=== PATIENT | female | born 1950 | race Caucasian/White ===

== ENCOUNTER 2021-01-04 09:19 | Emergency (ER) | payer OTHER, SELFPAY ==
[2021-01-04] VITALS (8 sets, daily range): BP systolic 135–160; BP diastolic 76–93; PULSE 68–80; RESP 12–19; TEMP 36.4; O2SAT 97–99
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
--- NOTE | ~2021-01-04 | CT_ITS ---
EXAMINATION: CT brain wo con EXAM DATE: 01/04/2021 10:55 INDICATION: History of seizures with breakthrough seizure . History stroke and dementia. TECHNIQUE: Spiral CT of the head was performed without contrast. Axial, coronal and sagittal images were reviewed. The dose-length product (DLP) for this examination was 605.33 mGy-cm. The exposure w as tailored according to patient size, and iterative reconstruction (ASIR) was used as additional dos e reduction technique. Comparison is made to prior examination from 11/27/2018. FINDINGS: There is a right frontal ventricular shunt, tip at the midline of the lateral ventricles. C ongenital cavum septum pellucidum. There is a large old right frontal lobe infarction, middle cerebra l artery distribution. There is moderate microangiopathy and mild to moderate cerebral atrophy. No obstructive hydrocephalus, extra-axial collections, acute intracranial hemorrhage, brain mass or e vidence of acute ischemic infarction. There is no significant interval change. Mastoid air cells and visualized sinuses are well aerated. The soft tissue is unremarkable. IMPRESSION: 1. No acute findings or interval change. 2. Large old right MCA infarction. 3. Senescent changes. Reviewed, dictated and finalized at location B.
--- NOTE | 2021-01-04 09:33 | ECG_ITS ---
Measurements Intervals [place] Rate: 0 P: [place]: 0 QRS: QRSD: 0 T: QT: 0 QTc: 0 Interpretive Statements SINUS RHYTHM INCOMPLETE RIGHT BUNDLE BRANCH BLOCK LOW VOLTAGE- PRECORDIAL LEADS BASELINE ARTIFACT- II, III, AVR, AVL ,AVF, V1-V6 BORDERLINE ECG Electronically Signed On 01-04-2021 14:44:24 CDT by Elia Kelley D.O.
[2021-01-04 09:56] LABS: Add Urine Microscopic? YES; Appearance Urine Cloudy (Clear); Bacteria Urine 3+ /hpf; Bilirubin Urine Negative (Negative); Blood Urine Negative (Negative); Color Urine Red (Yellow); Glucose Urine UA Negative (Negative); Ketones Urine Negative (Negative); Leukocyte Esterase Ur Trace LEU/UL (Negative); Mucus Urine Rare /lpf; Nitrate Urine Positive (Negative); Protein Urine 2+ mg/dL (Negative); Specific Grav Ur 1.016 (1.001-1.035); Squamous Epithelial Cell Urine Many /hpf (Few); Urobilinogen Urine Negative mg/dL (<2.0); WBC Urine 21-30 /hpf
--- NOTE | 2021-01-04 09:59 | ED.SEIZURE ---
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 Patient reportedly had a seizure witnessed by boyfriend this morning. Generalized shaking activity noted, lasted for approximately 1 to 2 minutes. EMS was called, patient was postictal at the time of their assessment. She was transported to this facility and is currently back to baseline. She is pleasant denies any acute complaints. She has been compliant with her Keppra. States she has not had a breakthrough seizure in a couple of years. Per my chart review, last admission was in 2018 for breakthrough seizure. Patient denies fever, chills or urinary symptoms. Related Data Home Medications Medication Instructions Recorded Confirmed acetaminophen 500 mg capsule See Rx Instructions .ROUTE .COMPLEX 09/01/19 doxycycline hyclate 100 mg capsule 100 mg PO BID cap 09/01/19 polyethylene glycol 3350 17 See Rx Instructions .ROUTE .COMPLEX 09/01/19 gram/dose oral powder phenytoin sodium extended 100 mg 100 mg PO BID cap 09/02/19 capsule Allergies Allergy/AdvReac Type Severity Reaction Status Date / Time codeine Allergy Unknown Unknown Verified 01/04/21 09:24 Review of Systems Review of Systems: Narrative: CONSTITUTIONAL: Denies fever, chills, or sweats. EYES: Denies visual changes, redness, or discharge. ENT: Denies rhinorrhea, congestion, sore throat, or otalgia. CARDIOVASCULAR: Denies chest pain, palpitations, or edema. RESPIRATORY: Denies cough or dyspnea. GASTROINTESTINAL: Denies abdominal pain, nausea, vomiting, or diarrhea. GENITOURINARY: Denies dysuria or hematuria. SKIN: Denies rash or itching. MUSCULOSKELETAL: Denies back pain, joint pain, or myalgia. NEUROLOGIC: Denies headache, numbness, or weakness. [facility] Past Medical History Medical History (Updated 01/04/21 @ 12:27 by Mónica Quintana MD) HLD (hyperlipidemia) HTN (hypertension) Seizures Family History Family History Father Family history of heart disease in male family member before age 55 Family history of cardiovascular disease Social History Social History Smoking status: Former smoker Alcohol intake: never Exam Narrative: Exam Narrative: GENERAL: Awake, alert, conversant HEAD: Normocephalic, atraumatic. EYES: PERRLA and EOMI. ENT: Nares clear, no rhinorrhea or epistaxis. Mucous membranes moist. NECK: Supple. CHEST: No respiratory distress, breathing even and non labored HEART: Regular rate, sinus rhythm ABDOMEN:Non distended, non tender EXTREMITIES: Normal range of motion. No edema. SKIN: Warm, dry, no rash. NEURO:No focal deficits. Alert and oriented x3 Course Vital Signs Vital signs: Vital Signs Temperature 36.4 C L 01/04/21 09:18 Pulse Rate 74 01/04/21 09:18 Respiratory Rate 18 01/04/21 09:18 Blood Pressure 160/90 H 01/04/21 09:18 Pulse Oximetry 97 01/04/21 09:18 Temperature 36.4 C L 01/04/21 09:18 Pulse Rate 80 01/04/21 11:23 Respiratory Rate 12 01/04/21 10:42 Blood Pressure 136/85 01/04/21 11:23 Pulse Oximetry 98 01/04/21 10:42 MDM - Seizure MDM Narrative Medical decision making narrative: Patient presenting for evaluation of breakthrough seizure this morning. At the time of assessment, patient is at baseline mentation, feeling well. No acute complaints. She states she has been compliant with her medications as he is are administered through t
[2021-01-04 10:27] LABS: Basophils Absolute Auto 0.1 K/mm3 (0.0-0.1); Basophils Percent Auto 0.6 % (0.2-1.2); Eosinophils Absolute Auto 0.2 K/mm3 (0-0.3); Eosinophils Percent Auto 2.7 % (0-4.4); Hematocrit 38.4 % (37.0-47.0); Hemoglobin 12.5 g/dL (12.0-15.0); Immature Granulocyte Absolute 0.04 K/mm3 (0.00-0.031); Immature Granulocyte Percent A 0.5 % (0-0.5); Lymphocytes Absolute Auto 1.32 K/mm3 (0.9-3.2); Lymphocytes Percent Auto 16.9 % (18.3-44.2); Mean Corpuscular HGB Conc 32.6 g/dl (32-36); Mean Corpuscular Hemoglobin 30.3 pg (26-34); Mean Platelet Volume 10.3 fl (7.4-10.4); Monocytes Absolute Auto 0.4 K/mm3 (0.1-0.6); Monocytes Percent Auto 5.5 % (2.6-8.5); Neutrophils Absolute Auto 5.8 K/mm3 (1.3-6.7); Neutrophils Percent Auto 73.8 % (45.5-73.1); Platelet Count Result 264 k/mm3 (150-375); Red Blood Count 4.13 M/mm3 (4.2-5.4); Red Cell Distribution Width 13.2 % (11.5-14.5); White Blood Count 7.8 K/mm3 (4.5-10.0)
--- NOTE | 2021-01-04 10:40 | PC.NURSE ---
Called Celeste degroot (or Jennifer?), added on Keppra [phone]
[2021-01-04 10:42] LABS: Alanine Aminotransferase 14 U/L (4-35); Albumin Level 4.4 g/dL (3.5-5.1); Alkaline Phosphatase 122 U/L (38-126); Anion Gap 9 mmol/L (8-16); Aspartate Amino Transferase 23 U/L (14-36); Bilirubin,Total 0.3 mg/dL (0.2-1.3); Blood Urea Nitrogen 12 mg/dL (7-17); Calcium 9.7 mg/dL (8.4-10.2); Carbon Dioxide 28 mmol/L (22-30); Chloride 106 mmol/L (98-107); Estimated Glomerular Filt Rate > 60; Glucose 120 mg/dL (65-105); Potassium 3.9 mmol/L (3.4-5.0); Sodium 143 mmol/L (137-145)
--- NOTE | 2021-01-04 13:17 | PC.NURSE ---
Called Suki degroot, added on Phenytoin [phone]
[2021-01-04 13:29] LABS: Phenytoin Dilantin 4 ug/mL (10-20)
[2021-01-06 21:12] LABS: Levetiracetam Keppra 18.7 mcg/mL (12.0-46.0)
== END 2021-01-04 13:19 ==
PROVIDERS: Emergency Provider Emergency Medicine; PCP Emergency Medicine
DX: R56.9 Unspecified convulsions (principal); N39.0 Urinary tract infection, site not specified; I10 Essential (primary) hypertension; E78.5 Hyperlipidemia, unspecified; Z87.820 Personal history of traumatic brain injury; Z87.891 Personal history of nicotine dependence; Z98.2 Presence of cerebrospinal fluid drainage device; I45.10 Unspecified right bundle-branch block
CPT/HCPCS: 36415; 51701; 70250; 70450; 71045; 74018; 80053; 80177; 80185; 81001; 85025; 87077; 87086; 87088; 87186; 93005; 99284

== ENCOUNTER 2021-03-25 11:31 | Emergency (ER) | payer OTHER, SELFPAY ==
--- NOTE | ~2021-03-25 | CT_ITS ---
EXAMINATION: CT abdomen pelvis wo con DATE: 03/25/2021 13:17 INDICATION: Lower abdominal pain TECHNIQUE: Computed tomography (CT) of the abdomen and pelvis was performed without intravenous contr ast. The dose-length product (DLP) was 999.60 mGy-cm. Automated exposure control and iterative recons truction technique were employed. COMPARISON: None FINDINGS: Minimal dependent atelectasis is present in the lung bases. The heart size is normal. The g allbladder is surgically absent. Within the limitations of noncontrast examination, the liver, spleen , pancreas, and adrenal glands are normal. The kidneys are unremarkable. There is calcified atheroscl erosis of the aorta and many of the other arteries. Ventricular peritoneal shunt catheter tubing cour ses in the anterior abdominal wall and ends in the mid anterior abdomen. No pathologically enlarged a bdominal or pelvic lymph nodes are identified. There is no free intraperitoneal gas or evidence of adore wel obstruction. Colonic diverticulosis is present without evidence of diverticulitis. There is lumba r dextroscoliosis and severe spondylosis. There are compression fractures of T12 and L1. A fat-contai mireille umbilical hernia is noted. IMPRESSION: 1. No CT correlate for the patient's symptoms. Reviewed, dictated and finalized at location A.
[2021-03-25 11:30] VITALS: BP 182/86; PULSE 56; RESP 18; TEMP 36.6; O2SAT 100
--- NOTE | 2021-03-25 11:54 | ED.ABDPAIN ---
HPI - Abdominal Pain General Chief Complaint: Abdominal Pain Stated Complaint: ABD PAIN Time Seen by Provider: 03/25/21 11:47 Source: patient Mode of arrival: ambulatory Limitations: no limitations History of Present Illness HPI narrative: Patient is a 71-year-old female complaining of lower abdominal pain, dull, 5 out of 10, nonradiating started yesterday, now resolved, currently denies any chest pain. Patient denies any chest pain, shortness of breath, nausea, vomiting, diarrhea, urinary symptoms, fever or chills. Related Data Home Medications Medication Instructions Recorded Confirmed acetaminophen 500 mg capsule See Rx Instructions .ROUTE .COMPLEX 09/01/19 doxycycline hyclate 100 mg capsule 100 mg PO BID cap 09/01/19 polyethylene glycol 3350 17 See Rx Instructions .ROUTE .COMPLEX 09/01/19 gram/dose oral powder phenytoin sodium extended 100 mg 100 mg PO BID cap 09/02/19 capsule Allergies Allergy/AdvReac Type Severity Reaction Status Date / Time codeine Allergy Unknown Unknown Verified 03/25/21 12:31 Review of Systems Review of Systems: All systems reviewed & are unremarkable except as noted in HPI and below Constitutional: Constitutional: Denies body ache(s), Denies chills, Denies excessive sweating, Denies fatigue, Denies fever(s), Denies headache(s), Denies lethargy, Denies malaise, Denies weakness and Denies weight loss Eyes: Eyes: Denies blurry vision, Denies change in vision and Denies loss of vision ENT: Denies dizziness, Denies ear discharge, Denies headache(s), Denies lip swelling, Denies epistaxis, Denies nasal congestion, Denies neck pain, Denies throat swelling and Denies tongue swelling Cardiovascular: Cardiovascular: Denies chest pain, Denies chest pain at rest, Denies chest pain with activity, Denies diaphoresis, Denies rapid heart rate, Denies edema, Denies irregular heart rhythm, Denies lightheadedness, Denies palpitations, Denies dyspnea and Denies dyspnea on exertion Respiratory: Respiratory: Denies chest congestion, Denies cough, Denies hemoptysis, Denies dyspnea and Denies dyspnea on exertion Gastrointestinal: Gastrointestinal: Denies melena, Denies hematochezia, Denies diarrhea, Denies nausea, Denies vomiting and Denies hematemesis Musculoskeletal: Musculoskeletal: Denies abnormal gait, Denies deformity, Denies joint swelling, Denies limited range of motion, Denies neck pain and Denies numbness Neurologic: Denies Abnormal speech present, Denies abnormal gait, Denies confusion, Denies dizziness, Denies headache(s), Denies focal weakness, Denies loss of vision, Denies numbness, Denies Other visual disturbances, Denies Sensory deficit (Neuro) and Denies weakness Psychiatric: Psychiatric: Denies confusion, Denies depression, Denies auditory hallucinations, Denies homicidal ideation and Denies suicidal ideation Endocrine: Endocrine: Denies cold intolerance, Denies excessive sweating, Denies fatigue, Denies heat intolerance and Denies palpitations Hematologic/Lymphatic: Hematologic/Lymphatic: Denies easy bleeding and Denies easy bruising Allergic/Immunologic: Allergic/Immunologic: Denies lip swelling, Denies throat swelling and Denies tongue swelling PMFSH Past Medical History Medical History (Updated 03/25/21 @ 13:51 by Dayron Blankenship MD) HLD (hyperlipidemia) HTN (hypertension) Seizures Family History Family History Father Family history of heart disease in male family member before age 55 Family history of cardiovascular disease Social History Social History Smoking status: Former smoker Alcohol intake: never Exam Const: General: cooperative, healthy appearing, comfortable, no acute distress, well developed, alert and awake; No confusion Orientation/consciousness: oriented to person, oriented to place, oriented to time, patient oriented x3 and No
--- NOTE | 2021-03-25 11:58 | PC.NURSE ---
Pt attempting to provide urine sample at this time.
[2021-03-25 12:05] LABS: Basophils Percent Auto 0.6 % (0.2-1.2); Eosinophils Absolute Auto 0.2 K/mm3 (0-0.3); Eosinophils Percent Auto 2.8 % (0-4.4); Hematocrit 38.4 % (37.0-47.0); Hemoglobin 12.7 g/dL (12.0-15.0); Immature Granulocyte Absolute 0.01 K/mm3 (0.00-0.031); Immature Granulocyte Percent A 0.1 % (0-0.5); Lymphocytes Absolute Auto 1.97 K/mm3 (0.9-3.2); Lymphocytes Percent Auto 27.3 % (18.3-44.2); Mean Corpuscular HGB Conc 33.1 g/dl (32-36); Mean Corpuscular Hemoglobin 30.6 pg (26-34); Mean Corpuscular Volume 92.5 fl (80-100); Mean Platelet Volume 10.2 fl (7.4-10.4); Monocytes Absolute Auto 0.7 K/mm3 (0.1-0.6); Monocytes Percent Auto 9.2 % (2.6-8.5); Neutrophils Absolute Auto 4.3 K/mm3 (1.3-6.7); Platelet Count Result 251 k/mm3 (150-375); Red Blood Count 4.15 M/mm3 (4.2-5.4); Red Cell Distribution Width 12.7 % (11.5-14.5); White Blood Count 7.2 K/mm3 (4.5-10.0)
[2021-03-25] MEDS: LACTATED RINGERS 1,000 ML 200 ML IV CONT (12:09)
[2021-03-25 12:10] LABS: Alanine Aminotransferase 15 U/L (4-35); Albumin Level 4.2 g/dL (3.5-5.1); Alkaline Phosphatase 135 U/L (38-126); Anion Gap 7 mmol/L (8-16); Aspartate Amino Transferase 16 U/L (14-36); Bilirubin,Total 0.2 mg/dL (0.2-1.3); Blood Urea Nitrogen 12 mg/dL (7-17); Calcium 9.8 mg/dL (8.4-10.2); Carbon Dioxide 29 mmol/L (22-30); Chloride 102 mmol/L (98-107); Estimated CRCL calculation 82 ml/min; Estimated Glomerular Filt Rate > 60; Glucose 103 mg/dL (65-110); Lipase 77 U/L (23-300); Potassium 3.8 mmol/L (3.4-5.0); Sodium 138 mmol/L (137-145)
[2021-03-25 13:00] LABS: Add Urine Microscopic? YES; Appearance Urine Clear (Clear); Bilirubin Urine Negative (Negative); Blood Urine 2+ (Negative); Budding Yeast Urine Present /hpf; Color Urine Yellow (Yellow); Glucose Urine UA Negative (Negative); Ketones Urine Negative (Negative); Leukocyte Esterase Ur Negative LEU/UL (Negative); Mucus Urine Rare /lpf; Nitrate Urine Negative (Negative); Protein Urine Negative (Negative); RBC Urine 51-75 /hpf (0-2); Specific Grav Ur 1.011 (1.001-1.035); Squamous Epithelial Cell Urine Few /hpf (Few); Urobilinogen Urine Negative mg/dL (<2.0); WBC Urine 0-3 /hpf
[2021-03-25 14:32] VITALS: BP 180/78; PULSE 58; RESP 20; O2SAT 100
== END 2021-03-25 14:35 ==
PROVIDERS: Emergency Provider Emergency Medicine; PCP Pediatrics
DX: R10.30 Lower abdominal pain, unspecified (principal); E78.5 Hyperlipidemia, unspecified; I10 Essential (primary) hypertension; Z87.891 Personal history of nicotine dependence
CPT/HCPCS: 36415; 51701; 74176; 80053; 81001; 83690; 85025; 96360; 96361; 99284; J7120

== ENCOUNTER 2022-11-27 09:05 | Emergency (ER) | payer OTHER, SELFPAY ==
--- NOTE | ~2022-11-27 | CT_ITS ---
EXAMINATION: CT brain wo con DATE: 11/27/2022 09:29 INDICATION: Altered mental status. TECHNIQUE: Computed tomography (CT) of the head was performed without intravenous contrast. The mA wa s adjusted according to patient size. Iterative reconstruction technique was employed. The dose-lengt h product was 681.00 mGy-cm. COMPARISON: Head CT 01/04/2021 FINDINGS: There are embolization coils inferior to frontal horn of left lateral ventricle. There is c hronic encephalomalacia involving right frontal lobe and anterior right insula. There are scattered a reas of low attenuation in the cerebral white matter. There is a right frontal ventriculostomy cathet er with tip at the midline. There is no intracranial hemorrhage, acute infarction, or abnormal intrac ranial mass lesion. The ventricles are normal in size. Cavum septum pellucidum is noted. There is mil d mucosal thickening in the paranasal sinuses. The orbits are normal. The mastoid air cells are nagi l. IMPRESSION: 1. Chronic encephalomalacia involving right frontal lobe and anterior right insula. 2. Stable extensive nonspecific cerebral white matter disease, which likely represents chronic small vessel ischemic disease. Reviewed, dictated and finalized at location A. IMPRESSION: 1. Chronic encephalomalacia involving right frontal lobe and anterior right ins dewin. 2. Stable extensive nonspecific cerebral white matter disease, which likely rep resents chronic small vessel ischemic disease.
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
[2022-11-27 09:08] VITALS: BP 119/75; PULSE 79; RESP 20; TEMP 37.2; O2SAT 92
--- NOTE | 2022-11-27 09:11 | ECG_ITS ---
Measurements Intervals [place] Rate: 79 P: 13 MD: 180 QRS: 44 QRSD: 87 T: 49 QT: 374 QTc: 430 Interpretive Statements SINUS RHYTHM LOW QRS VOLTAGE IN PRECORDIAL LEADS EARLY PRECORDIAL R/S TRANSITION CONSIDER INFERIOR INFARCT, AGE INDETERMINATE BORDERLINE ST-T WAVE ABNORMALITY- ANTERIOR LEADS BASELINE ARTIFACT- I, III, AVL, V3 ABNORMAL ECG COMPARED TO ECG 01/04/2021 09:24:33 NO SIGNIFICANT CHANGES Electronically Signed On 11-27-2022 9:34:39 CDT by Elia Kelley D.O.
--- NOTE | 2022-11-27 09:24 | ED.WEAKNESS ---
HPI - Weakness General Chief complaint: Weakness Stated complaint: weakness, confusion History of Present Illness HPI Narrative: This is a 72-year-old female with past history of hypertension, seizure disorder who is brought in by EMS from her assisted for altered mental status. EMS reports the patient gradually developed confusion over the past day. She is alert and oriented x4 at baseline and generally mobile. Today she is oriented to self and location. Related Data Home Medications Medication Instructions Recorded Confirmed acetaminophen 500 mg capsule See Rx Instructions .Route .COMPLEX 09/01/19 11/21/22 (Mapap (acetaminophen)) polyethylene glycol 3350 17 See Rx Instructions .Route .COMPLEX 09/01/19 11/21/22 gram/dose oral powder (Miralax) Allergies Allergy/AdvReac Type Severity Reaction Status Date / Time codeine Allergy Unknown Unknown Verified 11/27/22 09:24 Review of Systems Review of Systems: Review of systems limited by patient's altered mental status CONSTITUTIONAL: Denies fever, chills, or sweats. CARDIOVASCULAR: Denies chest pain, palpitations, or edema. RESPIRATORY: Cough denies dyspnea. GASTROINTESTINAL: Denies abdominal pain, nausea, vomiting, or diarrhea. GENITOURINARY: Denies dysuria or hematuria. SKIN: Denies rash or itching. MUSCULOSKELETAL: Denies back pain, joint pain, or myalgia. NEUROLOGIC: Denies headache, numbness, dizziness, or weakness. PSYCHIATRIC: Denies anxiety or depression. [facility] Past Medical History Medical History Aneurysm Shunt, 2001 Arthritis History of stroke with residual deficit HLD (hyperlipidemia) HTN (hypertension) Melanoma Seizures Stroke Family History Family History Father Family history of heart disease in male family member before age 55 Family history of cardiovascular disease Hypertension Mother Cerebrovascular accident Social History Social History Smoking status: Former smoker Tobacco type: cigarettes Alcohol intake: never Substance use: never Lack of Transportation: No Lack of Food: Never True Current Housing: I Have Housing Concerned About Future Housing: No Difficulty Paying Gas/Electric Bills: No Difficulty Paying for Meds: No Currently Unemployed: No Education: High School Diploma/GED Difficulty w/ Childcare or Family Care: No Living arrangements: assisted Additional living arrangements comments: Inderjit Soto Exam Narrative: GENERAL: Well-developed, well-nourished, and in no acute distress. Smells strongly of urine HEAD: Normocephalic, atraumatic. EYES: PERRLA and EOMI. ENT: Nares clear, no rhinorrhea or epistaxis. Mucous membranes moist. Oropharynx without tonsillar hypertrophy exudate or other lesions. Bilateral TMs pearly cooper nonbulging NECK: Supple. No adenopathy or masses. No carotid bruits or JVD. No midline spine tenderness to palpation, no step-off or crepitus CHEST: Clear to auscultation. No respiratory distress. No wheezes rales or rhonchi HEART: Regular rate and rhythm. No murmur heard. Normal peripheral pulses. ABDOMEN: Soft, nontender, nondistended, normal active bowel sounds. EXTREMITIES: Normal range of motion. No edema. SKIN: Warm, dry, no rash. NEURO: No focal deficits. Alert and oriented x2 to self and location. Strength 5/5 in all extremities, sensation intact bilaterally PSYCH: Normal mood and affect. Course Course Emergency Course: 11:30 - UA consistent with urinary tract infection. CBC unremarkable. Chemistries demonstrate mild hyponatremia of 132 but otherwise unremarkable. Troponin negative. Urine drug screen negative. Chest x-ray not concerning for pneumonia or other acute cardiothoracic process. CT head shows chronic encephalomalacia without acute changes including ma
[2022-11-27 09:30] VITALS: BP 125/69; PULSE 83; RESP 16; O2SAT 94
[2022-11-27] MEDS: SODIUM CHLORIDE 0.9% IV 1,000 ML 999 ML IV CONT (09:46)
[2022-11-27 09:49] LABS: Basophils Absolute Auto 0.1 K/mm3 (0.0-0.1); Basophils Percent Auto 0.7 % (0.2-1.2); Eosinophils Absolute Auto 0.2 K/mm3 (0-0.3); Eosinophils Percent Auto 2.9 % (0-4.4); Hemoglobin 12.4 g/dL (12.0-15.0); Immature Granulocyte Absolute 0.02 K/mm3 (0.00-0.031); Immature Granulocyte Percent A 0.3 % (0-0.5); Lymphocytes Percent Auto 17.7 % (18.3-44.2); Mean Corpuscular HGB Conc 33.5 g/dl (32-36); Mean Corpuscular Hemoglobin 30.8 pg (26-34); Mean Corpuscular Volume 91.8 fl (80-100); Mean Platelet Volume 10.2 fl (7.4-10.4); Monocytes Absolute Auto 0.7 K/mm3 (0.1-0.6); Monocytes Percent Auto 9.9 % (2.6-8.5); Neutrophils Absolute Auto 4.6 K/mm3 (1.3-6.7); Neutrophils Percent Auto 68.5 % (45.5-73.1); Platelet Count Result 230 k/mm3 (150-375); Red Blood Count 4.03 M/mm3 (4.2-5.4); Red Cell Distribution Width 12.6 % (11.5-14.5); White Blood Count 6.8 K/mm3 (4.5-10.0)
[2022-11-27 09:57] LABS: Lactic Acid Reflex 1.2 mmol/L (0.7-2.0)
[2022-11-27 09:58] LABS: Alanine Aminotransferase 25 U/L (6-35); Albumin Level 4.4 g/dL (3.5-5.1); Alkaline Phosphatase 145 U/L (38-126); Anion Gap 4 mmol/L (8-16); Aspartate Amino Transferase 27 U/L (14-36); Bilirubin,Total 0.7 mg/dL (0.2-1.3); Blood Urea Nitrogen 13 mg/dL (7-17); Calcium 8.6 mg/dL (8.4-10.2); Carbon Dioxide 30 mmol/L (22-30); Chloride 98 mmol/L (98-107); Estimated Glomerular Filt Rate > 60; Glucose 135 mg/dL (65-110); Potassium 3.8 mmol/L (3.4-5.0); Sodium 132 mmol/L (137-145)
[2022-11-27 10:00] VITALS: BP 138/81; PULSE 80; RESP 16; O2SAT 94
[2022-11-27 10:03] LABS: Partial Thromboplastin Time 21.7 SECONDS (22.3-36.8)
[2022-11-27 10:09] LABS: Troponin I < 0.012 ng/mL (0.000-0.034)
[2022-11-27 10:23] LABS: Appearance Urine Cloudy (Clear); Bacteria Urine 4+ /hpf; Bilirubin Urine Negative (Negative); Blood Urine Negative (Negative); Color Urine Yellow (Yellow); Glucose Urine UA Negative (Negative); Ketones Urine Trace mg/dL (Negative); Leukocyte Esterase Ur 2+ LEU/UL (Negative); Mucus Urine Present /lpf; Nitrate Urine Positive (Negative); Non Pathogenic Casts 0-2; Protein Urine 1+ mg/dL (Negative); Specific Grav Ur 1.015 (1.001-1.035); Squamous Epithelial Cell Urine Occasional /hpf (Few); pH Urine 7.5 (5.0-9.0)
[2022-11-27 10:24] LABS: Amphetamine Screen Urine Negative (Negative); Barbiturate Screen Urine Negative (Negative); Benzodiazepines Screen Urine Negative (Negative); Cannabinoid Screen Urine Negative (Negative); Cocaine Screen Urine Negative (Negative); Methadone Screen Urine Negative (Negative); Opiate Screen Urine Negative (Negative); Phencyclidine Screen Urine Negative (Negative)
[2022-11-27 10:25] LABS: Add Urine Microscopic? YES
[2022-11-27 11:46] VITALS: BP 131/69; PULSE 75; RESP 18; O2SAT 94
== END 2022-11-27 12:30 | disposition home or self-care (01) ==
PROVIDERS: Emergency Provider Preventive Medicine Aerospace Medicine; PCP Internal Medicine
DX: R41.82 Altered mental status, unspecified (principal); N39.0 Urinary tract infection, site not specified; R94.31 Abnormal electrocardiogram [ECG] [EKG]; M19.90 Unspecified osteoarthritis, unspecified site; I10 Essential (primary) hypertension; E78.5 Hyperlipidemia, unspecified; G40.909 Epilepsy, unspecified, not intractable, without status epilepticus; Z79.02 Long term (current) use of antithrombotics/antiplatelets; Z79.899 Other long term (current) drug therapy
CPT/HCPCS: 36415; 70450; 71045; 80053; 80307; 81001; 83605; 84484; 85025; 85730; 87077; 87086; 87186; 93005; 96361; 96365; 99284; J0696; J7030

== ENCOUNTER 2023-01-29 09:14 | Emergency (ER) | payer OTHER, SELFPAY ==
[2023-01-29] VITALS (13 sets, daily range): BP systolic 180–182; BP diastolic 88–90; PULSE 59–81; RESP 10–19; TEMP 36.8; O2SAT 96–100
--- NOTE | ~2023-01-29 | CT_ITS ---
EXAMINATION: CT brain wo con INDICATION: Transient alteration of awareness, seizure COMPARISON: 11/27/2022 TECHNIQUE: Standard unenhanced head CT. The dose-length product (DLP) was 681.00 mGy-cm. The mA was a djusted according to patient size. Iterative reconstruction technique was employed. FINDINGS: Embolization coils are again noted inferior to the frontal horn of the left lateral ventric le. Also noted is chronic encephalomalacia involving the right frontal lobe and anterior right insula . There is a right frontal ventriculostomy catheter with its tip in the midline. There is no acute in traparenchymal hemorrhage. No evidence of mass lesion. No evidence of acute infarction. There is mild periventricular and subcortical hypodensity probably related to small vessel ischemic disease. There is mild prominence of the sulci and ventricles related to cerebral atrophy. Intracranial calcified c erebral atherosclerosis is noted. There are no extra-axial collections. There is no mass effect or mi dline shift. The orbits and soft tissues are unremarkable. The visualized sinuses and mastoid air lisandra ls are well aerated. IMPRESSION: 1. Areas of chronic encephalomalacia in the right frontal lobe and anterior right insula without acut e intracranial abnormality. 2. Age related findings. Reviewed, dictated and finalized at location B. IMPRESSION: 1. Areas of chronic encephalomalacia in the right frontal lobe and anterior rig ht insula without acute intracranial abnormality. 2. Age related findings.
--- NOTE | 2023-01-29 09:17 | ECG_ITS ---
Measurements Intervals [place] Rate: 62 P: 11 CO: 183 QRS: 13 QRSD: 86 T: 21 QT: 399 QTc: 407 Interpretive Statements SINUS RHYTHM RSR' IN V1 OR V2, CONSIDER RIGHT VENTRICULAR HYPERTROPHY OR RIGHT VCD LOW QRS VOLTAGE IN PRECORDIAL LEADS CONSIDER INFERIOR INFARCT, AGE INDETERMINATE BASELINE ARTIFACT- I, II, AVR, AVL, V1-V5 ABNORMAL ECG COMPARED TO ECG 11/27/2022 09:14:17 NO SIGNIFICANT CHANGES Electronically Signed On 01-29-2023 10:19:28 CDT by Elia Kelley D.O.
--- NOTE | 2023-01-29 09:33 | ED.SEIZURE ---
HPI - Seizure General Chief Complaint: Seizure Stated Complaint: seizure Time Seen by Provider: 01/29/23 09:23 History of Present Illness HPI Narrative: This is a 72-year-old female with past history of seizures (on Keppra and Dilantin), right-sided subarachnoid hemorrhage with subsequent left weakness who is brought in by EMS after seizure. The patient states she is taking her medications regularly and denies any recent change in her medications. She states she was lying in bed at the time and denies falls. She has no other complaints today. Seizure History: Yes Related Data Home Medications Medication Instructions Recorded Confirmed acetaminophen 500 mg capsule See Rx Instructions .Route .COMPLEX 09/01/19 11/21/22 (Mapap (acetaminophen)) polyethylene glycol 3350 17 See Rx Instructions .Route .COMPLEX 09/01/19 11/21/22 gram/dose oral powder (Miralax) Allergies Allergy/AdvReac Type Severity Reaction Status Date / Time codeine Allergy Unknown Unknown Verified 01/29/23 09:17 Review of Systems Review of Systems: CONSTITUTIONAL: Denies fever, chills, or sweats. CARDIOVASCULAR: Denies chest pain, palpitations, or edema. RESPIRATORY: Denies cough or dyspnea. GASTROINTESTINAL: Denies abdominal pain, nausea, vomiting, or diarrhea. GENITOURINARY: Denies dysuria or hematuria. SKIN: Denies rash or itching. MUSCULOSKELETAL: Denies back pain, joint pain, or myalgia. NEUROLOGIC: Denies headache, numbness, dizziness, or new weakness. PSYCHIATRIC: Denies anxiety or depression. [facility] Past Medical History Medical History Aneurysm Shunt, 2002 Arthritis History of stroke with residual deficit HLD (hyperlipidemia) HTN (hypertension) Melanoma Seizures Stroke Family History Family History Father Family history of heart disease in male family member before age 55 Family history of cardiovascular disease Hypertension Mother Cerebrovascular accident Social History Social History Smoking status: Former smoker Tobacco type: cigarettes Alcohol intake: never Substance use: never Lack of Transportation: No Lack of Food: Never True Current Housing: I Have Housing Concerned About Future Housing: No Difficulty Paying Gas/Electric Bills: No Difficulty Paying for Meds: No Currently Unemployed: No Education: High School Diploma/GED Difficulty w/ Childcare or Family Care: No Living arrangements: halfway Additional living arrangements comments: Inderjit Soto Exam Narrative: GENERAL: Well-developed, well-nourished, and in no acute distress. HEAD: Normocephalic, atraumatic. EYES: PERRLA and EOMI. ENT: Poor dentition. Nares clear, no rhinorrhea or epistaxis. Mucous membranes moist. Oropharynx without tonsillar hypertrophy exudate or other lesions. NECK: Supple. No adenopathy or masses. No carotid bruits or JVD. No midline spine tenderness to palpation, no step-off or crepitus CHEST: Clear to auscultation. No respiratory distress. No wheezes rales or rhonchi HEART: Regular rate and rhythm. No murmur heard. Normal peripheral pulses. ABDOMEN: Soft, nontender, nondistended, normal active bowel sounds. BACK: No midline spine tenderness to palpation, no step-off or crepitus. EXTREMITIES: Normal range of motion. No edema. SKIN: Warm, dry, no rash. NEURO: Alert and oriented x2 (location and self). Strength 5/5 in the right upper and lower extremities, strength 4/5 in the left upper and lower extremities. Sensation intact bilateral PSYCH: Normal mood and affect. Course Course Emergency Course: 09:38 - Review of patient's prior documentation, shows history of left-sided weakness as documented by Dr. Calvillo (neurology). 11:10 - CT head unremarkable. CBC unremarkable. Chemistries demonstrate mild hyponatremia
[2023-01-29 09:58] LABS: Basophils Absolute Auto 0.1 K/mm3 (0.0-0.1); Basophils Percent Auto 0.8 % (0.2-1.2); Eosinophils Absolute Auto 0.2 K/mm3 (0-0.3); Eosinophils Percent Auto 3.3 % (0-4.4); Hematocrit 39.3 % (37.0-47.0); Hemoglobin 12.7 g/dL (12.0-15.0); Immature Granulocyte Absolute 0.02 K/mm3 (0.00-0.031); Immature Granulocyte Percent A 0.3 % (0-0.5); Immature Platelet Fraction Pct 4.8 % (0.9-11.2); Lymphocytes Absolute Auto 1.94 K/mm3 (0.9-3.2); Lymphocytes Percent Auto 30.4 % (18.3-44.2); Mean Corpuscular HGB Conc 32.3 g/dl (32-36); Mean Corpuscular Hemoglobin 30.2 pg (26-34); Mean Corpuscular Volume 93.6 fl (80-100); Mean Platelet Volume 10.8 fl (7.4-10.4); Monocytes Absolute Auto 0.5 K/mm3 (0.1-0.6); Neutrophils Absolute Auto 3.7 K/mm3 (1.3-6.7); Neutrophils Percent Auto 58.2 % (45.5-73.1); Platelet Count Result 274 k/mm3 (150-375); Red Cell Distribution Width 12.8 % (11.5-14.5); White Blood Count 6.4 K/mm3 (4.5-10.0)
[2023-01-29 10:04] LABS: Creatine Kinase 42 U/L (30-135); Magnesium 2.1 mg/dL (1.6-2.3)
[2023-01-29 10:17] LABS: Alanine Aminotransferase 20 U/L (6-35); Albumin Level 4.1 g/dL (3.5-5.1); Alkaline Phosphatase 111 U/L (38-126); Anion Gap 3 mmol/L (8-16); Aspartate Amino Transferase 21 U/L (14-36); Bilirubin,Total 0.5 mg/dL (0.2-1.3); Blood Urea Nitrogen 16 mg/dL (7-17); Carbon Dioxide 26 mmol/L (22-30); Chloride 103 mmol/L (98-107); Estimated CRCL calculation 82 ml/min; Estimated Glomerular Filt Rate > 60; Glucose 116 mg/dL (65-110); Phenytoin Dilantin 4 ug/mL (10-20); Potassium 4.2 mmol/L (3.4-5.0); Sodium 132 mmol/L (137-145)
[2023-01-29 10:43] LABS: Appearance Urine Turbid (Clear); Bacteria Urine 4+ /hpf; Bilirubin Urine Negative (Negative); Blood Urine Negative (Negative); Color Urine Yellow (Yellow); Glucose Urine UA Negative (Negative); Ketones Urine Negative (Negative); Leukocyte Esterase Ur Negative LEU/UL (Negative); Nitrate Urine Positive (Negative); Non Pathogenic Casts 0-2; Protein Urine Negative (Negative); RBC Urine 0-2 /hpf (0-2); Specific Grav Ur 1.011 (1.001-1.035); Squamous Epithelial Cell Urine None seen /hpf (Few); Urobilinogen Urine 0.2 mg/dL (<2.0); WBC Urine 0-5 /hpf
[2023-01-29 11:07] LABS: Add Urine Microscopic? YES
[2023-01-29] MEDS: PHENYTOIN SODIUM INJ (*BKC) 1,000 MG in SODIUM CHLORIDE 0.9% IV 100 ML 360 MG IVPB (11:56)
--- NOTE | 2023-01-29 12:31 | PC.NURSE ---
Pts daughter, Luisa, called for a ride home and is currently working on that. Pt given scrubs to wear home.
[2023-01-31 18:08] LABS: Levetiracetam Keppra 16.3 mcg/mL (6.0-46.0)
== END 2023-01-29 12:45 ==
PROVIDERS: Emergency Provider Preventive Medicine Aerospace Medicine; PCP Internal Medicine
DX: R56.9 Unspecified convulsions (principal); N39.0 Urinary tract infection, site not specified; E78.5 Hyperlipidemia, unspecified; I10 Essential (primary) hypertension; Z87.891 Personal history of nicotine dependence; Z79.899 Other long term (current) drug therapy; Z91.148 Patient's other noncompliance with medication regimen for other reason
CPT/HCPCS: 36415; 70450; 80053; 80177; 80185; 81001; 82550; 83735; 85025; 85055; 93005; 99284; J1165

== ENCOUNTER 2023-05-25 16:09 | Emergency (ER) | payer OTHER, SELFPAY ==
[2023-05-25] VITALS (25 sets, daily range): BP systolic 118–167; BP diastolic 63–89; PULSE 52–67; RESP 12–23; TEMP 36.2; O2SAT 96–100
--- NOTE | ~2023-05-25 | XR_ITS ---
XR chest 1V portable 05/25/2023 16:56 Indication: CVA. Procedure: AP portable chest Comparison: 11/27/2022 Findings: Heart size normal. There are metallic fragments overlying the left upper thorax with multip le healed left rib fractures. There is a right-sided ventriculoperitoneal shunt. No focal air space d isease, pulmonary edema, pleural effusion or suspected pneumothorax. Impression: 1: No acute cardiopulmonary disease. Reviewed, dictated and finalized at location A. Impression: 1: No acute cardiopulmonary disease.
--- NOTE | ~2023-05-25 | CT_ITS ---
EXAMINATION: CT brain wo con DATE: 05/25/2023 16:18 INDICATION: Stroke with right-sided facial droop TECHNIQUE: Computed tomography (CT) of the head was performed without intravenous contrast. Sagittal and coronal reconstructions were performed. The mA was adjusted according to patient size. Iterative reconstruction technique was employed. The dose-length product was 681.00 mGy-cm. COMPARISON: head CT dated 01/29/2023 FINDINGS: No change in position of a right frontal ventriculostomy catheter which extends to the midline with d istal tip likely in the region of the cavum septum pellucidum. Also unchanged are embolization coils inferior to the frontal horn of the left lateral ventricle. Stable appearance of a moderate-sized reg ion of encephalomalacia involving the right frontal lobe, anterior right temporal lobe, right insula and portion of the underlying right basal ganglia consistent with chronic infarct in the right middle cerebral artery vascular distribution. No acute intracranial hemorrhage, acute infarction or abnorma l extra axial fluid collection. There is extensive scattered white matter hypoattenuation consistent with chronic small vessel ischemic disease. Ventricles are normal and symmetric. No mass/mass effect . Intracranial calcified cerebral atherosclerosis is noted. The orbits, paranasal sinuses and mastoid air cells are normal. IMPRESSION: 1. No acute intracranial process. 2. Stable appearance of moderate size region of chronic and subtle malacia along the right frontal lo be, anterior right temporal lobe, insula and small portion of the underlying right basal ganglia like ly sequela of chronic infarct in the right middle cerebral artery vascular distribution. 3. Extensive scattered white matter hypoattenuation consistent with chronic small vessel ischemic dis ease. Reviewed, dictated and finalized at location A. IMPRESSION: 1. No acute intracranial process. 2. Stable appearance of moderate size region of chronic and subtle malacia pradeep g the right frontal lobe, anterior right temporal lobe, insula and small portio n of the underlying right basal ganglia likely sequela of chronic infarct in th e right middle cerebral artery vascular distribution. 3. Extensive scattered white matter hypoattenuation consistent with chronic sma ll vessel ischemic disease.
--- NOTE | 2023-05-25 16:08 | ECG_ITS ---
Measurements Intervals [place] Rate: 51 P: 0 UT: 200 QRS: 5 QRSD: 86 T: 19 QT: 451 QTc: 416 Interpretive Statements SINUS BRADYCARDIA BORDERLINE AV CONDUCTION DELAY RSR' IN V1 OR V2, PROBABLY NORMAL VARIANT LOW QRS VOLTAGE IN PRECORDIAL LEADS INFERIOR INFARCT, AGE INDETERMINATE BASELINE ARTIFACT- I, II, III, AVL, AVF, V4-V5 ABNORMAL ECG NO PREVIOUS ECG AVAILABLE FOR COMPARISON Electronically Signed On 05-25-2023 16:45:05 CDT by Elia Kelley D.O.
[2023-05-25 16:25] LABS: Glucose Point of Care 94 mg/dl (65-105)
--- NOTE | 2023-05-25 16:48 | ED.NEUROSD ---
HPI - Neuro Symptoms/Deficit General Chief Complaint: Suspected CVA Stated Complaint: AMS, LKW 1400 Time Seen by Provider: 05/25/23 16:23 Source: patient and EMS Mode of arrival: EMS History of Present Illness HPI Narrative: 73 years old white female came from [facility] with possible slurred speech and increased confusion COMPOSITION ROOFER saw the patient and reported to the nurse who called 911. The nurse did not examine the patient and evaluate patient prior to arrival. On arrival patient is awake, oriented to her name and her birthdate, no slurred speech, or focal neurodeficit. History of dementia/Alzheimer and stroke.. The [facility] nurse is telling me that patient is awake, alert and oriented to her name and place Related Data Home Medications Medication Instructions Recorded Confirmed acetaminophen 500 mg capsule See Rx Instructions .Route .COMPLEX 09/01/19 11/21/22 (Mapap (acetaminophen)) polyethylene glycol 3350 17 See Rx Instructions .Route .COMPLEX 09/01/19 11/21/22 gram/dose oral powder (Miralax) Allergies Allergy/AdvReac Type Severity Reaction Status Date / Time codeine Allergy Unknown Unknown Verified 01/29/23 09:17 Review of Systems Review of Systems: ROS unobtainable: Yes unobtainable due to medical condition and unobtainable due to mental status PMFSH Past Medical History Medical History Aneurysm Shunt, 2001 Arthritis History of stroke with residual deficit HLD (hyperlipidemia) HTN (hypertension) Melanoma Seizures Stroke Family History Family History Father Family history of heart disease in male family member before age 55 Family history of cardiovascular disease Hypertension Mother Cerebrovascular accident Social History Social History Smoking status: Former smoker Tobacco type: cigarettes Alcohol intake: never Substance use: never Lack of Transportation: No Lack of Food: Never True Current Housing: I Have Housing Concerned About Future Housing: No Difficulty Paying Gas/Electric Bills: No Difficulty Paying for Meds: No Currently Unemployed: No Education: High School Diploma/GED Difficulty w/ Childcare or Family Care: No Living arrangements: [facility] Additional living arrangements comments: Inderjit Soto Exam Narrative: General appearance: Well-developed, well-nourished Skin: Normal color Head: Normocephalic, nontraumatic Eyes: Clear conjunctiva ENT: Oropharynx normal, ears normal, nose normal Neck: Supple, nontender Chest and respiratory: Airway patent, no respiratory distress, no accessory muscle use Heart: Regular rate/rhythm Abdomen: Soft, nontender, no organomegaly, quiet bowel sounds Vascular: Normal peripheral pulses, normal capillary refill. Musculoskeletal: Normal range of motion, nontender back Neurologic: Alert and oriented to her name and her birthdate Course Reevaluation(s) Reevaluation #1: Patient smiling, looks comfortable, joking with me. Date: 05/25/23 Time: 18:49 Reevaluation #2: Patient care turned over to Dr. MITCHELL at shift change, awaiting labs,, disposition. Patient been resting quietly in the emergency room without any issues or problems. Date: 05/25/23 Time: 19:01 Vital Signs Vital signs: Vital Signs Temperature 36.2 C L 05/25/23 16:24 Pulse Rate 58 L 05/25/23 16:24 Respiratory Rate 17 05/25/23 16:24 Blood Pressure 167/89 H 05/25/23 16:24 Pulse Oximetry 99 05/25/23 16:24 Oxygen Delivery Room Air 05/25/23 16:24 Temperature 36.2 C L
--- NOTE | 2023-05-25 17:00 | PC.NURSE ---
called Luisa pt daughter to determine pt info and bashir galeana
--- NOTE | 2023-05-25 17:02 | PC.NURSE ---
called pt daughter Camden @1700 to determine pt info and baseline. camden states pt does not have a diagnosis of alzheimers but instead has hx of brain anurysm in 40's and hx of stroke a few years ago that caused left sided deficits. camden also states pt has a hx of seizures and frequent UTIs. when asking the pt orientation questions pt can state first name, but is unable to state year, current month, daughters name, or where we are at currently.
--- NOTE | 2023-05-25 17:12 | PC.NURSE ---
Multiple RNs have attempted IV access without success. Vascular transmission repairer not available. EDP made aware.
--- NOTE | 2023-05-25 17:14 | PC.NURSE ---
Phleb tech called to draw labs d/t pt being difficult stick.
[2023-05-25 18:07] LABS: Appearance Urine Cloudy (Clear); Bacteria Urine 4+ /hpf; Bilirubin Urine Negative (Negative); Blood Urine Negative (Negative); Color Urine Yellow (Yellow); Glucose Urine UA Negative (Negative); Ketones Urine Negative (Negative); Leukocyte Esterase Ur Trace LEU/UL (Negative); Need Manual Microscopic Reviewed; Nitrate Urine Positive (Negative); Non Pathogenic Casts 0-2; Protein Urine Negative (Negative); Specific Grav Ur 1.007 (1.001-1.035); Squamous Epithelial Cell Urine None seen /hpf (Few); Urobilinogen Urine 0.2 mg/dL (<2.0); WBC Urine 0-5 /hpf
[2023-05-25 18:10] LABS: Add Urine Microscopic? YES
[2023-05-25 18:45] LABS: Basophils Percent Auto 0.6 % (0.2-1.2); Eosinophils Absolute Auto 0.2 K/mm3 (0-0.3); Eosinophils Percent Auto 3.2 % (0-4.4); Hematocrit 40.2 % (37.0-47.0); Immature Granulocyte Absolute 0.02 K/mm3 (0.00-0.031); Immature Granulocyte Percent A 0.3 % (0-0.5); Lymphocytes Absolute Auto 2.31 K/mm3 (0.9-3.2); Mean Corpuscular HGB Conc 32.3 g/dl (32-36); Mean Corpuscular Hemoglobin 29.9 pg (26-34); Mean Corpuscular Volume 92.4 fl (80-100); Mean Platelet Volume 10.3 fl (7.4-10.4); Monocytes Absolute Auto 0.5 K/mm3 (0.1-0.6); Neutrophils Absolute Auto 3.7 K/mm3 (1.3-6.7); Neutrophils Percent Auto 53.9 % (45.5-73.1); Platelet Count Result 298 k/mm3 (150-375); Red Blood Count 4.35 M/mm3 (4.2-5.4); Red Cell Distribution Width 12.9 % (11.5-14.5); White Blood Count 6.8 K/mm3 (4.5-10.0)
[2023-05-25 18:56] LABS: INR 0.9; Prothrombin Time 12.6 Seconds (11.1-14.7)
[2023-05-25 18:59] LABS: Alanine Aminotransferase 17 U/L (6-35); Albumin Level 4.5 g/dL (3.5-5.1); Alkaline Phosphatase 136 U/L (38-126); Anion Gap 6 mmol/L (8-16); Aspartate Amino Transferase 21 U/L (14-36); Bilirubin,Total 0.5 mg/dL (0.2-1.3); Blood Urea Nitrogen 10 mg/dL (7-17); Calcium 9.5 mg/dL (8.4-10.2); Carbon Dioxide 28 mmol/L (22-30); Chloride 100 mmol/L (98-107); Estimated Glomerular Filt Rate > 60; Glucose 93 mg/dL (65-110); Potassium 3.9 mmol/L (3.4-5.0); Sodium 134 mmol/L (137-145)
[2023-05-25 19:10] LABS: Troponin I < 0.012 ng/mL (0.000-0.034)
--- NOTE | 2023-05-25 20:18 | ED.NEUROSD ---
HPI - Neuro Symptoms/Deficit General Chief Complaint: Suspected CVA Stated Complaint: AMS, LKW 1400 Time Seen by Provider: 05/25/23 16:23 Source: patient and EMS Mode of arrival: EMS Related Data Home Medications Medication Instructions Recorded Confirmed acetaminophen 500 mg capsule See Rx Instructions .Route .COMPLEX 09/01/19 11/21/22 (Mapap (acetaminophen)) polyethylene glycol 3350 17 See Rx Instructions .Route .COMPLEX 09/01/19 11/21/22 gram/dose oral powder (Miralax) Allergies Allergy/AdvReac Type Severity Reaction Status Date / Time codeine Allergy Unknown Unknown Verified 01/29/23 09:17 [facility] Past Medical History Medical History Aneurysm Shunt, 2001 Arthritis History of stroke with residual deficit HLD (hyperlipidemia) HTN (hypertension) Melanoma Seizures Stroke Family History Family History Father Family history of heart disease in male family member before age 55 Family history of cardiovascular disease Hypertension Mother Cerebrovascular accident Social History Social History Smoking status: Former smoker Tobacco type: cigarettes Alcohol intake: never Substance use: never Lack of Transportation: No Lack of Food: Never True Current Housing: I Have Housing Concerned About Future Housing: No Difficulty Paying Gas/Electric Bills: No Difficulty Paying for Meds: No Currently Unemployed: No Education: High School Diploma/GED Difficulty w/ Childcare or Family Care: No Living arrangements: shelter Additional living arrangements comments: Inderjit Soto Course Course Emergency Course: 7:00 PM Received signout from Dr. Staples, pending lab work, anticipate discharge back to facility with abx for UTI. 8:20 PM Lab work reviewed. CBC within normal limits. Electrolytes and renal function normal. Troponin negative. UA consistent with UTI, already received rocephin here. CT stable, CXR stable. The results of pertinent diagnostic studies and exam findings were discussed. The patient?s provisional diagnosis and plan of care were discussed with the patient and present family. The patient and/or present family expressed understanding of the diagnosis and plan. The nurse was instructed to provide written instructions and appropriate follow-up information. The patient understands their need and responsibility to obtain additional follow-up as instructed. The risks of medications administered and prescribed were discussed with the patient and family present. Vital Signs Vital signs: Vital Signs Temperature 97.2 F L 05/25/23 16:24 Pulse Rate 58 L 05/25/23 16:24 Respiratory Rate 17 05/25/23 16:24 Blood Pressure 167/89 H 05/25/23 16:24 Pulse Oximetry 99 05/25/23 16:24 Oxygen Delivery Room Air 05/25/23 16:24 Temperature 97.2 F L 05/25/23 16:24 Pulse Rate 63 05/25/23 20:15 Respiratory Rate 15 05/25/23 20:15 Blood Pressure 118/63 05/25/23 18:16 Pulse Oximetry 97 05/25/23 20:15 Oxygen Delivery Room Air 05/25/23 16:24 MDM - Neuro Symptoms/Deficit Lab Data 05/25/23 18:37 05/25/23 18:37 Labs: Lab Results 05/25/23 05/25/23 05/25/23 Range/Units 14:09 17:43 18:37 WBC 6.8 (4.5-10.0) K/mm3 RBC 4.35 (4.2-5.4) M/mm3 Hgb 13.0 (12.0-15.0) g/dL Hct 40.2 (37.0-47.0) % MCV 92.4 (80-100) fl MCH 29.9 (26-34) pg MCHC 32.3 (32-36) g/dl RDW 12.9 (11.5-14.5) % Plt Count 298 (150-375) k/mm3 MPV 10.3 (7.4-10.4) fl Immature Gran % (Auto) 0.3 (0-0.5) % Neut % (Auto) 53.9 (45.5-73.1) % Lymph % (Auto) 34.0 (18.3-44.2) % [place] % (Auto) 8.0 (2.6-8.5) % Eos % (Auto) 3.2 (0-4.4) % Baso % (Auto) 0.6 (0.2-1.2) % Lymph # (Auto) 2.31 (0.9-3.2) K/mm3 [place] # (Auto) 0.5
== END 2023-05-25 20:56 ==
PROVIDERS: Emergency Provider Emergency Medicine; PCP Internal Medicine
DX: N39.0 Urinary tract infection, site not specified (principal); G30.9 Alzheimer's disease, unspecified; F02.80 Dementia in other diseases classified elsewhere, unspecified severity, without behavioral disturbance, psychotic disturbance, mood disturbance, and anxiety; E78.5 Hyperlipidemia, unspecified; I10 Essential (primary) hypertension; I69.30 Unspecified sequelae of cerebral infarction; M19.90 Unspecified osteoarthritis, unspecified site; Z85.820 Personal history of malignant melanoma of skin; Z87.891 Personal history of nicotine dependence; R00.1 Bradycardia, unspecified; R94.31 Abnormal electrocardiogram [ECG] [EKG]
CPT/HCPCS: 36415; 70450; 71045; 80053; 81001; 82948; 84484; 85025; 85610; 85730; 93005; 96365; 99284; J0696

== ENCOUNTER 2023-06-11 19:40 | Outpatient (NON) | payer OTHER, SELFPAY ==
[2023-06-11 20:28] LABS: Amorphous Sediment Urine Present; Appearance Urine Turbid (Clear); Bacteria Urine 4+ /hpf; Bilirubin Urine Negative (Negative); Color Urine Yellow (Yellow); Glucose Urine UA Negative (Negative); Ketones Urine Negative (Negative); Leukocyte Esterase Ur 1+ LEU/UL (Negative); Need Manual Microscopic Reviewed; Nitrate Urine Positive (Negative); Protein Urine Negative (Negative); Specific Grav Ur 1.014 (1.001-1.035); Squamous Epithelial Cell Urine Moderate /hpf (Few); pH Urine 6.5 (5.0-9.0)
[2023-06-11 20:29] LABS: Add Urine Microscopic? YES
== END 2023-06-11 19:41 | disposition home or self-care (01) ==
LOC: ANHGOSHLAB 19:44
PROVIDERS: PCP Internal Medicine; Visit Provider Clinical Nurse Specialist
DX: N39.0 Urinary tract infection, site not specified (principal)
CPT/HCPCS: 81001; 87086; 87088

== ENCOUNTER 2023-07-28 09:48 | Emergency (ER) | payer OTHER, SELFPAY ==
[2023-07-28] VITALS (10 sets, daily range): BP systolic 111–154; BP diastolic 55–94; PULSE 55–78; RESP 12–16; TEMP 36.4–36.7; O2SAT 96–100
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
--- NOTE | ~2023-07-28 | CT_ITS ---
EXAMINATION: CT cervical spine wo con DATE: 07/28/2023 11:30 INDICATION: Fall. TECHNIQUE: Computed tomography (CT) of the cervical spine was performed without intravenous contrast. Automated exposure control and iterative reconstruction technique were employed. Exam dose: 436.65 mGy-cm total exam DLP. COMPARISON: None FINDINGS: There is straightening of the cervical spine which may be due to muscle spasm and/or positioning. C1 and C2 are normally aligned and the odontoid process is intact. No fracture or dislocation or lock ed facet or prevertebral soft tissue swelling is detected. There is slight anterolisthesis at C3-4 without widening of the apophyseal joints or interspinous spa ce to suggest posterior ligamentous disruption. There is slight anterolisthesis at C4-5. There is severe degenerative disc disease at C5-6 and C6-7. There is degenerative change at the apophyseal joints throughout the cervical spine and prominent unc overtebral joint spurring at the mid and lower cervical spine, most prominent at C5-6. IMPRESSION: Straightening of cervical spine; no fracture or dislocation, locked facet or prevertebra l soft tissue swelling Prominent cervical spondylosis Right ventriculoperitoneal shunt Reviewed, dictated and finalized at Location A. Reviewed, dictated and finalized at location A. IAL EFFECTS PERSON IMPRESSION: Straightening of cervical spine; no fracture or dislocation, sammy d facet or prevertebral soft tissue swelling Prominent cervical spondylosis Right ventriculoperitoneal shunt
--- NOTE | ~2023-07-28 | XR_ITS ---
XR pelvis 1-2V DATE: 07/28/2023 11:32 INDICATION: Fall. TECHNIQUE: AP pelvis COMPARISON: 10/09/2006 pelvis FINDINGS: There is extensive calcification of the distal abdominal aorta, common iliac, external abhijit c and femoral arteries. Osteopenia. Degenerative disc disease at L4-5 and L5-S1. Normal alignment at the pubic symphysis and sacroiliac joints. Hip joint spaces are symmetric and relatively preserved. No pelvic fracture or bone destruction is detected. Ventricular peritoneal shunt catheter is noted on the right. IMPRESSION: No pelvic fracture Degenerative disc disease at L4-5 and L5-S1 Reviewed, dictated and finalized at location A. 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
--- NOTE | ~2023-07-28 | CT_ITS ---
EXAMINATION: CT brain wo con DATE: 07/28/2023 11:30 INDICATION: Unwitnessed fall. Increased weakness. TECHNIQUE: Computed tomography (CT) of the head was performed without intravenous contrast. The mA wa s adjusted according to patient size. Iterative reconstruction technique was employed. Exam dose: 60 5.33 mGy-cm total exam DLP. COMPARISON: 05/25/2023 CT brain FINDINGS: Bilateral vertebral artery calcifications and prominent bilateral carotid siphon and suprac linoid internal carotid artery calcifications in addition to middle cerebral artery calcifications. There is considerable streak streak artifact from a Embolization coils in the left frontal area subjacent to the left frontal horn. There is extensive chronic encephalomalacia in the right frontal and temporal and parietal areas with in the distribution right middle cerebral artery consistent with chronic or old infarct within the ri ght middle cerebral artery territory. There is prominent diminished attenuation of the cerebral white matter, likely due to chronic small v essel ischemic changes. Moderate cerebellar and prominent central and cortical cerebral atrophy. Right ventriculostomy catheter, distal tip at midline in the region of caval septum pellucidum, uncha nged since 05/25/2023. No intracranial mass lesion or hemorrhage, midline shift or mass effect or subdural or epidural hemat trish is detected. No fracture or bone destruction of the cranial vault. The mastoid air cells and included paranasal sinuses are normally developed and aerated. IMPRESSION: No skull fracture or acute intracranial finding or significant change since 05/25/2023 is detected Reviewed, dictated and finalized at [facility]. Reviewed, dictated and finalized at location A. 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
--- NOTE | ~2023-07-28 | XR_ITS ---
Left Forearm AP and lateral views of the left forearm were performed. Clinical History: Injury Findings: No fracture or dislocation is seen. Osseous alignment in anatomic. Joint spaces are prese rved. Soft tissues are unremarkable. Impression: Unremarkable exam. Reviewed, dictated and finalized at location . 

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
--- NOTE | 2023-07-28 09:55 | ECG_ITS ---
Measurements Intervals [place] Rate: 58 P: 30 UT: 193 QRS: 13 QRSD: 82 T: 22 QT: 429 QTc: 422 Interpretive Statements SINUS BRADYCARDIA RSR' IN V1 OR V2, PROBABLY NORMAL VARIANT BORDERLINE ECG COMPARED TO ECG 05/25/2023 16:35:59 NO SIGNIFICANT CHANGES Electronically Signed On 07-28-2023 13:45:19 SMASH [employer]ECER by Elia Kelley D.O.
[2023-07-28 10:22] LABS: Basophils Absolute Auto 0.1 K/mm3 (0.0-0.1); Basophils Percent Auto 0.7 % (0.2-1.2); Eosinophils Absolute Auto 0.2 K/mm3 (0-0.3); Eosinophils Percent Auto 2.6 % (0-4.4); Hematocrit 42.6 % (37.0-47.0); Hemoglobin 13.7 g/dL (12.0-15.0); Immature Granulocyte Absolute 0.03 K/mm3 (0.00-0.031); Immature Granulocyte Percent A 0.4 % (0-0.5); Lymphocytes Absolute Auto 1.54 K/mm3 (0.9-3.2); Mean Corpuscular HGB Conc 32.2 g/dl (32-36); Mean Corpuscular Hemoglobin 30.2 pg (26-34); Mean Corpuscular Volume 93.8 fl (80-100); Mean Platelet Volume 10.9 fl (7.4-10.4); Monocytes Absolute Auto 0.4 K/mm3 (0.1-0.6); Neutrophils Absolute Auto 4.8 K/mm3 (1.3-6.7); Neutrophils Percent Auto 68.3 % (45.5-73.1); Platelet Count Result 296 k/mm3 (150-375); Red Blood Count 4.54 M/mm3 (4.2-5.4); Red Cell Distribution Width 13.2 % (11.5-14.5)
[2023-07-28 10:32] LABS: Alanine Aminotransferase 19 U/L (6-35); Albumin Level 4.6 g/dL (3.5-5.1); Alkaline Phosphatase 143 U/L (38-126); Anion Gap 9 mmol/L (8-16); Aspartate Amino Transferase 20 U/L (14-36); Bilirubin,Total 0.5 mg/dL (0.2-1.3); Blood Urea Nitrogen 15 mg/dL (7-17); Calcium 9.8 mg/dL (8.4-10.2); Carbon Dioxide 29 mmol/L (22-30); Chloride 100 mmol/L (98-107); Estimated CRCL calculation 79 ml/min; Estimated Glomerular Filt Rate > 60; Glucose 142 mg/dL (65-110); Sodium 138 mmol/L (137-145)
[2023-07-28 10:33] LABS: Appearance Urine Cloudy (Clear); Bacteria Urine 4+ /hpf; Bilirubin Urine Negative (Negative); Blood Urine Negative (Negative); Color Urine Yellow (Yellow); Glucose Urine UA Negative (Negative); Ketones Urine Negative (Negative); Leukocyte Esterase Ur Negative LEU/UL (Negative); Nitrate Urine Negative (Negative); Non Pathogenic Casts 0-2; Protein Urine Negative (Negative); RBC Urine 0-2 /hpf (0-2); Specific Grav Ur 1.007 (1.001-1.035); Squamous Epithelial Cell Urine Few /hpf (Few); Urobilinogen Urine 0.2 mg/dL (<2.0); WBC Urine 0-5 /hpf; pH Urine 7.5 (5.0-9.0)
[2023-07-28 10:35] LABS: INR 0.9; Prothrombin Time 12.3 Seconds (11.1-14.7)
[2023-07-28 10:36] LABS: Partial Thromboplastin Time 24.2 SECONDS (22.3-36.8)
--- NOTE | 2023-07-28 10:39 | ED.NEUROSD ---
HPI - Neuro Symptoms/Deficit General Chief Complaint: Neuro Symptoms/Deficit Stated Complaint: fall, L sided weakness, R side pain Time Seen by Provider: 07/28/23 10:17 Source: patient and EMS Mode of arrival: EMS Limitations: dementia History of Present Illness HPI Narrative: This is a 73 year old female that presents to the ER for a possible fall. Reportedly EMS was initially called for a fall. She had just eaten breakfast at her facility and they went back to check on her and she was on the floor. Patient initially was felt to be weak, but is now alert and back to her baseline. She believes she may have had a seizure. She does have history of seizures. No notable injuries. She does not report any pain to me at this time. Related Data Home Medications Medication Instructions Recorded Confirmed polyethylene glycol 3350 17 See Rx Instructions .Route .COMPLEX 09/01/19 06/11/23 gram/dose oral powder (Miralax) Allergies Allergy/AdvReac Type Severity Reaction Status Date / Time codeine Allergy Unknown Unknown Verified 06/11/23 11:01 Review of Systems Review of Systems: ROS unobtainable: Yes unobtainable due to medical condition PMFSH Past Medical History Medical History Aneurysm Shunt, 2001 Arthritis History of stroke with residual deficit HLD (hyperlipidemia) HTN (hypertension) Melanoma Seizures Stroke Family History Family History Father Family history of heart disease in male family member before age 55 Family history of cardiovascular disease Hypertension Mother Cerebrovascular accident Social History Social History Smoking status: Former smoker Tobacco type: cigarettes Alcohol intake: never Substance use: never Lack of Transportation: No Lack of Food: Never True Current Housing: I Have Housing Concerned About Future Housing: No Difficulty Paying Gas/Electric Bills: No Difficulty Paying for Meds: No Currently Unemployed: No Education: High School Diploma/GED Difficulty w/ Childcare or Family Care: No Living arrangements: long-term Additional living arrangements comments: Inderjit Soto Exam Narrative: GENERAL: Elderly, well-nourished, and in no acute distress. HEAD: Normocephalic, atraumatic. EYES: PERRLA and EOMI. ENT: Nares clear, no rhinorrhea or epistaxis. Mucous membranes moist. Oropharynx without tonsillar hypertrophy exudate or other lesions. Bilateral TMs pearly cooper non-bulging NECK: Supple. No adenopathy or masses. CHEST: Clear to auscultation. No respiratory distress. No wheezes rales or rhonchi HEART: Regular rate and rhythm. No murmur heard. Normal peripheral pulses. ABDOMEN: Soft, nontender, nondistended, normal active bowel sounds. EXTREMITIES: Normal range of motion. No edema or obvious deformity. Strength 4/5 LUE and LLE. 5/5 RUE and RLE SKIN: Warm, dry, no rash. NEURO: No focal deficits. Alert and oriented x2. CN II-XII grossly intact PSYCH: Normal mood and affect Course Course Emergency Course: Patient's daughter was updated on her workup Vital Signs Vital signs: Vital Signs Pulse Rate 65 07/28/23 09:48 Respiratory Rate 16 07/28/23 09:48 Blood Pressure 129/63 07/28/23 09:48 Pulse Oximetry 98 07/28/23 09:48 Oxygen Delivery Room Air 07/28/23 09:48 Temperature 97.8 F 07/28/23 16:30 Pulse Rate 58 L 07/28/23 16:30 Respiratory Rate 16 07/28/23 16:30 Blood Pressure 122/81 07/28/23 16:30 Pulse Oximetry 98 07/28/23 16:30 Oxygen Delivery Room Air 07/28/23 09:48 MDM - Neuro Symptoms/Deficit MDM Narrative Medical decision making narrative: Patient presents to the ER after EMS being called to facility for possible fall. Reportedly patient was just put in her room to eat breakfast and when they came back to check on her sh
[2023-07-28 10:41] LABS: Add Urine Microscopic? YES
[2023-07-28 10:44] LABS: Troponin I < 0.012 ng/mL (0.000-0.034)
[2023-07-28] MEDS: levETIRAcetam IV 750 MG in DEXTROSE 5% 100 ML 430 MG IVPB (11:34)
[2023-07-28 12:51] LABS: Influenza A QL RT-PCR Negative (Negative); Influenza B QL RT-PCR Negative (Negative); RSV RNA, RT-PCR Negative (Negative); SARS-CoV-2 RNA PCR Negative (Negative)
[2023-07-30 18:19] LABS: Levetiracetam Keppra 36.2 mcg/mL (6.0-46.0)
== END 2023-07-28 16:43 ==
PROVIDERS: Emergency Medicine; Emergency Provider Physician Assistant; PCP Internal Medicine
DX: J18.9 Pneumonia, unspecified organism (principal); R82.71 Bacteriuria; Z20.822 Contact with and (suspected) exposure to COVID-19; I10 Essential (primary) hypertension; I69.354 Hemiplegia and hemiparesis following cerebral infarction affecting left non-dominant side; G40.909 Epilepsy, unspecified, not intractable, without status epilepticus; E78.5 Hyperlipidemia, unspecified; M19.90 Unspecified osteoarthritis, unspecified site; Z98.2 Presence of cerebrospinal fluid drainage device; Z85.820 Personal history of malignant melanoma of skin; Z87.891 Personal history of nicotine dependence; R00.1 Bradycardia, unspecified; M85.88 Other specified disorders of bone density and structure, other site; I51.7 Cardiomegaly; I70.0 Atherosclerosis of aorta; M47.812 Spondylosis without myelopathy or radiculopathy, cervical region; M51.36 Other intervertebral disc degeneration, lumbar region; M53.3 Sacrococcygeal disorders, not elsewhere classified
CPT/HCPCS: 36415; 70450; 71045; 72125; 72170; 73060; 73090; 80053; 80177; 81001; 84484; 85025; 85610; 85730; 87086; 87088; 87637; 93005; 96365; 99284; J1953

== ENCOUNTER 2023-10-15 08:26 | Emergency (ER) | payer OTHER, SELFPAY ==
[2023-10-15] VITALS (29 sets, daily range): BP systolic 111–155; BP diastolic 62–79; PULSE 63–80; RESP 12–20; TEMP 36.6–36.8; O2SAT 95–100
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
--- NOTE | ~2023-10-15 | CT_ITS ---
EXAMINATION: CT brain wo con DATE: 10/15/2023 08:53 INDICATION: Seizures. TECHNIQUE: Computed tomography (CT) of the head was performed without intravenous contrast. The dose- length product was 605.33 mGy-cm. Automated exposure control and iterative reconstruction technique w ere employed. COMPARISON: CT dated 07/28/2023 FINDINGS: Chronic right frontal lobe infarction with encephalomalacia. Right frontal ventriculostomy catheter is present. There are scattered moderate periventricular and subcortical white matter change s, most likely related to small vessel ischemic disease (microangiopathy). There is intracranial athe rosclerosis. No ventriculomegaly or midline shift. Basilar cisterns are patent. Paranasal sinuses and mastoids are pneumatized. IMPRESSION: 1. No acute intracranial abnormality. No significant interval change. Reviewed, dictated and finalized at location B.
--- NOTE | 2023-10-15 08:41 | ECG_ITS ---
Measurements Intervals [place] Rate: 68 P: 15 WA: 193 QRS: 2 QRSD: 78 T: 28 QT: 378 QTc: 405 Interpretive Statements SINUS RHYTHM RSR' IN V1 OR V2, PROBABLY NORMAL VARIANT LOW QRS VOLTAGE IN PRECORDIAL LEADS CONSIDER INFERIOR INFARCT, AGE INDETERMINATE BASELINE ARTIFACT- I, II, III, AVR, AVL, AVF, V1-V2, V6 ABNORMAL ECG COMPARED TO ECG 07/28/2023 10:43:12 SINUS RHYTHM NOW PRESENT Electronically Signed On 10-15-2023 16:51:48 CDT by Elia Kelley D.O.
[2023-10-15 09:14] LABS: Basophils Absolute Auto 0.1 K/mm3 (0.0-0.1); Basophils Percent Auto 0.5 % (0.2-1.2); Eosinophils Absolute Auto 0.2 K/mm3 (0-0.3); Eosinophils Percent Auto 1.8 % (0-4.4); Hematocrit 40.7 % (37.0-47.0); Hemoglobin 12.8 g/dL (12.0-15.0); Immature Granulocyte Absolute 0.04 K/mm3 (0.00-0.031); Immature Granulocyte Percent A 0.4 % (0-0.5); Lymphocytes Absolute Auto 1.76 K/mm3 (0.9-3.2); Lymphocytes Percent Auto 18.6 % (18.3-44.2); Mean Corpuscular HGB Conc 31.4 g/dl (32-36); Mean Corpuscular Hemoglobin 30.3 pg (26-34); Mean Corpuscular Volume 96.2 fl (80-100); Mean Platelet Volume 11.2 fl (7.4-10.4); Monocytes Absolute Auto 0.6 K/mm3 (0.1-0.6); Monocytes Percent Auto 6.7 % (2.6-8.5); Neutrophils Absolute Auto 6.8 K/mm3 (1.3-6.7); Platelet Count Result 277 k/mm3 (150-375); Red Blood Count 4.23 M/mm3 (4.2-5.4); White Blood Count 9.5 K/mm3 (4.5-10.0)
--- NOTE | 2023-10-15 09:17 | ED.SEIZURE ---
HPI - Seizure General Chief Complaint: Seizure Stated Complaint: cva Time Seen by Provider: 10/15/23 08:36 History of Present Illness HPI Narrative: Pt had witnessed seizure at home today. After seizure patient seemed to be weak on left side and had some facial droop. Per the daughter this is the exact same thing that happened last time she had a seizure so they did not want her transferred to [facility] but wanted her evaluated here. Pt now seems back to baseline. Pt recently had Keppra dose adjusted per daughter. Seizure History: Yes Related Data Home Medications Medication Instructions Recorded Confirmed polyethylene glycol 3350 17 See Rx Instructions .Route .COMPLEX 09/01/19 08/16/23 gram/dose oral powder (Miralax) Allergies Allergy/AdvReac Type Severity Reaction Status Date / Time codeine Allergy Unknown Unknown Verified 09/19/23 10:00 Review of Systems Review of Systems: All systems reviewed & are unremarkable except as noted in HPI and below PMFSH Past Medical History Medical History Aneurysm Shunt, 2001 Arthritis History of stroke with residual deficit HLD (hyperlipidemia) HTN (hypertension) Melanoma Seizures Stroke Family History Family History Father Family history of heart disease in male family member before age 55 Family history of cardiovascular disease Hypertension Mother Cerebrovascular accident Social History Social History Smoking status: Former smoker Tobacco type: cigarettes Alcohol intake: never Substance use: never Lack of Transportation: No Lack of Food: Never True Current Housing: I Have Housing Concerned About Future Housing: No Difficulty Paying Gas/Electric Bills: No Difficulty Paying for Meds: No Currently Unemployed: No Education: High School Diploma/GED Difficulty w/ Childcare or Family Care: No Living arrangements: [facility] Additional living arrangements comments: Inderjit Soto Exam Const: General: healthy appearing and no acute distress Nutritional Appearance: well nourished Orientation/consciousness: patient oriented x3 Limitations: no limitations HENMT: Head: normal to inspection Eyes: Conjunctivae: conjunctivae normal Pupils: Equal, round and reactive pupils present EOM: EOMs intact bilaterally Neck: Neck: normal visual inspection Resp: Effort & Inspection: normal respiratory effort Auscultation: clear to auscultation bilaterally Cardio: Rate: regular rate Rhythm: regular rhythm GI: GI Palp: Yes Soft to palpation Auscultation: normal bowel sounds Skin: General skin exam: normal color Neuro: General: patient oriented x3, moves all extremities, no focal motor deficits (weak equally in all 4 extremities 4+/5) and CN's II-XI intact bilaterally Cranial nerves: Yes Nystagmus not present Speech: normal speech Extrem: General: normal to inspection and no clubbing, cyanosis or edema Psych: Appearance: grossly normal Mental Status: mental status grossly normal Affect: normal affect Attitude: cooperative Course Vital Signs Vital signs: Vital Signs Temperature 97.9 F 10/15/23 08:28 Pulse Rate 72 10/15/23 08:28 Respiratory Rate 18 10/15/23 08:28 Blood Pressure 127/67 10/15/23 08:28 Pulse Oximetry 100 10/15/23 08:28 Oxygen Delivery Room Air 10/15/23 08:28 Temperature 98.3 F 10/15/23 10:58 Pulse Rate 64 10/15/23 11:16 Respiratory Rate 18 10/15/23 11:16 Blood Pressure 155/72 H 10/15/23 11:16 Pulse Oximetry 98 10/15/23 11:16 Oxygen Delivery Room Air 10/15/23 08:42 MDM - Seizure MDM Narrative Medical decision making narrative: seems like seizure with post ictal spell. daughter said she had exact same symptoms after seizure last time. could still be TIA or stroke but less likely. Will mamta
[2023-10-15 09:27] LABS: Alanine Aminotransferase 18 U/L (6-35); Albumin Level 4.3 g/dL (3.5-5.1); Alkaline Phosphatase 131 U/L (38-126); Anion Gap 4 mmol/L (8-16); Aspartate Amino Transferase 18 U/L (14-36); Bilirubin,Total 0.4 mg/dL (0.2-1.3); Blood Urea Nitrogen 16 mg/dL (7-17); Calcium 9.7 mg/dL (8.4-10.2); Carbon Dioxide 28 mmol/L (22-30); Chloride 107 mmol/L (98-107); Estimated CRCL calculation 72 ml/min; Estimated Glomerular Filt Rate > 60; Glucose 118 mg/dL (65-110); Phenytoin Dilantin 6 ug/mL (10-20); Potassium 3.9 mmol/L (3.4-5.0); Sodium 139 mmol/L (137-145)
[2023-10-15 09:31] LABS: INR 0.9; Partial Thromboplastin Time 23.9 Seconds (22.3-36.8); Prothrombin Time 12.9 Seconds (11.1-14.7)
[2023-10-15 09:36] LABS: Add Urine Microscopic? YES; Appearance Urine Cloudy (Clear); Blood Urine Negative (Negative); Color Urine Yellow (Yellow); Glucose Urine UA Negative (Negative); Ketones Urine Trace mg/dL (Negative); Nitrate Urine Negative (Negative); Protein Urine 1+ mg/dL (Negative); pH Urine 7.5 (5.0-9.0)
[2023-10-15 09:36] LABS: Troponin I < 0.012 ng/mL (0.000-0.034)
[2023-10-15 09:37] LABS: Bilirubin Urine Negative (Negative); Leukocyte Esterase Ur 1+ LEU/UL (Negative); Urobilinogen Urine 0.2 mg/dL (<2.0)
[2023-10-15 09:40] LABS: Bacteria Urine 4+ /hpf; Need Manual Microscopic Reviewed; Squamous Epithelial Cell Urine Moderate /hpf (Few); WBC Urine 0-5 /hpf (0-3)
[2023-10-17 19:00] LABS: Levetiracetam Keppra 22.4 mcg/mL (6.0-46.0)
== END 2023-10-15 11:38 ==
PROVIDERS: Emergency Provider Emergency Medicine; PCP Internal Medicine
DX: G40.909 Epilepsy, unspecified, not intractable, without status epilepticus (principal); I10 Essential (primary) hypertension; E78.5 Hyperlipidemia, unspecified; M19.90 Unspecified osteoarthritis, unspecified site; Z85.820 Personal history of malignant melanoma of skin; Z86.73 Personal history of transient ischemic attack (TIA), and cerebral infarction without residual deficits; Z87.891 Personal history of nicotine dependence; R94.31 Abnormal electrocardiogram [ECG] [EKG]
CPT/HCPCS: 36415; 70450; 71045; 80053; 80177; 80185; 81001; 84484; 85025; 85610; 85730; 87086; 87088; 93005; 99284

== ENCOUNTER 2023-12-13 12:05 | Emergency (ER) | payer OTHER, SELFPAY ==
--- NOTE | ~2023-12-13 | XR_ITS ---
EXAMINATION: XR chest 1V portable DATE: 12/13/2023 15:56 INDICATION: Altered mental status. TECHNIQUE: A single frontal view of the chest was obtained. COMPARISON: Chest single view 10/15/2023 FINDINGS: There is no pneumonia, pleural effusion, or pneumothorax. The heart size is normal. Shrapne l overlies left chest, which is chronic. There is an old healed left rib fracture. There is a ventric uloperitoneal shunt. IMPRESSION: 1. No acute cardiopulmonary disease. Reviewed, dictated and finalized at location A.
[2023-12-13 12:13] VITALS: BP 123/65; PULSE 61; RESP 14; TEMP 36.6; O2SAT 98
[2023-12-13 12:31] LABS: Basophils Percent Auto 0.5 % (0.2-1.2); Eosinophils Absolute Auto 0.3 K/mm3 (0-0.3); Eosinophils Percent Auto 3.2 % (0-4.4); Hematocrit 38.1 % (37.0-47.0); Hemoglobin 12.5 g/dL (12.0-15.0); Immature Granulocyte Absolute 0.02 K/mm3 (0.00-0.031); Immature Granulocyte Percent A 0.2 % (0-0.5); Lymphocytes Absolute Auto 1.89 K/mm3 (0.9-3.2); Lymphocytes Percent Auto 23.4 % (18.3-44.2); Mean Corpuscular HGB Conc 32.8 g/dl (32-36); Mean Corpuscular Hemoglobin 30.8 pg (26-34); Mean Corpuscular Volume 93.8 fl (80-100); Mean Platelet Volume 10.6 fl (7.4-10.4); Monocytes Absolute Auto 0.7 K/mm3 (0.1-0.6); Neutrophils Absolute Auto 5.2 K/mm3 (1.3-6.7); Neutrophils Percent Auto 63.7 % (45.5-73.1); Platelet Count Result 266 k/mm3 (150-375); Red Blood Count 4.06 M/mm3 (4.2-5.4); Red Cell Distribution Width 12.8 % (11.5-14.5); White Blood Count 8.1 K/mm3 (4.5-10.0)
[2023-12-13 12:41] LABS: Alanine Aminotransferase 16 U/L (6-35); Albumin Level 4.3 g/dL (3.5-5.1); Alkaline Phosphatase 123 U/L (38-126); Anion Gap 4 mmol/L (4-12); Aspartate Amino Transferase 18 U/L (14-36); Bilirubin,Total 0.4 mg/dL (0.2-1.3); Blood Urea Nitrogen 15 mg/dL (7-17); Calcium 9.5 mg/dL (8.4-10.2); Carbon Dioxide 29 mmol/L (22-30); Chloride 103 mmol/L (98-107); Estimated CRCL calculation 76 ml/min; Estimated Glomerular Filt Rate > 60; Glucose 98 mg/dL (65-110); Lipase 83 U/L (23-300); Potassium 3.9 mmol/L (3.4-5.0); Sodium 136 mmol/L (137-145)
[2023-12-13 14:45] VITALS: BP 121/60; PULSE 60; RESP 18; O2SAT 98
[2023-12-13 14:48] LABS: Appearance Urine Clear (Clear); Bacteria Urine 4+ /hpf; Bilirubin Urine Negative (Negative); Blood Urine Negative (Negative); Color Urine Yellow (Yellow); Glucose Urine UA Negative (Negative); Ketones Urine Negative (Negative); Leukocyte Esterase Ur Negative LEU/UL (Negative); Nitrate Urine Positive (Negative); Non Pathogenic Casts 0-2; Protein Urine Negative (Negative); RBC Urine 0-2 /hpf (0-2); Specific Grav Ur 1.008 (1.001-1.035); Squamous Epithelial Cell Urine None Seen /hpf (Few); Urobilinogen Urine 0.2 mg/dL (<2.0); WBC Urine 0-5 /hpf (0-3); pH Urine 7.5 (5.0-9.0)
[2023-12-13 15:11] LABS: Add Urine Microscopic? YES
--- NOTE | 2023-12-13 15:43 | ED.NAVMDI ---
HPI - Nausea/Vomiting/Diarrhea General Chief complaint: Nausea/Vomiting/Diarrhea Stated complaint: urinary incontinence, diarrhea Time Seen by Provider: 12/13/23 14:19 Source: patient Limitations: physical limitation and dementia History of Present Illness HPI Narrative: Patient presents with urinary incontinence and diarrhea. Per report she has had decreased orientation. Resides at a SNF. Denies abdominal pain or fever. Related Data Home Medications Medication Instructions Recorded Confirmed polyethylene glycol 3350 17 See Rx Instructions .Route .COMPLEX 09/01/19 11/21/23 gram/dose oral powder (Miralax) Allergies Allergy/AdvReac Type Severity Reaction Status Date / Time codeine Allergy Unknown Unknown Verified 11/21/23 11:09 [facility] Past Medical History Medical History Anemia Aneurysm Shunt, 2001 Arthritis History of stroke with residual deficit HLD (hyperlipidemia) HTN (hypertension) Melanoma Other cerebrovascular disease Other sequelae following nontraumatic subarachnoid hemorrhage Seizures Stroke Unspecified convulsions Vascular dementia, unspecified severity, without behavioral disturbance, psychotic disturbance, mood disturbance, and anxiety Family History Family History Father Family history of heart disease in male family member before age 55 Family history of cardiovascular disease Hypertension Mother Cerebrovascular accident Social History Social History Smoking status: Former smoker Tobacco type: cigarettes Alcohol intake: never Substance use: never Lack of Transportation: No Lack of Food: Never True Current Housing: I Have Housing Concerned About Future Housing: No Difficulty Paying Gas/Electric Bills: No Difficulty Paying for Meds: No Currently Unemployed: No Education: High School Diploma/GED Difficulty w/ Childcare or Family Care: No Living arrangements: assisted Additional living arrangements comments: Inderjit Soto Exam Narrative: GENERAL: Well-appearing, well-nourished, and in no acute distress. HEAD: Normocephalic, atraumatic. EYES: Non injected, non icteric ENT: Nares clear, no rhinorrhea or epistaxis. Poor dentition. NECK: Supple. CHEST: Speaking in full sentences. No respiratory distress. HEART: Regular rate and rhythm. . ABDOMEN: Soft, nondistended. No tenderness to palpation. No rigidity/guarding. Not periotoneal. EXTREMITIES: Normal range of motion. SKIN: Warm, dry, no rash. NEURO: No focal deficits. Alert. Not oriented to . Location unknown initially but when offered options ([facility]), she chooses correctly. PSYCH: Normal mood and affect. Course Vital Signs Vital signs: Vital Signs Temperature 97.9 F 12/13/23 12:13 Pulse Rate 61 12/13/23 12:13 Respiratory Rate 14 12/13/23 12:13 Blood Pressure 123/65 12/13/23 12:13 Pulse Oximetry 98 12/13/23 12:13 Oxygen Delivery Room Air 12/13/23 12:13 Temperature 97.9 F 12/13/23 12:13 Pulse Rate 73 12/13/23 17:13 Respiratory Rate 16 12/13/23 17:13 Blood Pressure 110/74 12/13/23 17:13 Pulse Oximetry 98 12/13/23 17:13 Oxygen Delivery Room Air 12/13/23 12:13 MDM - Nausea/Vomiting/Diarrhea MDM Narrative Medical decision making narrative: Patient presents with report of urinary incontinence, diarrhea, and decreased orientation. In the ED she is afebrile with VS within normal limits. The differential for acute (<14d) diarrhea includes infectious etiologies (viral, preformed toxins, toxins formed after colonization, invasive bacteria, and parasites), medications, inflammatory causes (IBD, radiation enteritis, ischemic colitis, diverticulitis), malabsorption, secretory causes, or motility disorders. Urinalysis with bacteria nitrates as
[2023-12-13 16:07] LABS: Magnesium 2.1 mg/dL (1.6-2.3)
[2023-12-13 16:37] VITALS: BP 133/64; PULSE 63; RESP 14; O2SAT 100
[2023-12-13] MEDS: CEPHALEXIN 500 MG CAPSULE PO (16:37)
[2023-12-13 17:13] VITALS: BP 110/74; PULSE 73; RESP 16; O2SAT 98
== END 2023-12-13 17:40 ==
PROVIDERS: Physician Assistant; Emergency Provider Student in an Organized Health Care Education/Training Program; PCP Internal Medicine
DX: N39.0 Urinary tract infection, site not specified (principal); R19.7 Diarrhea, unspecified; F01.50 Vascular dementia, unspecified severity, without behavioral disturbance, psychotic disturbance, mood disturbance, and anxiety; I69.098 Other sequelae following nontraumatic subarachnoid hemorrhage; I10 Essential (primary) hypertension; E78.5 Hyperlipidemia, unspecified; M19.90 Unspecified osteoarthritis, unspecified site; Z85.820 Personal history of malignant melanoma of skin; Z87.891 Personal history of nicotine dependence; Z86.2 Personal history of diseases of the blood and blood-forming organs and certain disorders involving the immune mechanism
CPT/HCPCS: 36415; 71045; 80053; 81001; 83690; 83735; 85025; 99283; A9270

== ENCOUNTER 2023-12-17 11:27 | Emergency (ER) | payer OTHER, SELFPAY ==
[2023-12-17] VITALS (8 sets, daily range): BP systolic 106–134; BP diastolic 53–104; PULSE 54–69; RESP 11–16; TEMP 36.6–36.9; O2SAT 96–100
--- NOTE | ~2023-12-17 | CT_ITS ---
EXAMINATION: CT abdomen pelvis w con DATE: 12/17/2023 15:12 INDICATION: Diarrhea TECHNIQUE: Computed tomography (CT) of the abdomen and pelvis was performed with 100 cc Omnipaque 350 intravenous contrast. The dose-length product was 752.06 mGy-cm. Automated exposure control and iter ative reconstruction technique were employed. COMPARISON: CT dated 03/25/2021. FINDINGS: Cardiomegaly. Dependent atelectasis of the lung bases. No significant pleural or pericardia l effusion. There is a right-sided ventriculoperitoneal shunt. The inferior extent of the shunt exten ds into the pelvis. There is abnormal mucosal thickening of the transverse colon, descending colon, s igmoid colon and rectum, consistent with colitis, most likely infectious or inflammatory. Status post cholecystectomy. Small hypodensity along the superior lateral margin of the spleen, not well charact erize. There is atherosclerosis of the aorta without evidence for aneurysm. Colonic diverticulosis wi thout evidence for diverticulitis. Bladder is unremarkable. No abnormal pelvic masses or fluid collec tions. No lymphadenopathy. There is a supraumbilical ventral hernia containing fat. There are multipl e wedge compression deformities of the thoracic and lumbar spine, chronic. No focal lytic or blastic lesions. There is scoliosis. IMPRESSION: 1. Abnormal mucosal thickening of a long segment of colon extending from the transverse colon to the rectum, consistent with colitis, most likely infectious or inflammatory. Reviewed, dictated and finalized at location A. IMPRESSION: 1. Abnormal mucosal thickening of a long segment of colon extending from the tr ansverse colon to the rectum, consistent with colitis, most likely infectious o r inflammatory.
--- NOTE | 2023-12-17 11:38 | ECG_ITS ---
SEE SCANNED COPY FOR CONFIRMED REPORT MTDD
[2023-12-17 12:02] LABS: Basophils Percent Auto 0.3 % (0.2-1.2); Eosinophils Absolute Auto 0.3 K/mm3 (0-0.3); Eosinophils Percent Auto 3.1 % (0-4.4); Hematocrit 39.3 % (37.0-47.0); Immature Granulocyte Absolute 0.03 K/mm3 (0.00-0.031); Immature Granulocyte Percent A 0.3 % (0-0.5); Lymphocytes Absolute Auto 2.14 K/mm3 (0.9-3.2); Lymphocytes Percent Auto 24.4 % (18.3-44.2); Mean Corpuscular HGB Conc 33.1 g/dl (32-36); Mean Corpuscular Volume 93.6 fl (80-100); Mean Platelet Volume 10.6 fl (7.4-10.4); Monocytes Absolute Auto 0.8 K/mm3 (0.1-0.6); Monocytes Percent Auto 8.8 % (2.6-8.5); Neutrophils Absolute Auto 5.5 K/mm3 (1.3-6.7); Neutrophils Percent Auto 63.1 % (45.5-73.1); Platelet Count Result 324 k/mm3 (150-375); Red Cell Distribution Width 13.1 % (11.5-14.5); White Blood Count 8.8 K/mm3 (4.5-10.0)
[2023-12-17 12:16] LABS: Alanine Aminotransferase 19 U/L (6-35); Albumin Level 4.5 g/dL (3.5-5.1); Alkaline Phosphatase 125 U/L (38-126); Anion Gap 7 mmol/L (4-12); Aspartate Amino Transferase 20 U/L (14-36); Bilirubin,Total 0.4 mg/dL (0.2-1.3); Blood Urea Nitrogen 15 mg/dL (7-17); Calcium 9.8 mg/dL (8.4-10.2); Carbon Dioxide 26 mmol/L (22-30); Chloride 106 mmol/L (98-107); Estimated CRCL calculation 79 ml/min; Estimated Glomerular Filt Rate > 60; Glucose 94 mg/dL (65-110); Potassium 3.7 mmol/L (3.4-5.0); Sodium 139 mmol/L (137-145)
[2023-12-17 12:18] LABS: INR 1.1; Prothrombin Time 14.3 Seconds (11.1-14.7)
[2023-12-17 12:39] LABS: Appearance Urine Clear (Clear); Bilirubin Urine Negative (Negative); Blood Urine Negative (Negative); Color Urine Yellow (Yellow); Glucose Urine UA Negative (Negative); Ketones Urine Negative (Negative); Leukocyte Esterase Ur Negative LEU/UL (Negative); Nitrate Urine Negative (Negative); Protein Urine Negative (Negative); Specific Grav Ur 1.012 (1.001-1.035); Urobilinogen Urine 0.2 mg/dL (<2.0); pH Urine 5.5 (5.0-9.0)
[2023-12-17 12:59] LABS: Partial Thromboplastin Time < 20.0 Seconds (22.3-36.8)
[2023-12-17 13:17] LABS: Add Urine Microscopic? NO
--- NOTE | 2023-12-17 14:28 | ED.AMS ---
HPI - Altered Mental Status General Chief Complaint: Altered Mental Status Stated Complaint: confusion/diarrhea Time Seen by Provider: 12/17/23 13:34 History of Present Illness HPI narrative: Patient is a 73-year-old female [facility] with history of hyperlipidemia, vascular dementia, hypertension, CVA, here with diarrhea and concern for possible C diff. Patient notes that she has been having diarrhea over the last few days. She was seen here approximately 2 days ago diagnosed with the UTI and started on Keflex. She has had diarrhea since that time. Patient denies any pain or symptoms. She denies feeling any more confused than she normally is. Related Data Home Medications Medication Instructions Recorded Confirmed polyethylene glycol 3350 17 See Rx Instructions .Route .COMPLEX 09/01/19 11/21/23 gram/dose oral powder (Miralax) Allergies Allergy/AdvReac Type Severity Reaction Status Date / Time codeine Allergy Unknown Unknown Verified 11/21/23 11:09 Review of Systems Review of Systems: All systems reviewed & are unremarkable except as noted in HPI and below PMFSH Past Medical History Medical History Anemia Aneurysm Shunt, 2002 Arthritis History of stroke with residual deficit HLD (hyperlipidemia) HTN (hypertension) Melanoma Other cerebrovascular disease Other sequelae following nontraumatic subarachnoid hemorrhage Seizures Stroke Unspecified convulsions Vascular dementia, unspecified severity, without behavioral disturbance, psychotic disturbance, mood disturbance, and anxiety Family History Family History Father Family history of heart disease in male family member before age 55 Family history of cardiovascular disease Hypertension Mother Cerebrovascular accident Social History Social History Smoking status: Former smoker Tobacco type: cigarettes Alcohol intake: never Substance use: never Lack of Transportation: No Lack of Food: Never True Current Housing: I Have Housing Concerned About Future Housing: No Difficulty Paying Gas/Electric Bills: No Difficulty Paying for Meds: No Currently Unemployed: No Education: High School Diploma/GED Difficulty w/ Childcare or Family Care: No Living arrangements: prison Additional living arrangements comments: Inderjit Soto Exam Narrative: GENERAL: Well-appearing, well-nourished, and in no acute distress. HEAD: Normocephalic, atraumatic. EYES: PERRLA and EOMI. ENT: Nares clear. Mucous membranes moist. NECK: Supple. CHEST: Clear to auscultation. No respiratory distress. HEART: Regular rate and rhythm. Normal peripheral pulses. ABDOMEN: Soft, nontender, nondistended. EXTREMITIES: Normal range of motion. No edema. SKIN: Warm, dry, no rash. NEURO: No focal deficits. Alert and oriented x2. PSYCH: Normal mood and affect. Course Course Emergency Course: Chart review performed. Patient here from [facility] via EMS with AMS and diarrhea. History of dementia. Recent keflex for UTI. [facility] staff concerned for C.Diff. Triage vitals grossly normal. Triage workup reviewed. CBC unremarkable. CMP grossly normal with normal renal function. UA negative for UTI. She was seen here on 12/13/23 with urinary incontinence and diarrhea. She appears to have had a UA performed on 12/13/23 which was nitrite positive with 4+ bacteria, started on keflex. Patient seen evaluated, nontoxic appearing. Alert, oriented to her baseline per the chart. Concern for diarrhea after antibiotic exposure, will do CT abdomen pelvis to evaluate possible colitis. Lactic, abdominal lab work and stool sample ordered. Patient agreeable to workup and plan. CT shows abnormal mucosal thickening of the long segment of colon extending from transverse to
[2023-12-17 14:56] LABS: Troponin I < 0.012 ng/mL (0.000-0.034)
--- NOTE | 2023-12-17 19:06 | PC.NURSE ---
This RN spoke with Mónica at [facility] and informed her that pt would be returning to facility via EMS
--- NOTE | 2023-12-17 19:13 | PC.NURSE ---
Report given to Haroon SAMANIEGO, all questions answered
== END 2023-12-17 19:48 ==
PROVIDERS: Emergency Medicine; Emergency Provider Student in an Organized Health Care Education/Training Program; PCP Internal Medicine
DX: K52.9 Noninfective gastroenteritis and colitis, unspecified (principal); N39.0 Urinary tract infection, site not specified; F01.50 Vascular dementia, unspecified severity, without behavioral disturbance, psychotic disturbance, mood disturbance, and anxiety; E78.5 Hyperlipidemia, unspecified; I10 Essential (primary) hypertension; I69.998 Other sequelae following unspecified cerebrovascular disease; M19.90 Unspecified osteoarthritis, unspecified site; Z87.891 Personal history of nicotine dependence; Z85.820 Personal history of malignant melanoma of skin; R94.31 Abnormal electrocardiogram [ECG] [EKG]; Z79.02 Long term (current) use of antithrombotics/antiplatelets; Z79.899 Other long term (current) drug therapy
CPT/HCPCS: 36415; 74177; 80053; 81003; 84484; 85025; 85610; 85730; 93005; 99284; Q9967

== ENCOUNTER 2024-03-02 11:17 | Emergency (ER) | payer OTHER, SELFPAY ==
[2024-03-02] VITALS (8 sets, daily range): BP systolic 98–134; BP diastolic 50–91; PULSE 64–83; RESP 12–19; TEMP 36.4–36.7; O2SAT 98–100
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
--- NOTE | ~2024-03-02 | CT_ITS ---
EXAMINATION: CT brain wo con DATE: 03/02/2024 15:03 INDICATION: Seizure. TECHNIQUE: Computed tomography (CT) of the head was performed without intravenous contrast. The mA wa s adjusted according to patient size. Iterative reconstruction technique was employed. The dose-lengt h product was 605.33 mGy-cm. COMPARISON: Head CT 10/15/2023 FINDINGS: There is an old infarct involving right frontal lobe, right insula, and right basal ganglia . There are old infarcts in left frontal lobe. There is an old infarct in the left basal ganglia. The re are scattered areas of low attenuation in the cerebral white matter. There is no intracranial hemo rrhage, acute infarction, or abnormal intracranial mass lesion. The ventricles are normal in size. Th ere is an embolization coil mass in left frontal lobe. There is a right-sided ventriculoperitoneal sh unt with tip at the septum callosum. The paranasal sinuses are clear. The mastoid air cells are nagi l. The orbits are normal. IMPRESSION: 1. Old infarcts involving the frontal lobes, right insula, and bilateral basal ganglia. 2. Extensive nonspecific cerebral white matter disease, which likely represents chronic small vessel ischemic disease. 3. Normal sized ventricles. Ventriculoperitoneal shunt in expected position. Reviewed, dictated and finalized at location E.
--- NOTE | 2024-03-02 14:33 | ED.SEIZURE ---
HPI - Seizure General Chief Complaint: Seizure Stated Complaint: seizure Time Seen by Provider: 03/02/24 13:14 History of Present Illness HPI Narrative: This is a 74-year-old female with a past medical history significant for epilepsy, vascular dementia and prior stroke with residual left-sided deficits. Today she presents from her [facility] facility for concerns of multiple seizures. Patient has a known history of seizure disorder and does take Keppra and phenytoin on review of the EMR. Patient presently is alert oriented to just her name. She does not know the year, where she is, the circumstances around her visit today. Patient states that her son brought her in and she lives at home unassisted but this is not true and she lives at [facility] in acute care facility. Patient denies any injuries, falls, trauma and does not have any acute complaints at this visit. She denies any headache, vision changes, cough, fever, chills, chest pain, shortness a breath. No fever or in other infectious symptoms. She states she has not had this seizure for quite some time however correction report was that she had multiple seizures today. She is presently at her baseline mentation on review of the EMR. Normally is alert to self. Does not appear postictal on my initial assessment. Seizure History: Yes Related Data Home Medications Medication Instructions Recorded Confirmed polyethylene glycol 3350 17 See Rx Instructions .Route .COMPLEX 09/01/19 01/04/24 gram/dose oral powder (Miralax) Allergies Allergy/AdvReac Type Severity Reaction Status Date / Time codeine Allergy Unknown Unknown Verified 11/21/23 11:09 Review of Systems Review of Systems: As reviewed above in the HPI [facility] Past Medical History Medical History Anemia Aneurysm Shunt, 2002 Arthritis History of stroke with residual deficit HLD (hyperlipidemia) HTN (hypertension) Melanoma Other cerebrovascular disease Other sequelae following nontraumatic subarachnoid hemorrhage Seizures Stroke Unspecified convulsions Vascular dementia, unspecified severity, without behavioral disturbance, psychotic disturbance, mood disturbance, and anxiety Family History Family History Father Family history of heart disease in male family member before age 55 Family history of cardiovascular disease Hypertension Mother Cerebrovascular accident Social History Social History Smoking status: Former smoker Tobacco type: cigarettes Alcohol intake: never Substance use: never Do You Feel Safe in your Home?: Yes Lack of Transportation: No Lack of Food: Never True Current Housing: I Have Housing Concerned About Future Housing: No Difficulty Paying Gas/Electric Bills: No Difficulty Paying for Meds: No Currently Unemployed: No Education: High School Diploma/GED Difficulty w/ Childcare or Family Care: No Living arrangements: correction Additional living arrangements comments: Inderjit Soto Exam Narrative: GENERAL: Chronically ill-appearing, not in any acute distress HEAD: [Normocephalic, atraumatic.] EYES: [PERRLA and EOMI.] ENT: Nares clear, no rhinorrhea or epistaxis. Mucous membranes moist. NECK: Supple. CHEST: [Clear to auscultation. No respiratory distress.] HEART: [Regular rate and rhythm]. No murmur heard. [Normal peripheral pulses.] ABDOMEN: [Soft, nondistended], [nontender], [No rigidity or guarding] EXTREMITIES: Normal range of motion. [No edema.] SKIN: Warm, dry, no rash. NEURO: Left-sided weakness in the upper and lower extremities which is baseline per previous documentation. No drift in the arms or legs. No apparent ataxia. Alert to her self as well as intermittently location, baseline mentation per review. PSYCH: [Normal
--- NOTE | 2024-03-02 14:35 | ECG_ITS ---
Test Date: 2024-03-02 15:24:17 Measurements Intervals [place] Rate: 63 P: -1 ND: 193 QRS: 19 QRSD: 83 T: 52 QT: 414 QTc: 424 Interpretive Statements SINUS RHYTHM POSSIBLE RIGHT VENTRICULAR CONDUCTION DELAY [RSR (QR) IN V1/V2] No previous ECG available for comparison Electronically Signed On 03-05-2024 09:20:17 CDT by Kimberly Darby M.D.
[2024-03-02 14:50] LABS: Basophils Absolute Auto 0.1 K/mm3 (0.0-0.1); Basophils Percent Auto 0.6 % (0.2-1.2); Eosinophils Absolute Auto 0.1 K/mm3 (0-0.3); Eosinophils Percent Auto 1.6 % (0-4.4); Hematocrit 40.5 % (37.0-47.0); Hemoglobin 13.8 g/dL (12.0-15.0); Immature Granulocyte Absolute 0.04 K/mm3 (0.00-0.031); Immature Granulocyte Percent A 0.5 % (0-0.5); Lymphocytes Absolute Auto 1.39 K/mm3 (0.9-3.2); Lymphocytes Percent Auto 16.1 % (18.3-44.2); Mean Corpuscular HGB Conc 34.1 g/dl (32-36); Mean Corpuscular Hemoglobin 31.7 pg (26-34); Mean Corpuscular Volume 93.1 fl (80-100); Mean Platelet Volume 10.5 fl (7.4-10.4); Monocytes Absolute Auto 0.6 K/mm3 (0.1-0.6); Monocytes Percent Auto 6.5 % (2.6-8.5); Neutrophils Absolute Auto 6.5 K/mm3 (1.3-6.7); Neutrophils Percent Auto 74.7 % (45.5-73.1); Platelet Count Result 382 k/mm3 (150-375); Red Blood Count 4.35 M/mm3 (4.2-5.4); Red Cell Distribution Width 12.8 % (11.5-14.5); White Blood Count 8.6 K/mm3 (4.5-10.0)
[2024-03-02 15:00] LABS: Acetaminophen < 10 ug/mL (10-30); Alanine Aminotransferase 17 U/L (6-35); Albumin Level 4.5 g/dL (3.5-5.1); Alkaline Phosphatase 159 U/L (38-126); Anion Gap 11 mmol/L (4-12); Aspartate Amino Transferase 22 U/L (14-36); Bilirubin,Total 0.5 mg/dL (0.2-1.3); Blood Urea Nitrogen 11 mg/dL (7-17); Calcium 9.9 mg/dL (8.4-10.2); Carbon Dioxide 30 mmol/L (22-30); Chloride 97 mmol/L (98-107); Creatine Kinase 49 U/L (30-135); Estimated CRCL calculation 63 ml/min; Estimated Glomerular Filt Rate > 60; Ethanol < 10 mg/dL (<10); Glucose 149 mg/dL (65-110); INR 0.9; Prothrombin Time 12.6 Seconds (11.1-14.7); Salicylate < 1.0 mg/dL (2-20); Sodium 138 mmol/L (137-145)
[2024-03-02] MEDS: levETIRAcetam 1500MG/NACL100ML 1,500 MG/100 ML BAG 400 MG IVPB (15:16)
[2024-03-02] MEDS: SODIUM CHLORIDE 0.9% IV 1,000 ML 999 ML IV CONT (15:16)
[2024-03-02 15:24] LABS: Glucose Point of Care 98 mg/dl (65-105)
[2024-03-02 15:43] LABS: Add Urine Microscopic? YES; Appearance Urine Clear (Clear); Bacteria Urine 4+ /hpf; Bilirubin Urine Negative (Negative); Blood Urine Negative (Negative); Color Urine Yellow (Yellow); Glucose Urine UA Negative (Negative); Ketones Urine Negative (Negative); Leukocyte Esterase Ur Negative LEU/UL (Negative); Nitrate Urine Positive (Negative); Non Pathogenic Casts 0-2; Protein Urine Negative (Negative); RBC Urine 0-2 /hpf (0-2); Specific Grav Ur 1.007 (1.001-1.035); Squamous Epithelial Cell Urine None Seen /hpf (Few); Urobilinogen Urine 0.2 mg/dL (<2.0); WBC Urine 0-5 /hpf (0-3); pH Urine 7.5 (5.0-9.0)
[2024-03-05 13:08] LABS: Phenytoin Dilantin Free 0.6 mg/L (1.0-2.0)
== END 2024-03-02 18:35 ==
PROVIDERS: Emergency Provider Student in an Organized Health Care Education/Training Program; PCP Internal Medicine
DX: G40.909 Epilepsy, unspecified, not intractable, without status epilepticus (principal); F01.50 Vascular dementia, unspecified severity, without behavioral disturbance, psychotic disturbance, mood disturbance, and anxiety; I10 Essential (primary) hypertension; I69.354 Hemiplegia and hemiparesis following cerebral infarction affecting left non-dominant side; E78.5 Hyperlipidemia, unspecified; Z85.820 Personal history of malignant melanoma of skin; Z86.2 Personal history of diseases of the blood and blood-forming organs and certain disorders involving the immune mechanism; Z87.891 Personal history of nicotine dependence; Z79.899 Other long term (current) drug therapy
CPT/HCPCS: 36415; 70450; 71045; 80053; 80186; 80307; 81001; 82550; 82948; 85025; 85610; 85730; 93005; 96361; 96365; 99284; J1953; J7030

== ENCOUNTER 2024-04-17 13:52 | Outpatient (CLI) | payer OTHER, SELFPAY ==
[2024-04-17 18:13] LABS: Phenytoin Dilantin 16 ug/mL (10-20)
[2024-04-20 17:18] LABS: Phenytoin Dilantin Free 0.9 mg/L (1.0-2.0)
== END 2024-04-17 13:53 | disposition home or self-care (01) ==
LOC: ANHGOSHLAB 13:52
PROVIDERS: PCP Internal Medicine; Visit Provider Nurse Practitioner
DX: R56.9 Unspecified convulsions (principal)
CPT/HCPCS: 36415; 80185; 80186

== ENCOUNTER 2024-05-12 11:11 | Emergency (ER) | payer OTHER, SELFPAY ==
[2024-05-12] VITALS (30 sets, daily range): BP systolic 117–142; BP diastolic 58–125; PULSE 56–70; RESP 9–20; TEMP 36.7–37.1; O2SAT 97–100
--- NOTE | ~2024-05-12 | XR_ITS ---
XR chest 1V portable Ordering provider: Delfin Trent MD History: 74 years Female with . AMS AFTER SEZIURE YESTERDAY . Comparison: March 02, 2024 FINDINGS: MEDIASTINUM: The cardiac silhouette is slightly enlarged. Congestive melchor. Right central line unchang ed from previous examination. LUNGS: No effusions or pneumothorax. Bilateral prominent markings with interstitial thickening sugges tive of cardiac decompensation and pulmonary edema. Superimposed pneumonitis is not excluded. Clinica l correlation advised. OTHER: No free air under the diaphragm. Degenerative changes of the spine. IMPRESSION: Bilateral interstitial changes which may indicate pulmonary edema versus pneumonitis. Clinical correl ation advised. No significant change from previous examination. Right central line is also unchanged. Reviewed, dictated and finalized at location A. IMPRESSION: Bilateral interstitial changes which may indicate pulmonary edema versus pneumo nitis. Clinical correlation advised. No significant change from previous examin ation. Right central line is also unchanged.
--- NOTE | 2024-05-12 12:18 | ECG_ITS ---
Test Date: 2024-05-12 12:36:41 Measurements Intervals [place] Rate: 59 P: 40 OR: 183 QRS: 12 QRSD: 84 T: 41 QT: 441 QTc: 438 Interpretive Statements SINUS BRADYCARDIA POSSIBLE RIGHT VENTRICULAR CONDUCTION DELAY [RSR (QR) IN V1/V2] OTHERWISE UNREMARKABLE ECG COMPARED WITH 03/02/2024, NO DIFFERENCE Electronically Signed On 05-12-2024 14:23:04 CDT by Edin Taylor M.D.
[2024-05-12] MEDS: SODIUM CHLORIDE 0.9% IV 1,000 ML 999 ML IV CONT (12:31)
[2024-05-12 12:36] LABS: Basophils Percent Auto 0.6 % (0.2-1.2); Eosinophils Absolute Auto 0.1 K/mm3 (0-0.3); Eosinophils Percent Auto 1.6 % (0-4.4); Hematocrit 38.8 % (37.0-47.0); Hemoglobin 12.8 g/dL (12.0-15.0); Immature Granulocyte Absolute 0.01 K/mm3 (0.00-0.031); Immature Granulocyte Percent A 0.2 % (0-0.5); Lymphocytes Absolute Auto 1.97 K/mm3 (0.9-3.2); Mean Corpuscular Hemoglobin 31.8 pg (26-34); Mean Corpuscular Volume 96.3 fl (80-100); Mean Platelet Volume 10.4 fl (7.4-10.4); Monocytes Absolute Auto 0.6 K/mm3 (0.1-0.6); Monocytes Percent Auto 8.8 % (2.6-8.5); Neutrophils Absolute Auto 3.7 K/mm3 (1.3-6.7); Neutrophils Percent Auto 57.8 % (45.5-73.1); Platelet Count Result 287 k/mm3 (150-375); Red Blood Count 4.03 M/mm3 (4.2-5.4); Red Cell Distribution Width 13.8 % (11.5-14.5); White Blood Count 6.4 K/mm3 (4.5-10.0)
[2024-05-12 12:44] LABS: Alanine Aminotransferase 16 U/L (6-35); Albumin Level 4.6 g/dL (3.5-5.1); Alkaline Phosphatase 115 U/L (38-126); Anion Gap 8 mmol/L (4-12); Aspartate Amino Transferase 21 U/L (14-36); Bilirubin,Total 0.3 mg/dL (0.2-1.3); Blood Urea Nitrogen 16 mg/dL (7-17); Calcium 9.9 mg/dL (8.4-10.2); Carbon Dioxide 30 mmol/L (22-30); Chloride 100 mmol/L (98-107); Estimated CRCL calculation 73 ml/min; Estimated Glomerular Filt Rate > 60; Glucose 116 mg/dL (65-110); INR 0.9; Potassium 3.9 mmol/L (3.4-5.0); Prothrombin Time 12.7 Seconds (11.1-14.7); Sodium 138 mmol/L (137-145)
[2024-05-12 12:51] LABS: Partial Thromboplastin Time < 20.0 Seconds (22.3-36.8)
[2024-05-12 13:36] LABS: Add Urine Microscopic? YES; Appearance Urine Cloudy (Clear); Bacteria Urine 4+ /hpf; Bilirubin Urine Negative (Negative); Blood Urine Negative (Negative); Color Urine Yellow (Yellow); Glucose Urine UA Negative (Negative); Ketones Urine Trace mg/dL (Negative); Leukocyte Esterase Ur 1+ LEU/UL (Negative); Need Manual Microscopic Reviewed; Nitrate Urine Negative (Negative); Non Pathogenic Casts 0-2; Protein Urine Negative (Negative); Specific Grav Ur 1.015 (1.001-1.035); Squamous Epithelial Cell Urine None Seen /hpf (Few); Urobilinogen Urine 0.2 mg/dL (<2.0); WBC Urine 0-5 /hpf (0-3)
[2024-05-12 15:12] LABS: Phenytoin Dilantin 16 ug/mL (10-20)
[2024-05-12 15:15] LABS: NT Pro B Type Natriuretic Pept 184 pg/mL (19.9-100)
--- NOTE | 2024-05-12 15:28 | ED.GENADULT ---
HPI - General Adult General Chief complaint: Altered Mental Status Stated complaint: Altered mental status Time Seen by Provider: 05/12/24 12:00 History of Present Illness HPI narrative: Patient is a 74-year-old female who is orient x2 at baseline who presents the ER with change in mental status since having a seizure yesterday. Patient is oriented x2 here. She is in no distress. She is keenly alert when I walk in the room and tries to have a conversation. Related Data Home Medications Medication Instructions Recorded Confirmed polyethylene glycol 3350 17 See Rx Instructions .Route .COMPLEX 09/01/19 04/17/24 gram/dose oral powder (Miralax) Allergies Allergy/AdvReac Type Severity Reaction Status Date / Time codeine Allergy Unknown Unknown Verified 05/07/24 11:08 Review of Systems Review of Systems: ROS unobtainable: Yes unobtainable due to mental status PMFSH Past Medical History Medical History Anemia Aneurysm Shunt, 2001 Arthritis History of stroke with residual deficit HLD (hyperlipidemia) HTN (hypertension) Melanoma Other cerebrovascular disease Other sequelae following nontraumatic subarachnoid hemorrhage Seizures Stroke Unspecified convulsions Vascular dementia, unspecified severity, without behavioral disturbance, psychotic disturbance, mood disturbance, and anxiety Family History Family History Father Family history of heart disease in male family member before age 55 Family history of cardiovascular disease Hypertension Mother Cerebrovascular accident Social History Social History Smoking status: Former smoker Tobacco type: cigarettes Alcohol intake: never Substance use: never Do You Feel Safe in your Home?: Yes Lack of Transportation: No Lack of Food: Never True Current Housing: I Have Housing Concerned About Future Housing: No Difficulty Paying Gas/Electric Bills: No Difficulty Paying for Meds: No Currently Unemployed: No Education: High School Diploma/GED Difficulty w/ Childcare or Family Care: No Living arrangements: correction Additional living arrangements comments: [facility] Exam Narrative: GENERAL: Well-appearing, well-nourished, and in no acute distress. HEAD: Normocephalic, atraumatic. ENT: Dry mucous membranes CHEST: Clear to auscultation. No respiratory distress. HEART: Regular rate and rhythm. Normal peripheral pulses. ABDOMEN: Soft, nontender, nondistended. EXTREMITIES: Normal range of motion. No edema. SKIN: Warm, dry, no rash. NEURO: Alert and oriented x2. Course Course Emergency Course: patient resting comfortably. Hydrated. X-ray with possible pneumonitis versus pulmonary edema BNP normal. No significant elevation white blood cell count. Urinalysis with 4+ bacteria. Patient has therapeutic phenytoin level. Kera level sent a request of facility. Will treat with cefuroxime and doxycycline. Vital Signs Vital signs: Vital Signs Temperature 98.1 F 05/12/24 11:12 Pulse Rate 62 05/12/24 11:12 Respiratory Rate 13 05/12/24 11:12 Blood Pressure 138/60 05/12/24 11:12 Pulse Oximetry 98 05/12/24 11:12 Temperature 98.1 F 05/12/24 11:12 Pulse Rate 62 05/12/24 11:12 Respiratory Rate 13 05/12/24 11:12 Blood Pressure 138/60 05/12/24 11:12 Pulse Oximetry 98 05/12/24 11:22 Oxygen Delivery Room Air 05/12/24 11:22 Medical Decision Making Vital Signs Vital Signs: Vital Signs Temperature 98.1 F 05/12/24 11:12 Pulse Rate 62 05/12/24 11:12 Respiratory Rate 13 05/12/24 11:12 Blood Pressure 138/60 05/12/24 11:12 Pulse Oximetry 98 05/12/24 11:12 Temperature 98.1 F 05/12/24 11:12 Pulse Rate 62 05/12/24 11:12 Respiratory Rate 13 05/12/24 11:12 B
[2024-05-14 09:38] LABS: Levetiracetam Keppra 27.4 mcg/mL (6.0-46.0)
== END 2024-05-12 21:37 | disposition home or self-care (01) ==
PROVIDERS: Emergency Provider Emergency Medicine; PCP Internal Medicine
DX: J98.4 Other disorders of lung (principal); N39.0 Urinary tract infection, site not specified; I10 Essential (primary) hypertension; I69.398 Other sequelae of cerebral infarction; E78.5 Hyperlipidemia, unspecified; F01.50 Vascular dementia, unspecified severity, without behavioral disturbance, psychotic disturbance, mood disturbance, and anxiety; D64.9 Anemia, unspecified; M19.90 Unspecified osteoarthritis, unspecified site; Z86.2 Personal history of diseases of the blood and blood-forming organs and certain disorders involving the immune mechanism; Z85.820 Personal history of malignant melanoma of skin
CPT/HCPCS: 36415; 71045; 80053; 80177; 80185; 81001; 83880; 85025; 85610; 85730; 87086; 93005; 96360; 99283; J7030

== ENCOUNTER 2024-05-20 17:39 | Emergency (ER) | payer OTHER, SELFPAY ==
[2024-05-20] VITALS (9 sets, daily range): BP systolic 130–179; BP diastolic 60–78; PULSE 58–78; RESP 14–18; TEMP 36.4–36.8; O2SAT 97–100
--- NOTE | ~2024-05-20 | CT_ITS ---
EXAMINATION: CT brain wo con DATE: 05/20/2024 21:28 INDICATION: Head injury . TECHNIQUE: Computed tomography (CT) of the head was performed without intravenous contrast. The mA wa s adjusted according to patient size. Iterative reconstruction technique was employed. The dose-lengt h product was 681.00 mGy-cm. COMPARISON: 03/02/2024. FINDINGS: No acute intracranial hemorrhage or extra-axial fluid collection. No hydrocephalus, mass, or herniation. No acute ischemic infarct. Unremarkable dural venous sinus attenuation. No acute osseous abnormality. The aerated spaces are clear. Right frontal approach [employer] shunt terminating at the midline, likely within the cavum septum pellucidum . Left inferior frontal embolization coils. Right posterior frontal encephalomalacia. Mild atrophy an d severe chronic white matter change. Atherosclerotic intracranial calcification. Bilateral lens repl acements. IMPRESSION: No acute intracranial process. Reviewed, dictated and finalized at location K.
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
--- NOTE | ~2024-05-20 | CT_ITS ---
EXAMINATION: CT cervical spine wo con DATE: 05/20/2024 21:28 INDICATION: Head injury TECHNIQUE: Computed tomography (CT) of the cervical spine was performed without intravenous contrast. Automated exposure control and iterative reconstruction technique were employed. The dose-length pro duct was 486.14 mGy-cm. COMPARISON: None. FINDINGS: Vertebral Body Alignment: Stable grade 1 anterolistheses at C3-4 and C4-5. Mild reversal of the nagi l cervical lordosis centered at C5. Craniocervical and atlantoaxial alignment: Moderate degenerative change. Alignment intact. Osseous structures/fracture: No evidence of a lytic or blastic process in the visualized spine. No e vidence of acute fracture. Cervical soft tissues: The paraspinal soft tissues planes are maintained. Degenerative changes: Multilevel moderate degenerative disc disease and facet arthropathy. No severe central canal or neural foraminal narrowing. IMPRESSION: No acute fracture or traumatic malalignment in the cervical spine. Reviewed, dictated and finalized at location K.
[2024-05-20] MEDS: ACETAMINOPHEN 500 MG TABLET 1000 MG PO (21:53)
--- NOTE | 2024-05-20 22:27 | ED_ITS ---
HPI - General Adult General Chief complaint: Fall Stated complaint: FALL Time Seen by Provider: 05/20/24 19:25 History of Present Illness HPI narrative: Patient is a 71-year-old female who presents emergency department with chief complaint of left shoulder pain. Patient had a ground level fall at a local facility patient's baseline alert oriented x1 and not able to provide much history. Related Data Home Medications Medication Instructions Recorded Confirmed polyethylene glycol 3350 17 See Rx Instructions .Route .COMPLEX 09/01/19 04/17/24 gram/dose oral powder (Miralax) Allergies Allergy/AdvReac Type Severity Reaction Status Date / Time codeine Allergy Unknown Unknown Verified 05/07/24 11:08 Review of Systems Review of Systems: A 10 system review of systems was completed on the patient and is negative except for what is stated in the HPI. Nursing and ancillary documentation was reviewed. [facility] Past Medical History Medical History Anemia Aneurysm Shunt, 2001 Arthritis History of stroke with residual deficit HLD (hyperlipidemia) HTN (hypertension) Melanoma Other cerebrovascular disease Other sequelae following nontraumatic subarachnoid hemorrhage Seizures Stroke Unspecified convulsions Vascular dementia, unspecified severity, without behavioral disturbance, psychotic disturbance, mood disturbance, and anxiety Family History Family History Father Family history of heart disease in male family member before age 55 Family history of cardiovascular disease Hypertension Mother Cerebrovascular accident Social History Social History Smoking status: Former smoker Tobacco type: cigarettes Alcohol intake: never Substance use: never Do You Feel Safe in your Home?: Yes Lack of Transportation: No Lack of Food: Never True Current Housing: I Have Housing Concerned About Future Housing: No Difficulty Paying Gas/Electric Bills: No Difficulty Paying for Meds: No Currently Unemployed: No Education: High School Diploma/GED Difficulty w/ Childcare or Family Care: No Living arrangements: [facility] Additional living arrangements comments: [facility] Exam Narrative: GENERAL: Well-appearing, well-nourished, and in no acute distress. HEAD: Normocephalic, atraumatic. EYES: PERRLA and EOMI. ENT: Nares clear, no rhinorrhea or epistaxis. Mucous membranes moist. NECK: Supple. CHEST: Clear to auscultation. No respiratory distress. HEART: Regular rate and rhythm. No murmur heard. Normal peripheral pulses. ABDOMEN: Soft, nontender, nondistended, normal active bowel sounds. EXTREMITIES: Normal range of motion in all extremities except for left upper extremity there is tenderness to palpation of the left shoulder, no laceration or deformity. No edema. SKIN: Warm, dry, no rash. NEURO: No focal deficits. Alert and oriented x1. PSYCH: Normal mood and affect. Course Vital Signs Vital signs: Vital Signs Temperature 36.4 C 05/20/24 17:41 Respiratory Rate 16 05/20/24 17:41 Blood Pressure 179/72 H 05/20/24 17:41 Pulse Oximetry 97 05/20/24 17:41 Oxygen Delivery Room Air 05/20/24 17:41 Temperature 36.4 C 05/20/24 17:47 Pulse Rate 58 L 05/20/24 17:47 Respiratory Rate 15 05/20/24 17:47 Blood Pressure 179/72 H 05/20/24 17:47 Pulse Oximetry 99 05/20/24 17:47 Oxygen Delivery Room Air 05/20/24 17:47 Medical Decision Making MDM Narrative Medical decision making narrative: Differential diagnosis includes head injury, cervical spine fracture, upper extremity fracture Plain film x-rays of the left shoulder showed Impacted fracture of the surgical neck of the left humerus. CT head CT C-spine showed no acute abnormality. Patient was placed in the sling will be referred to Orthopedics Vital Signs Vital Signs: Vital Signs Temperature 36.4 C 05/20/24 17:41 Respiratory Rate 16 05/20/24 17:41 Blood Pressure 179/72 H 05/20/24 17:41 Pulse Oximetry 97 05/20/24 17:41 Oxygen Delivery Room Air 05/20/24 17:41 Temperature 36.4 C 05/20/24 17:47 Pulse Rate 58 L 05/20/24 17:47 Respiratory Rate 15 05/20/24 17:47 Blood Pressure 179/72 H 05/20/24 17:47 Pulse Oximetry 99 05/20/24 17:47 Oxygen Delivery Room Air 05/20/24 17:47 Discharge Plan Discharge Clinical Impression: Fracture, humerus closed Patient Disposition: NH Residential/Asst Living Condition: Stable Instructions: Antibiotic Form, Arm Fracture in Adults (ED), How to Use a Sling (ED) Additional Instructions: It is recommended that you wear the sling a please follow-up with orthopedics you may take Tylenol for the discomfort Prescriptions: No Action polyethylene glycol 3350 [Miralax] 17 gram/dose powder See Rx Instructions .ROUTE .COMPLEX Rx Instructions: Take (17G) by oral route everyday mixed with 8oz. water, juice, soda, coffee or tea; escitalopram oxalate [Lexapro] 10 mg tablet 10 mg PO DAILY Qty: 30 7RF cefuroxime axetil 500 mg tablet 500 mg PO BID Qty: 10 0RF doxycycline monohydrate 100 mg capsule 100 mg PO BID Qty: 10 0RF calcium carbonate-vitamin D3 600 mg(1,500mg) -400 unit tablet See Rx Instructions .ROUTE .COMPLEX Qty: 180 3RF Dose Instruction: TAKE 1 TABLET BY MOUTH EVERY MORNING AND BEDTIME Rx Instructions: TAKE 1 TABLET BY MOUTH EVERY MORNING AND BEDTIME potassium chloride 20 mEq/15 mL liquid 10 meq PO DAILY Qty: 1200 2RF clopidogrel [Plavix] 75 mg tablet 75 mg PO .COMPLEX Qty: 90 2RF Rx Instructions: 75 mg PO daily in the am; *CAN BE CRUSHED* furosemide 40 mg tablet See Rx Instructions .ROUTE .COMPLEX Qty: 90 2RF Rx Instructions: Take 1 tablet by mouth every morning at 8am ; *CAN BE CRUSHED* levetiracetam 100 mg/mL solution See Rx Instructions .ROUTE .COMPLEX Qty: 750 3RF Rx Instructions: Increase dose to 15ml in the morning and 10ml at bedtime. lisinopril 5 mg tablet 5 mg PO DAILY Qty: 90 2RF Rx Instructions: *CAN BE CRUSHED* memantine 10 mg tablet 10 mg PO BID Qty: 180 2RF Rx Instructions: *CAN BE CRUSHED* simvastatin 20 mg tablet 20 mg PO .Daily in the Evening Qty: 90 2RF Rx Instructions: *CAN BE CRUSHED* phenytoin 50 mg tablet,chewable 100 mg PO TID Qty: 540 1RF Follow-up/Referrals: Don Garcia MD [Physician] - Vinny Storm DO [Primary Care Provider] - Time of Disposition: 22:31
[2024-05-21 03:35] VITALS: BP 139/78; PULSE 76; RESP 19; O2SAT 97
== END 2024-05-21 03:36 ==
PROVIDERS: Emergency Provider Emergency Medicine; PCP Internal Medicine
DX: S42.212A Unspecified displaced fracture of surgical neck of left humerus, initial encounter for closed fracture (principal); I10 Essential (primary) hypertension; E78.5 Hyperlipidemia, unspecified; I69.398 Other sequelae of cerebral infarction; F01.50 Vascular dementia, unspecified severity, without behavioral disturbance, psychotic disturbance, mood disturbance, and anxiety; Z85.820 Personal history of malignant melanoma of skin; W18.30XA Fall on same level, unspecified, initial encounter
CPT/HCPCS: 70450; 72125; 73030; 73060; 99284; A4565; A9270

== ENCOUNTER 2024-06-17 06:46 | Emergency (ER) | payer OTHER, SELFPAY ==
--- NOTE | ~2024-06-17 | CT_ITS ---
EXAMINATION: CT brain wo con DATE: 06/17/2024 07:41 INDICATION: Fall. TECHNIQUE: Computed tomography (CT) of the head was performed without intravenous contrast. The mA wa s adjusted according to patient size. Iterative reconstruction technique was employed. The dose-lengt h product was 908.00 mGy-cm. COMPARISON: Head CT 05/20/2024 FINDINGS: There is chronic encephalomalacia involving right frontal lobe and right insula. There are scattered areas of low attenuation in the cerebral white matter. 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 Cavum septum pellucidum is noted. There is a shunt catheter on the right with ti p at the septum pellucidum. There is no intracranial hemorrhage, acute infarction, or abnormal intrac ranial mass lesion. The ventricles are normal in size. The orbits are normal. The mastoid air cells a re normal. The paranasal sinuses are clear. IMPRESSION: 1. Chronic encephalomalacia involving the right frontal lobe and right insula. 2. Stable extensive nonspecific cerebral white matter disease, which likely represents chronic small vessel ischemic disease. 3. Normal sized ventricles. Shunt catheter in expected position. Reviewed, dictated and finalized at location A. TYPER IMPRESSION: 1. Chronic encephalomalacia involving the right frontal lobe and right insula. 2. Stable extensive nonspecific cerebral white matter disease, which likely rep resents chronic small vessel ischemic disease. 3. Normal sized ventricles. Shunt catheter in expected position.
--- NOTE | ~2024-06-17 | CT_ITS ---
EXAMINATION: CT cervical spine wo con DATE: 06/17/2024 07:40 INDICATION: Head injury. TECHNIQUE: Computed tomography (CT) of the cervical spine was performed without intravenous contrast. Automated exposure control and iterative reconstruction technique were employed. The dose-length pro duct was 324.83 mGy-cm. COMPARISON: CT cervical spine 05/20/2024 FINDINGS: There is kyphosis of cervical spine. There is 2 mm anterolisthesis of C3 on C4 and C4 on C5 . There is mild chronic anterior wedging of C7 vertebral body. There is mildly decreased disc height at C3-C4 and C4-C5 and severely decreased disc height at C5-C6 and C6-C7. The following disc levels a re specifically discussed: C2-C3: There is no uncovertebral joint osteoarthritis. There is severe bilateral facet joint osteoart hritis. There is mild bilateral neural foraminal stenosis. There is no central canal stenosis. C3-C4: There is mild right and moderate left uncovertebral joint osteoarthritis. There is severe bila teral facet joint osteoarthritis. There is mild left neural foraminal stenosis. There is no central c anal stenosis. C4-C5: There is mild bilateral uncovertebral joint osteoarthritis. There is severe bilateral facet radha int osteoarthritis. There is mild right neural foraminal stenosis. There is mild central canal stenos is. C5-C6: There is severe bilateral uncovertebral joint osteoarthritis. There is mild right and severe l eft facet joint osteoarthritis. There is mild bilateral neural foraminal stenosis. There is mild cent ral canal stenosis. C6-C7: There is severe bilateral uncovertebral joint osteoarthritis. There is moderate right and sweta re left facet joint osteoarthritis. There is no neural foraminal stenosis. There is mild central blanca l stenosis. C7-T1: There is no uncovertebral joint osteoarthritis. There is mild bilateral facet joint osteoarthr itis. There is no neural foraminal stenosis. There is no central canal stenosis. IMPRESSION: 1. No fracture. 2. Severe cervical spondylosis. Reviewed, dictated and finalized at location A. E EXECUTIVE
--- NOTE | ~2024-06-17 | XR_ITS ---
EXAMINATION: XR shoulder LT min 2V DATE: 06/17/2024 08:01 INDICATION: Left shoulder injury. Fall. TECHNIQUE: 3 views of left shoulder were obtained. COMPARISON: Left shoulder radiographs 05/20/2024, chest radiograph 10/15/2023 FINDINGS: There is a comminuted fracture of the proximal left humerus. At the surgical neck, the main distal fracture fragment demonstrates impaction and 6 mm anterior displacement. Callus formation is noted. There is a loose body in the glenohumeral joint. There is mild osteoarthritis of glenohumeral joint and acromioclavicular joint. Shrapnel overlies the left chest. There is old fracture of left fo urth rib. IMPRESSION: 1. Healing two-part fracture of proximal left humerus. 2. Mild polyarticular osteoarthritis. 3. Left glenohumeral joint loose body. Reviewed, dictated and finalized at location A. GROOMER
--- NOTE | ~2024-06-17 | XR_ITS ---
EXAMINATION: XR wrist LT 2V DATE: 06/17/2024 08:01 INDICATION: Left wrist injury. TECHNIQUE: 2 views of left wrist were obtained. COMPARISON: Left forearm radiograph 07/28/2023 FINDINGS: Bone alignment is normal. No fracture. There is mild osteoarthritis of first carpometacarpa l joint. IMPRESSION: 1. No fracture. Reviewed, dictated and finalized at location A. CAL ASSEMBLER IMPRESSION: 1. No fracture.
--- NOTE | ~2024-06-17 | XR_ITS ---
EXAMINATION: XR elbow LT 2V DATE: 06/17/2024 08:01 INDICATION: Left elbow injury and pain. TECHNIQUE: 3 views of left elbow were obtained. COMPARISON: None. FINDINGS: Alignment is normal. No fracture. There is mild elbow joint osteoarthritis. No elbow joint effusion. IMPRESSION: 1. Mild elbow joint osteoarthritis. Reviewed, dictated and finalized at location A. TO DOOR SELLING AGENT
[2024-06-17 06:47] VITALS: BP 132/80; PULSE 78; RESP 13; TEMP 36.4; O2SAT 98
[2024-06-17 06:56] VITALS: BP 132/80; PULSE 63; RESP 12; O2SAT 97
--- NOTE | 2024-06-17 07:35 | ED_ITS ---
HPI - Fall General Chief Complaint: Fall Stated Complaint: unwitnessed GLF Time Seen by Provider: 06/17/24 07:08 History of Present Illness HPI Narrative: 74-year-old female with history of advanced dementia, previous stroke, frequent falls. She was recently seen here for a fall this left her with a left proximal humerus fracture. Manage conservatively on outpatient basis with orthopedic surgery. Today she had no unwitnessed ground level fall at the nursing facility. Patient has no acute complaints and is at her baseline mentation which is alert oriented to herself only x1. She does have a hematoma in the posterior left side of her scalp but no active bleeding pick she denies any active pain in this area. She still has some pain in her left shoulder proximally but denies any new pain in the arms or legs. She otherwise is well appearing, well groomed and not any acute distress during my initial encounter. Historical elements are limited secondary to patient's level of dementia however. EMR was use for further evaluation as well as the [facility] report and EMS report. She is on several neurological medications including memantine and Dilantin but no anticoagulation such as aspirin or any blood thinners. Related Data Home Medications Medication Instructions Recorded Confirmed polyethylene glycol 3350 17 See Rx Instructions .Route .COMPLEX 09/01/19 05/28/24 gram/dose oral powder (Miralax) Allergies Allergy/AdvReac Type Severity Reaction Status Date / Time codeine Allergy Unknown Hives Verified 05/28/24 13:29 Review of Systems Review of Systems: As reviewed above in [facility]PI [facility] Past Medical History Medical History Anemia Aneurysm Shunt, 2002 Arthritis History of stroke with residual deficit HLD (hyperlipidemia) HTN (hypertension) Melanoma Other cerebrovascular disease Other sequelae following nontraumatic subarachnoid hemorrhage Seizures Stroke Unspecified convulsions Vascular dementia, unspecified severity, without behavioral disturbance, psychotic disturbance, mood disturbance, and anxiety Family History Family History Father Family history of heart disease in male family member before age 55 Family history of cardiovascular disease Hypertension Mother Cerebrovascular accident Social History Social History Smoking status: Former smoker Tobacco type: cigarettes Alcohol intake: never Substance use: never Do You Feel Safe in your Home?: Yes Lack of Transportation: No Lack of Food: Never True Current Housing: I Have Housing Concerned About Future Housing: No Difficulty Paying Gas/Electric Bills: No Difficulty Paying for Meds: No Currently Unemployed: No Education: High School Diploma/GED Difficulty w/ Childcare or Family Care: No Living arrangements: [facility] Additional living arrangements comments: [facility] (formerly [facility]) Exam Narrative: GENERAL: [Well-appearing, well-nourished, and in no acute distress.] HEAD: Posterior scalp hematoma on the left side, no active bleeding. Normal range of motion of the head. Otherwise normocephalic EYES: [PERRLA and EOMI.] ENT: Nares clear, no rhinorrhea or epistaxis. Mucous membranes moist. NECK: Supple. CHEST: [Clear to auscultation. No respiratory distress.] HEART: [Regular rate and rhythm]. No murmur heard. [Normal peripheral pulses.] ABDOMEN: [Soft, nondistended], [nontender], [No rigidity or guarding] EXTREMITIES: Normal range of motion. [No edema.] Tenderness to palpation of the left proximal humerus limiting range of motion secondary to pain. No obvious appreciable step-offs deformities of the bilateral upper lower extremities, no midline thoracic cervical or lumbar spinal tenderness. SKIN: Warm, dry, no rash. NEURO: No appreciable focal deficits, moves all extremities, alert oriented x1 which is her baseline. PSYCH: [Normal mood and affect.] Course Vital Signs Vital signs: Vital Signs Temperature 36.4 C L 06/17/24 06:47 Pulse Rate 78 06/17/24 06:47 Respiratory Rate 13 06/17/24 06:47 Blood Pressure 132/80 06/17/24 06:47 Pulse Oximetry 98 06/17/24 06:47 Oxygen Delivery Room Air 06/17/24 06:47 Temperature 36.4 C L 06/17/24 06:47 Pulse Rate 63 06/17/24 06:56 Respiratory Rate 12 06/17/24 06:56 Blood Pressure 132/80 06/17/24 06:56 Pulse Oximetry 97 06/17/24 06:56 Oxygen Delivery Room Air 06/17/24 06:47 MDM - Fall MDM Narrative Medical decision making narrative: 74-year-old female with history of advanced dementia and previous stroke presented to the emergency department after a unwitnessed ground level fall at her nursing facility. Patient overall appears very well and well put together and has no acute complaints, she is alert oriented at her baseline mentation is which is just to herself x1. She does have a posterior scalp hematoma without any active bleeding but no other obvious signs of trauma. She does have a recently diagnosed proximal humerus fracture on left side but no new injuries ap parent she denies any active pain in her extremities. No new neurological deficits are evident. Vital signs are reassuring without any blood pressure concerns, tachycardia, hypoxia, respiratory rate elevations or fever. Given her age and risk factors CT head was obtained as well as x-rays of her left upper extremity to see how the wound is healing and if there are any other call fractures from her fall although less likely given her lack of pain at this time. Barring any kind of significant findings on the CT scanner x-rays patient can likely return safely back to her nursing facility given her lack of complaints, baseline mentation and no acute injuries discovered. Imaging studies were independently reviewed by myself and also interpreted by radiology. Patient suffered no intracranial, it cervical or bony fractures or deformities. No intracranial process. Given normal vital signs, baseline mentation and lack of injury she can be safely discharged back to her [facility] facility at this time. Patient agreeable to this plan. Medical Records Attestation: I reviewed the patient's medical records. Lab Data Attestation: I reviewed the patient's lab results. Imaging Data Attestation: I personally reviewed and interpreted this imaging study as follows: Radiologist's impression: Impressions Head CT 06/17/24 07:49 IMPRESSION: 1. Chronic encephalomalacia involving the right frontal lobe and right insula. 2. Stable extensive nonspecific cerebral white matter disease, which likely represents chronic small vessel ischemic disease. 3. Normal sized ventricles. Shunt catheter in expected position. Cervical Spine CT 06/17/24 07:56 IMPRESSION: 1. No fracture. 2. Severe cervical spondylosis. Elbow X-Ray 06/17/24 08:03 IMPRESSION: 1. Mild elbow joint osteoarthritis. Shoulder X-Ray 06/17/24 08:04 IMPRESSION: 1. Healing two-part fracture of proximal left humerus. 2. Mild polyarticular osteoarthritis. 3. Left glenohumeral joint loose body. Wrist X-Ray 06/17/24 08:06 IMPRESSION: 1. No fracture. Discharge Plan Discharge Clinical Impression: CHI (closed head injury), Fall Patient Disposition: NH Prison/Asst Living Condition: Stable Instructions: Antibiotic Form, Fall Prevention for Older Adults (ED), Head Injury (DC) Additional Instructions: Follow-up with your primary care provider. No acute fractures or injuries today [place] your left shoulder injury is slowly healing, continue follow-up with the orthopedic surgeon outpatient. Return with any new or worsening concerns at any time. Prescriptions: No Action polyethylene glycol 3350 [Miralax] 17 gram/dose powder See Rx Instructions .ROUTE .COMPLEX Rx Instructions: Take (17G) by oral route everyday mixed with 8oz. water, juice, soda, coffee or tea; escitalopram oxalate [Lexapro] 10 mg tablet 10 mg PO DAILY Qty: 30 7RF cefuroxime axetil 500 mg tablet 500 mg PO BID Qty: 10 0RF doxycycline monohydrate 100 mg capsule 100 mg PO BID Qty: 10 0RF calcium carbonate-vitamin D3 600 mg(1,500mg) -400 unit tablet See Rx Instructions .ROUTE .COMPLEX Qty: 180 3RF Dose Instruction: TAKE 1 TABLET BY MOUTH EVERY MORNING AND BEDTIME Rx Instructions: TAKE 1 TABLET BY MOUTH EVERY MORNING AND BEDTIME potassium chloride 20 mEq/15 mL liquid 10 meq PO DAILY Qty: 1200 2RF clopidogrel [Plavix] 75 mg tablet 75 mg PO .COMPLEX Qty: 90 2RF Rx Instructions: 75 mg PO daily in the am; *CAN BE CRUSHED* furosemide 40 mg tablet See Rx Instructions .ROUTE .COMPLEX Qty: 90 2RF Rx Instructions: Take 1 tablet by mouth every morning at 8am ; *CAN BE CRUSHED* levetiracetam 100 mg/mL solution See Rx Instructions .ROUTE .COMPLEX Qty: 750 3RF Rx Instructions: Increase dose to 15ml in the morning and 10ml at bedtime. lisinopril 5 mg tablet 5 mg PO DAILY Qty: 90 2RF Rx Instructions: *CAN BE CRUSHED* memantine 10 mg tablet 10 mg PO BID Qty: 180 2RF Rx Instructions: *CAN BE CRUSHED* simvastatin 20 mg tablet 20 mg PO .Daily in the Evening Qty: 90 2RF Rx Instructions: *CAN BE CRUSHED* phenytoin 50 mg tablet,chewable 100 mg PO TID Qty: 540 1RF Follow-up/Referrals: Vinny Storm DO [Primary Care Provider] - Stand Alone Forms: Prison Discharge Time of Disposition: 08:36
[2024-06-17 08:52] VITALS: BP 123/73; PULSE 60; RESP 15; O2SAT 99
== END 2024-06-17 10:14 ==
PROVIDERS: Emergency Provider Student in an Organized Health Care Education/Training Program; PCP Internal Medicine
DX: S00.03XA Contusion of scalp, initial encounter (principal); F01.50 Vascular dementia, unspecified severity, without behavioral disturbance, psychotic disturbance, mood disturbance, and anxiety; I10 Essential (primary) hypertension; I69.398 Other sequelae of cerebral infarction; E78.5 Hyperlipidemia, unspecified; M19.012 Primary osteoarthritis, left shoulder; M19.022 Primary osteoarthritis, left elbow; R29.6 Repeated falls; Z98.2 Presence of cerebrospinal fluid drainage device; Z85.820 Personal history of malignant melanoma of skin; Z87.891 Personal history of nicotine dependence; M47.812 Spondylosis without myelopathy or radiculopathy, cervical region; G93.89 Other specified disorders of brain; R90.82 White matter disease, unspecified; W19.XXXA Unspecified fall, initial encounter
CPT/HCPCS: 70450; 72125; 73030; 73070; 73100; 99284

== ENCOUNTER 2024-09-11 10:45 | Emergency (ER) | payer OTHER, SELFPAY ==
--- NOTE | ~2024-09-11 | XR_ITS ---
XR chest 1V portable 09/11/2024 11:30 Indication: Weakness Procedure: AP portable chest Comparison: Comparison to multiple prior studies sequentially, with oldest reviewed study dated 10/14. Findings: There is a ventriculoperitoneal shunt. Borderline heart size. No focal air space disease, p ulmonary edema, pleural effusion or suspected pneumothorax. There is metallic shrapnel overlying the left upper chest. There is a healing/healed left humeral neck fracture Impression: 1: No acute cardiopulmonary disease. Reviewed, dictated and finalized at location B. IDE PLANT TECHNICIAN Impression: 1: No acute cardiopulmonary disease.
--- NOTE | ~2024-09-11 | CT_ITS ---
EXAMINATION: CT brain wo con DATE: 09/11/2024 11:26 INDICATION: Altered mental status TECHNIQUE: Computed tomography (CT) of the head was performed without intravenous contrast. Sagittal and coronal reconstructions were performed. The mA was adjusted according to patient size. Iterative reconstruction technique was employed. The dose-length product was 681.00 mGy-cm. COMPARISON: head CT dated 06/17/24 FINDINGS: Change in a moderate-sized region of encephalomalacia in the left frontal lobe and insula consistent with sequela of old infarction. Metallic streak artifact associated with likely embolization coils in the anterior inferior left frontal lobe. Right frontal ventricular drain catheter extending through the anterior horn of the right lateral ventricle with distal tip at a normal variant cavum septum pel lucidum. No acute intracranial hemorrhage, acute infarction or abnormal extra axial fluid collection. There is additional extensive scattered white matter hypoattenuation consistent with chronic small v essel ischemic disease. Symmetric mild increased prominence of the sulci and ventricles consistent wi th mild age-appropriate diffuse cerebral volume loss. No mass/mass effect. The orbits, paranasal sinu ses and mastoid air cells are normal. IMPRESSION: 1. Chronic encephalomalacia in the right frontal lobe and right insula, likely sequela of old infarct . No acute intracranial process. 2. Age-related changes including mild diffuse volume loss and extensive nonspecific cerebral white ma tter hypoattenuation consistent with chronic small vessel ischemic disease. 3. Unchanged right frontal ventricular drain with distal tip at the caval septum pellucidum. 4. Likely embolization coils in the anterior inferior left frontal lobe. Reviewed, dictated and finalized at location A. HER'S ASSISTANT IMPRESSION: 1. Chronic encephalomalacia in the right frontal lobe and right insula, likely sequela of old infarct. No acute intracranial process. 2. Age-related changes including mild diffuse volume loss and extensive nonspec ific cerebral white matter hypoattenuation consistent with chronic small vessel ischemic disease. 3. Unchanged right frontal ventricular drain with distal tip at the caval septu m pellucidum. 4. Likely embolization coils in the anterior inferior left frontal lobe.
--- NOTE | 2024-09-11 10:46 | ECG_ITS ---
Test Date: 2024-09-11 13:38:41 Measurements Intervals Wy[place]off Rate: 58 P: -57 SC: 160 QRS: 12 QRSD: 78 T: 42 QT: 437 QTc: 429 Interpretive Statements SINUS BRADYCARDIA EARLY PRECORDIAL R/S TRANSITION BASELINE ARTIFACT- I, II, III, AVR, AVL, AVF, V1-V6 BORDERLINE ECG Compared to ECG 05/12/2024 12:36:41 No significant changes Electronically Signed On 09-11-2024 13:45:37 ARGON TESTER by Elia Kelley D.O.
[2024-09-11 10:49] VITALS: BP 143/71; PULSE 67; RESP 16; TEMP 36.4; O2SAT 100
[2024-09-11 11:00] VITALS: BP 137/56; PULSE 66; RESP 16; TEMP 36.6; O2SAT 98
--- OUTSIDE RECORDS SUMMARY | 2024-09-11 11:14 | XMS_ITS | Clinical Summary ---
Author Organization [facility] [employer] Address [address] [place] [address] Care Team Providers Care Slab Lifting Supervisor Name Role Phone Vinny Storm DO Primary Care Provider [phone] Source Comments [employer] [facility]),non-owned Affiliates and Associated Physician Practices is amultiple site organization consisting of ambulatory clinics and hospital sitesin [place], [place], [place] and [place]. This disclosure is being madepursuant to the Care Everywhere program and may not contain all information available regarding this patient. Last updated 18.[employer] ([employer]) Allergies No known active allergies Medications * Be aware that medications may not be up to date on this document. Alwaysverify current medications with the patient. Medication Sig Dispensed Refills Start Date End Date Status aspirin (Aspirin) 81 MG chew tablet Take 1 (one) tablet by mouth once daily 100 tablet 09/14/2023 Active atorvastatin (Lipitor) 80 MG tablet Take 1 (one) tablet by mouth once daily 30 tablet 09/14/2023 Active Social History Tobacco Use Types Packs/Day Years Used Date Smoking Tobacco: Never Assessed Sex and Gender Information Value Date Recorded Sex Assigned at Not on file Gender Identity Not on file Sexual Orientation Not on file Last Filed Vital Signs Vital Sign Reading Time Taken Comments Blood Pressure 135/14 09/14/2023 7:00 PM WELLNESS MANAGER Pulse 59 09/14/2023 7:00 PM WELLNESS MANAGER Temperature 37.1 C (98.7 F) 09/14/2023 8:50 AM WELLNESS MANAGER Respiratory Rate 18 09/14/2023 7:00 PM WELLNESS MANAGER Oxygen Saturation 96% 09/14/2023 7:00 PM WELLNESS MANAGER Inhaled Oxygen Concentration - - Weight 82.6 kg (182 lb) 09/14/2023 8:50 AM WELLNESS MANAGER Height 172.7 cm (5' 8 ) 09/14/2023 8:50 AM WELLNESS MANAGER Body Mass Index 27.67 09/14/2023 8:50 AM WELLNESS MANAGER Plan of Treatment Health Maintenance Due Date Last Done Comments BONE DENSITY TESTING 1950 COLOGUARD (AGES 45-75) - COL ON CA SCREENING 1950 COLON MONITORING 1951 COLONOSCOPY - COLON CA SCREENING 1951 CT COLONOGRAPHY - COLON CA SCREENING 1950 Colorectal Cancer Screening 1950 FIT - COLON CA SCREENING 1950 FLEX SIG - COLON CA SCREENING 1950 MAMMOGRAM 1950 HEPATITIS C SCREENING 02/07/1969 DTAP/TDAP/TD VACCINES (1 - Tdap) 1970 PNEUMOCOCCAL VACCINE 50+ (1 of 1 - PCV) 2001 ZOSTER VACCINE (1 of 2) 2001 Respiratory Syncytial Virus (RSV) Vaccine Pt: or over 60 yrs (1 - Risk 60-74 years 1-dose series) 2011 COVID-19 VACCINE (2023-2 5 season) 2024 INFLUENZA VACCINE (#1) 2024 DEPRESSION SCREENING 07/23/2024 MEDICARE AWV CALENDAR YEAR 2024 HEPATITIS B VACCINE Aged Out No longe r eligible based on patient's age to complete this topic HIB VACCINE Aged Out No longer eligi ble based on patient's age to complete this topic HPV VACCINE Aged Out No longer eligi ble based on patient's age to complete this topic MENINGOCOCCAL (Group B) VACCINE Aged Out No longer eligible based on patient's age to complete this topic MENINGOCOCCAL VACCINE Aged Out No anyi lisa eligible based on patient's age to complete this topic Medical Devices Implanted Type Area Supervisor Heavy Equipment Device Identifier Shelf Expiration Date Model / Serial / Lot Unknown Aneurysm Coil Unknown Shunt Care Teams Slab Lifting Supervisor Relationship Specialty Start Date End Date Vinny Storm DO [address] [place] [address] PCP - General Internal Medicine 09/14/23
--- OUTSIDE RECORDS SUMMARY | 2024-09-11 11:14 | XMS_ITS | Continuity of Care Document ---
Author Organization [facility] Address [address] [place] [address] Phone Care Team Providers Care Director Of Labor Relations Name Role Phone [facility] Unavailable Unavail able No Anderson Unavailable Unavailable Procedures Procedure Date Vision Svcs Frames Purchases BF Polycarb Sphcyl [place] To +/-4d .12-2d Anti-reflective Coating Tax - Medical Eye Exam & Treatment Refraction Office/outpatient Visit, [facility] Advance Directives Directive Yes / No Effective Date File Name No Information Encounters Encounter Description Practice Location Reason(s) For Visit Diagnoses Date Provider Providers Copied on Encounter [facility], [address] [place] [address] [address], [place], [place], [id number], [place] tel:[phone] [facility] No Information 0 [facility]. [address], [address], [place], [place], [id number], [place]. tel:[phone] Referring Provider: Santi Barlow, [address], [place], [address]. tel:[phone] pena Provider: No Anderson, [address] [place], [address]. tel:[phone] [facility], [address], [place], [place], [id number], [place] tel:[phone] [facility] No Information -201 0 Yen Eliashil. [address] [place] [address], [address], [place]. tel:[phone] Referring Provider: Santi Barlow, [address] [place] [address], [facility]. tel:[phone] Office/outpa tient Visit, [facility], [address], [place], [place], [id number], [place] tel:[phone] [place] [address] No Information 2-200 9 Yen aSnti. [address] [place] [address], [facility], [place]. tel:[phone] Referring Provider: Santi Barlow, [address] [place] [address], [facility]. tel:[phone] Family History Family Member Type Diagnosis Age At Onset No Information Payers Payer name Insurance type Covered democrat ID Authoriza tion(s) No Information Social History [...]
--- OUTSIDE RECORDS SUMMARY | 2024-09-11 11:15 | XMS_ITS | Patient Health Summary ---
Author Organization [facility] Kwanji Address [address] [place] [address] Care Team Providers Care Irs Agent Name Role Phone Vinny Storm DO Primary Care Provider [phone] Note from [facility] [place][note 2],non-owned Affiliates and Associated Physician Practices is amultiple site organization consisting of ambulatory clinics and hospital sitesin [place], [place], [place] and [place]. This disclosure is being madepursuant to the Care Everywhere program and may not contain all information available regarding this patient. Last updated 18.[facility] Allergies No known active allergies Medications * Be aware that medications may not be up to date on this document. Alwaysverify current medications with the patient. * aspirin (Aspirin) 81 MG chew tablet(Started 09/14/2023) Take 1 (one) tablet by mouth once daily * atorvastatin (Lipitor) 80 MG tablet(Started 09/14/2023) Take 1 (one) tablet by mouth once daily Social History Tobacco Use Types Packs/Day Years Used Date Smoking Tobacco: Never Assessed Sex and Gender Information Value Date Recorded Sex Assigned at Not on file Gender Identity Not on file Sexual Orientation Not on file Last Filed Vital Signs Vital Sign Reading Time Taken Comments Blood Pressure 135/14 09/14/2023 7:00 PM FIRE PROTECTION FABRICATOR Pulse 59 09/14/2023 7:00 PM FIRE PROTECTION FABRICATOR Temperature 37.1 C (98.7 F) 09/14/2023 8:50 AM FIRE PROTECTION FABRICATOR Respiratory Rate 18 09/14/2023 7:00 PM FIRE PROTECTION FABRICATOR Oxygen Saturation 96% 09/14/2023 7:00 PM FIRE PROTECTION FABRICATOR Inhaled Oxygen Concentration - - Weight 82.6 kg (182 lb) 09/14/2023 8:50 AM FIRE PROTECTION FABRICATOR Height 172.7 cm (5' 8 ) 09/14/2023 8:50 AM FIRE PROTECTION FABRICATOR Body Mass Index 27.67 09/14/2023 8:50 AM FIRE PROTECTION FABRICATOR Medical Devices Implanted Type Area Restaurant Floor Manager Device Identifier Shelf Expiration Date Model / Serial / Lot Unknown Aneurysm Coil Unknown Shunt Procedures * CARDIAC EKG ORDER(Performed 09/17/2023) * EKG 12-LEAD(Performed 09/14/2023) Performed for Weakness * CT ANGIO BRAIN NECK STROKE(Performed 09/14/2023) Performed for Weakness * TYPE + SCREEN PANEL(Performed 09/14/2023) * PT-INR [facility](Performed 09/14/2023) * COMPREHENSIVE METABOLIC PANEL(Performed 09/14/2023) * CBC W AUTO DIFFERENTIAL(Performed 09/14/2023) * INR WHOLE BLOOD - POINT OF CARE (IP) STROKE(Performed 09/14/2023) * CREATININE - POCT INTERFACED(Performed 09/14/2023) * CT BRAIN STROKE(Performed 09/14/2023) Performed for Weakness Results * CARDIAC EKG ORDER (09/17/2023 1:38 PM FIRE PROTECTION FABRICATOR) Narrative 09/17/2023 1:38 PM FIRE PROTECTION FABRICATOR Ordered by an unspecified provider. Scanned Document CARDIAC SERVICES ORD ERABLES * EKG 12-LEAD (09/14/2023 9:16 AM FIRE PROTECTION FABRICATOR) Ventricular Rate 69 BPM [facility] Atrial Rate 69 BPM [facility] P-R Interval 190 ms [facility] QRS Duration ms 78 ms [facility] Q-T Interval ms 412 ms [facility] QTC Calculation (Bezet) 441 ms [facility]USE Calculated P [place] 20 degrees [facility] Calculated R [place] 13 degrees [facility] Calculated T [place] 20 degrees [facility] Interpretation EKG NORMAL SINUS RHYTHM INFERIOR INFARCT , AGE UNDETERMINED ABNORMAL ECG NO PREVIOUS ECGS AVAILABLE Confirmed by DEIRDRE BRADSHAW MD ([id number]) on 09/15/2023 4:19:51 PM [facility] MUSE 09/14/2023 9:16 AM FIRE PROTECTION FABRICATOR 09/15/2023 4:19 PM FIRE PROTECTION FABRICATOR Shad Gonzales MD ECG ORDERABLES [facility] * CT ANGIO BRAIN NECK STROKE (09/14/2023 9:15 AM FIRE PROTECTION FABRICATOR) Anatomical Region Laterality Modality Head Computed Tomogra phy 09/14/2023 9:17 AM FIRE PROTECTION FABRICATOR Impressions 09/14/2023 9:34 AM FIRE PROTECTION FABRICATOR IMPRESSION: 1. Severe stenosis of the proximal portion of the M1 segment and diffuse severe narrowing of an M2 segment and its distal branches to the known chronic infarct in the right frontal lobe of the right middle cerebral artery. Mild stenosis of the proximal M1 segment of the left middle cerebral artery. Moderate focal stenosis in the proximal P1 segment of the left posterior cerebral artery. Severe focal stenosis of the V4 segment of the left vertebral artery. These are findings likely due to intracranial atherosclerotic disease. 2. A 7 mm outpouching of the left lateral aspect of the aortic arch, which may represent a penetrating atherosclerotic ulcer. 3. 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 > Interpreting Provider: Juice Hemphill MD on 09/14/2023 9:34 AM Narrative 09/14/2023 9:34 AM FIRE PROTECTION FABRICATOR PROCEDURE: CT ANGIO BRAIN NECK STROKE, DATE/TIME OF EXAM: 09/14/2023 8:47 AM, LOCATION [facility] INDICATION: Code Stroke ADDITIONAL CLINICAL INFORMATION: Ordering Provider Reason For Exam: Technologist Note: Additional: EXAMINATION: 1. Computed tomographic (CT) angiography of the head with contrast 2. CT angiography of the neck with contrast TECHNIQUE: CT angiography of the head and neck was obtained after the uneventful administration of intravenous contrast. Three dimensional postprocessing was performed by the technologist and sent to the workstation for review. CONTRAST: COMPARISON: Comparison is made with a study from earlier today. FINDINGS: Non-angiographic findings: Please refer to the report of a concurrent noncontrasted head CT for detailed intracranial findings. No soft tissue abnormalities are identified in the neck. Moderate multilevel degenerative disc and joint disease is noted in the cervical spine. Angiographic findings: Neck: There is atherosclerotic disease of the aortic arch. There is a 7 mm outpouching of the left lateral aspect of the aortic arch, which may represent a penetrating atherosclerotic ulcer. The left vertebral artery arises directly from the aortic arch. There is scattered atherosclerotic calcification of the innominate and subclavian arteries. There is atherosclerotic disease in the right carotid bifurcation and origin of the right internal carotid artery with less than 50 percent focal stenosis. The right common and internal carotid arteries otherwise appear patent. There is atherosclerotic disease in the left carotid bifurcation and origin of the left internal carotid artery with less than 50 percent focal stenosis. The left common and internal carotid arteries otherwise appear patent. There is atherosclerotic disease in the cervical vertebral arteries without significant focal stenosis. Head: There is atherosclerotic disease involving the distal internal carotid arteries without significant focal stenosis. The anterior cerebral arteries are patent. There is a severe stenosis of the proximal portion of the M1 segment and diffuse severe narrowing of an M2 segment and its distal branches of the right middle cerebral artery. Mild stenosis of the proximal M1 segment of the left middle cerebral artery. Moderate focal stenosis in the proximal P1 segment of the left posterior cerebral artery. There is atherosclerotic disease involving the distal vertebral arteries, causing severe focal stenosis in the V4 segment of the left vertebral artery. The basilar artery is patent patent. 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 Procedure Note Juice Hemphill MD - 09/14/2023 PROCEDURE: CT ANGIO BRAIN NECK STROKE, DATE/TIME OF EXAM: 48:47 AM, LOCATION [facility] INDICATION: Code Stroke ADDITIONAL CLINICAL INFORMATION: Ordering Provider Reason For Exam: Technologist Note: Additional: EXAMINATION: 1. Computed tomographic (CT) angiography of the head with contrast 2. CT angiography of the neck with contrast TECHNIQUE: CT angiography of the head and neck was obtained after the uneventful administration of intravenous contrast. Three dimensional postprocessing was performed by the technologist and sent to the workstation for review. CONTRAST: COMPARISON: Comparison is made with a study from earlier today. FINDINGS: Non-angiographic findings: Please refer to the report of a concurrent noncontrasted head CT for detailed intracranial findings. No soft tissue abnormalities are identified in the neck. Moderate multilevel degenerative disc and joint disease is noted in the cervical spine. Angiographic findings: Neck: There is atherosclerotic disease of the aortic arch. There is a 7 mm outpouching of the left lateral aspect of the aortic arch, which may represent a penetrating atherosclerotic ulcer. The left vertebral artery arises directly from the aortic arch. There is scattered atherosclerotic calcification of the innominate and subclavian arteries. There is atherosclerotic disease in the right carotid bifurcation and origin ofthe right internal carotid artery with less than 50 percent focal stenosis.The right common and internal carotid arteries otherwise appear patent.There is atherosclerotic disease in the left carotid bifurcation and origin of the left internal carotid artery with less than 50 percent focalstenosis. The left common and internal carotid arteries otherwise appear patent. There is atherosclerotic disease in the cervical vertebral arterieswithout significant focal stenosis. Head: There is atherosclerotic disease involving the distal internal carotid arteries without significant focal stenosis. The anterior cerebralarteries are patent. There is a severe stenosis of the proximal portion of theM1 segment and diffuse severe narrowing of an M2 segment and its distal branches of the right middle cerebral artery. Mild stenosis of theproximal M1 segment of the left middle cerebral artery. Moderate focal stenosisin the proximal P1 segment of the left posterior cerebral artery. There is atherosclerotic disease involving the distal vertebral arteries, causing severe focal stenosis in the V4 segment of the left vertebral artery.The basilar artery is patent patent. There is a 3 mm aneurysm of theanterior communicating artery (series 6 image 103). IMPRESSION: 1. Severe stenosis of the proximal portion of the M1 segment and diffuse severe narrowing of an M2 segment and its distal branches to the known chronic infarct in the right frontal lobe of the right middle cerebral artery. Mild stenosis of the proximal M1 segment of the left middle cerebral artery. Moderate focal stenosis in the proximal P1 segment ofthe left posterior cerebral artery. Severe focal stenosis of the V4 segmentof the left vertebral artery. These are findings likely due to intracranial atherosclerotic disease. 2. A 7 mm outpouching of the left lateral aspect of the aortic arch,which may represent a penetrating atherosclerotic ulcer. 3. 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 > Interpreting Provider: Juice Hemphill MD on 09/14/2023 9:34 AM Shad Gonzales MD CT ORDERABLES * PT-INR [facility] (09/14/2023 8:57 AM FIRE PROTECTION FABRICATOR) PT 12.4 12.1 - 14.8 Seconds 09/14/2023 9:42 AM FIRE PROTECTION FABRICATOR [facility] INR 1.0 See Comment 09/14/2023 9:42 AM FIRE PROTECTION FABRICATOR [facility] Comment:The suggested therap eutic range for standard coumadin (warfarin) therapy is an INR of 2.0-3.0. For high-risk patients (Mechanical Mitral Valve Prosthesis, etc.), the suggested prophylactic therapeutic range is an INR of 2.5-3.5. Blood BLOOD SPECIMEN / Unknown Venipuncture / Unknown 09/14/2023 8:57 AM FIRE PROTECTION FABRICATOR 09/14/2023 8:59 AM FIRE PROTECTION FABRICATOR Shad Gonzales MD LAB - COAGULATION OR DERABLES Performing Organization Address [facility]/ZIP Co de Phone Number [facility] [address] [place] [id number], [facility] [phone] * TYPE + SCREEN PANEL (09/14/2023 8:57 AM FIRE PROTECTION FABRICATOR) Pathologist [facility] Antibody Screen NEG 9:43 AM [facility] ABO Rh O POS 09/14/2023 9:43 AM [facility] Blood Bank BLOOD SPECIMEN / Unknown Venipuncture / Unknown 09/14/2023 8:57 AM FIRE PROTECTION FABRICATOR 09/14/2023 9:00 AM FIRE PROTECTION FABRICATOR Shad Gonzales MD LAB - BLOOD BANK ORD ERABLES Performing Organization Address [facility] Co de Phone Number [facility] [address] [place] [phone], [facility] [phone] * CBC W AUTO DIFFERENTIAL (09/14/2023 8:57 AM FIRE PROTECTION FABRICATOR) Pathologist [facility] WBC 7.2 4.0 - 10.7 x10E9/L 09/14/2023 9:11 AM [facility] RBC Count 4.18 3.90 - 5.20 x10E12/L 09/14/2023 9:11 AM [facility] Hemoglobin 13.0 11.9 - 15.8 g/dL 09/14/2023 9:11 AM [facility] Hematocrit 38.3 34.8 - 46.1 % 09/14/2023 9:11 AM [facility] MCV 91.6 80.0 - 98.0 fL 09/14/2023 9:11 AM [facility] MCH 31.1 26.7 - 33.6 pg 09/14/2023 9:11 AM [facility] MCHC 33.9 31.7 - 36.3 g/dL 09/14/2023 9:11 AM [facility] RDW-CV 13.0 11.3 - 14.8 % 09/14/2023 9:11 AM [facility] Platelet Count 290 150 - 420 x10E9/L 09/14/2023 9:11 AM [facility] MPV 10.8 7.8 - 11.4 fL 09/14/2023 9:11 AM [facility] Neutrophil % 58.4 41.0 - 74.0 % 09/14/2023 9:11 AM [facility] Lymphocyte % 29.1 17.0 - 47.0 % 09/14/2023 9:11 AM [facility] Monocyte % 7.7 3.0 - 11.0 % 09/14/2023 9:11 AM [facility] Eosinophil % 3.8 0.0 - 7.0 % 09/14/2023 9:11 AM [facility] Basophil % 0.7 0.0 - 1.6 % 09/14/2023 9:11 AM [facility] Immature Granulocytes % 0.3 0.0 - 1.0 % 09/14/2023 9:11 AM [facility] Neutrophil Absolute 4.20 1.60 - 7.50 x10E9/L 09/14/2023 9:11 AM [facility] Lymphocyte Absolute 2.09 1.00 - 4.40 x10E9/L 09/14/2023 9:11 AM [facility] Monocyte Absolute 0.55 0.15 - 1.00 x10E9/L 09/14/2023 9:11 AM [facility] Eosinophil Absolute 0.27 0.00 - 0.60 x10E9/L 09/14/2023 9:11 AM [facility] Basophil Absolute 0.05 0.00 - 0.13 x10E9/L 09/14/2023 9:11 AM [facility] Blood BLOOD SPECIMEN / Unknown Venipuncture / Unknown 09/14/2023 8:57 AM [facility] 09/14/2023 9:01 AM [facility] Shad Gonzales MD LAB - HEMATOLOGY ORD ERABLES [facility] [address] [place] [address] [phone] * (ABNORMAL) COMPREHENSIVE METABOLIC PANEL (09/14/2023 8:57 AM [facility]) BUN 16 7 - 26 mg/dL 09/14/2023 9:31 AM [facility] Creatinine 0.73 0.56 - 0.96 mg/dL 09/14/2023 9:31 AM [facility] Sodium 139 136 - 145 mmol/L 09/14/2023 9:31 AM [facility] Potassium 4.0 3.5 - 4.5 mmol/L 09/14/2023 9:31 AM [facility] Chloride 106 98 - 107 mmol/L 09/14/2023 9:31 AM [facility] CO2 26 22 - 29 mmol/L 09/14/2023 9:31 AM [facility] Glucose 126(H) 70 - 115 mg/dL 09/14/2023 9:31 AM [facility] Calcium 9.4 8.4 - 10.2 mg/dL 09/14/2023 9:31 AM [facility] Protein Total 6.7 6.0 - 8.3 g/dL 09/14/2023 9:31 AM [facility] Albumin 3.8 3.4 - 5.0 g/dL 09/14/2023 9:31 AM [facility] Bilirubin Total 0.4 0.2 - 1.2 mg/dL 09/14/2023 9:31 AM [facility] Alkaline Phosphatase 121 40 - 150 U/L 09/14/2023 9:31 AM [facility] ALT 12 5 - 55 U/L 09/14/2023 9:31 AM [facility] AST 10 5 - 34 U/L 09/14/2023 9:31 AM [facility] Anion Gap 7 6 - 16 09/14/2023 9:31 AM [facility] BUN/Creatinine Ratio 22 7 - 23 09/14/2023 9:31 AM [facility] Osmolality Calculated 291 275 - 295 mOsm/kg 09/14/2023 9:31 AM [facility] Albumin/Globulin Ratio 1.3 1.1 - 2.3 09/14/2023 9:31 AM [facility] eGFR by CKD-EPI 87(L) >=90 mL/min/1.7 3 m2 09/14/2023 9:31 AM [facility] Blood BLOOD SPECIMEN / Unknown Venipuncture / Unknown 09/14/2023 8:57 AM FIRE PROTECTION FABRICATOR 09/14/2023 9:01 AM FIRE PROTECTION FABRICATOR Shad Gonzaels MD LAB - CHEMISTRY [facility] [address] [address], [place] [phone] * INR WHOLE BLOOD - POINT OF CARE (IP) STROKE (09/14/2023 8:54 AM FIRE PROTECTION FABRICATOR) INR 1.0 0.9 - 1.2 09/14/2023 8:57 AM [facility] Device [id number] 09/14/2023 8:57 AM [facility] Grain Grader ID [id number] 09/14/2023 8:57 AM [facility] Blood BLOOD SPECIMEN / Unknown 09/14/2023 8:54 AM FIRE PROTECTION FABRICATOR 09/14/2023 8:57 AM FIRE PROTECTION FABRICATOR Provider Unknown LAB - POINT OF CARE ORDERABLES [address] [address], [place] [phone] * CREATININE - POCT INTERFACED (09/14/2023 8:53 AM FIRE PROTECTION FABRICATOR) Creatinine POCT 0.48 0.30 - 1.30 mg/dL 09/14/2023 8:57 AM [facility] eGFR >90 >90 mL/min/1.7 3 m2 09/14/2023 8:57 AM FIRE PROTECTION FABRICATOR [facility] Blood BLOOD SPECIMEN / Unknown 09/14/2023 8:53 AM FIRE PROTECTION FABRICATOR 09/14/2023 8:57 AM FIRE PROTECTION FABRICATOR Provider Unknown LAB - POINT OF CARE ORDERABLES [facility] [address] [place] [address], [facility] [phone] * CT BRAIN - Stroke (09/14/2023 8:52 AM FIRE PROTECTION FABRICATOR) Anatomical Region Laterality Modality Head Computed Tomogra phy 09/14/2023 8:51 AM FIRE PROTECTION FABRICATOR Impressions 09/14/2023 8:56 AM FIRE PROTECTION FABRICATOR IMPRESSION: 1. No acute intracranial hemorrhage. 2. Chronic small vessel ischemic disease of the brain with cerebral volume loss. 3. 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 4. Right frontal approach ventriculoperitoneal shunt catheter terminating in the right lateral ventricle. Status post aneurysm coiling. These findings were discussed in detail with the patient's care provider, Dr. Anne by Dr. Hemphill via telephone at 8:55 AM on 09/14/2023 with readback comprehension and verification. > Interpreting Provider: Juice Hemphill MD on 09/14/2023 8:56 AM Narrative 09/14/2023 8:56 AM FIRE PROTECTION FABRICATOR PROCEDURE: CT BRAIN STROKE, DATE/TIME OF EXAM: 09/14/2023 8:52 AM, LOCATION [facility] INDICATION: Code Stroke ADDITIONAL CLINICAL INFORMATION: Ordering Provider Reason For Exam: Technologist Note: Additional: TECHNIQUE: CT of the head was performed without contrast according to standard protocol. CONTRAST: COMPARISON: No prior study is available for comparison at the time of this dictation. FINDINGS: The right frontal approach ventricular catheter is noted, terminating in the right lateral ventricle against the septum pellucidum. An aneurysm coil with significant beam hardening and streaky artifacts in the left anterior cranial fossa. No acute intracranial hemorrhage or intra- or extra-axial fluid collections are identified. There is moderate cerebral volume loss with associated ex vacuo ventricular dilatation. The basal cisterns are patent. No mass effect or midline shift is seen. Moderate periventricular white matter hypoattenuation is nonspecific, but can be seen in the setting of chronic small vessel ischemic disease. There is atherosclerotic calcification of the carotid siphons. A large encephalomalacia is noted in the right frontal lobe and anterior basal ganglia, likely representing a chronic infarct. The visualized portions of the orbits, paranasal sinuses, and mastoids appear normal. No acute calvarial fracture is identified. Procedure Note Juice Hemphill MD - 09/14/2023 PROCEDURE: CT BRAIN STROKE, DATE/TIME OF EXAM: 09/14/2023 8:52 AM, LOCATION [facility] INDICATION: Code Stroke ADDITIONAL CLINICAL INFORMATION: Ordering Provider Reason For Exam: Technologist Note: Additional: TECHNIQUE: CT of the head was performed without contrast according to standard protocol. CONTRAST: COMPARISON: No prior study is available for comparison at the time ofthis dictation. FINDINGS: The right frontal approach ventricular catheter is noted, terminating in the right lateral ventricle against the septum pellucidum. An aneurysmcoil with significant beam hardening and streaky artifacts in the leftanterior cranial fossa. No acute intracranial hemorrhage or intra- or extra-axial fluidcollections are identified. There is moderate cerebral volume loss with associatedex vacuo ventricular dilatation. The basal cisterns are patent. No masseffect or midline shift is seen. Moderate periventricular white matter hypoattenuation is nonspecific, but can be seen in the setting ofchronic small vessel ischemic disease. There is atherosclerotic calcification of the carotid siphons. A large encephalomalacia is noted in the rightfrontal lobe and anterior basal ganglia, likely representing a chronic infarct. The visualized portions of the orbits, paranasal sinuses, and mastoids appear normal. No acute calvarial fracture is identified. IMPRESSION: 1. No acute intracranial hemorrhage. 2. Chronic small vessel ischemic disease of the brain with cerebralvolume loss. 3. 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 4. Right frontal approach ventriculoperitoneal shunt catheterterminating in the right lateral ventricle. Status post aneurysm coiling. These findings were discussed in detail with the patient's careprovider, Dr. Anne by Dr. Hemphill via telephone at 8:55 AM on 09/14/2023 with readback comprehension and verification. > Interpreting Provider: Juice Hemphill MD on 09/14/2023 8:56 AM Shad Gonzales MD CT ORDERABLES Care Teams Irs Agent Relationship Specialty Start Date End Date Vinny Storm DO [address] [place] [address] PCP - General Internal Medicine 09/14/23
--- OUTSIDE RECORDS SUMMARY | 2024-09-11 11:15 | XMS_ITS | Referral Summary ---
Author Organization [facility] Address [address] [place] [address] Care Team Providers Care Circular Clerk Name Role Phone Vinny Storm DO Primary Care Provider [phone] Source Comments [facility],non-owned Affiliates and Associated Physician Practices is amultiple site organization consisting of ambulatory clinics and hospital sitesin [place], [place], [place] and [place]. This disclosure is being madepursuant to the Care Everywhere program and may not contain all information available regarding this patient. Last updated 18.[facility] Allergies No known active allergies Medications * [...] Comments Blood Pressure 135/14 09/14/2023 7:00 PM MICROBIOLOGY LAB MANAGER Pulse 59 09/14/2023 7:00 PM MICROBIOLOGY LAB MANAGER Temperature 37.1 C (98.7 F) 09/14/2023 8:50 AM MICROBIOLOGY LAB MANAGER Respiratory Rate 18 09/14/2023 7:00 PM MICROBIOLOGY LAB MANAGER Oxygen Saturation 96% 09/14/2023 7:00 PM MICROBIOLOGY LAB MANAGER Inhaled Oxygen Concentration - - Weight 82.6 kg (182 lb) 09/14/2023 8:50 AM MICROBIOLOGY LAB MANAGER Height 172.7 cm (5' 8 ) 09/14/2023 8:50 AM MICROBIOLOGY LAB MANAGER Body Mass Index 27.67 09/14/2023 8:50 AM MICROBIOLOGY LAB MANAGER Plan of Treatment Not on file Medical Devices Implanted Type Area Boardinghouse Keeper Device Identifier Shelf Expiration Date Model / Serial / Lot Unknown Aneurysm Coil Unknown Shunt Care Teams Circular Clerk Relationship Specialty Start Date End Date Vinny Storm DO [address] [place] [address] PCP - General Internal Medicine 09/14/23
[2024-09-11] MEDS: levETIRAcetam 1000MG/NACL100ML 1,000 MG/100 ML BAG 400 MG IVPB (11:27)
[2024-09-11 11:44] LABS: Basophils Absolute Auto 0.1 K/mm3 (0.0-0.1); Basophils Percent Auto 0.5 % (0.2-1.2); Eosinophils Absolute Auto 0.2 K/mm3 (0-0.3); Eosinophils Percent Auto 1.8 % (0-4.4); Hematocrit 41.3 % (37.0-47.0); Hemoglobin 13.6 g/dL (12.0-15.0); Immature Granulocyte Absolute 0.04 K/mm3 (0.00-0.031); Immature Granulocyte Percent A 0.4 % (0-0.5); Lymphocytes Absolute Auto 1.59 K/mm3 (0.9-3.2); Lymphocytes Percent Auto 16.7 % (18.3-44.2); Mean Corpuscular HGB Conc 32.9 g/dl (32-36); Mean Corpuscular Hemoglobin 30.6 pg (26-34); Monocytes Absolute Auto 0.5 K/mm3 (0.1-0.6); Monocytes Percent Auto 5.3 % (2.6-8.5); Neutrophils Absolute Auto 7.2 K/mm3 (1.3-6.7); Neutrophils Percent Auto 75.3 % (45.5-73.1); Platelet Count Result 290 k/mm3 (150-375); Red Blood Count 4.44 M/mm3 (4.2-5.4); Red Cell Distribution Width 12.7 % (11.5-14.5); White Blood Count 9.5 K/mm3 (4.5-10.0)
--- NOTE | 2024-09-11 11:44 | ED.SEIZURE ---
HPI - Seizure General Chief Complaint: Seizure Stated Complaint: seizure Time Seen by Provider: 09/11/24 10:46 Source: patient and EMS Mode of arrival: EMS Limitations: altered mental status History of Present Illness HPI Narrative: This is a 74-year-old female that presents to the emergency department after 2 seizures this morning at her facility. Patient has known history of seizure disorder. She is still a little postictal/confused at this time. She does not have any complaints. Patient did receive one of her anti epileptics this morning. Did not receive all of her Keppra oral solution. Seizure History: Yes Related Data Home Medications ?Medication ?Instructions ?Recorded ?Confirmed ?Last Taken ?Type polyethylene glycol 3350 17 See Rx Instructions .Route .COMPLEX 09/01/19 07/08/24 Unknown History gram/dose oral powder (Miralax) Allergies Allergy/AdvReac Type Severity Reaction Status Date / Time codeine Allergy Unknown Hives Verified 07/08/24 10:14 Review of Systems Review of Systems: ROS unobtainable: Yes unobtainable due to mental status (history of dementia) [facility] Past Medical History Medical History Unspecified convulsions Other sequelae following nontraumatic subarachnoid hemorrhage Other cerebrovascular disease Vascular dementia, unspecified severity, without behavioral disturbance, psychotic disturbance, mood disturbance, and anxiety Anemia History of stroke with residual deficit Aneurysm Shunt, 2002 Stroke Melanoma Arthritis Seizures HLD (hyperlipidemia) HTN (hypertension) Family History Family History Father Family history of heart disease in male family member before age 55 Family history of cardiovascular disease Hypertension Mother Cerebrovascular accident Social History Social History Smoking status: Former smoker Tobacco type: cigarettes Alcohol intake: never Substance use: never Do You Feel Safe in your Home?: Yes Lack of Transportation: No Lack of Food: Never True Current Housing: I Have Housing Concerned About Future Housing: No Difficulty Paying Gas/Electric Bills: No Difficulty Paying for Meds: No Currently Unemployed: No Education: High School Diploma/GED Difficulty w/ Childcare or Family Care: No Living arrangements: retirement Additional living arrangements comments: [facility] Exam Narrative: GENERAL: Well-appearing, well-nourished, and in no acute distress. HEAD: Normocephalic, atraumatic. EYES: PERRLA and EOMI. ENT: Nares clear, no rhinorrhea or epistaxis. Mucous membranes moist. Oropharynx without tonsillar hypertrophy exudate or other lesions. Bilateral TMs pearly cooper non-bulging NECK: Supple. No adenopathy or masses. CHEST: Clear to auscultation. No respiratory distress. No wheezes rales or rhonchi HEART: Regular rate and rhythm. No murmur heard. Normal peripheral pulses. ABDOMEN: Soft, nontender, nondistended, normal active bowel sounds. EXTREMITIES: Normal range of motion. No edema. SKIN: Warm, dry, no rash. NEURO: No focal deficits noted. Alert and oriented x1. Patient will follow some commands, but not all making neurologic exam difficult PSYCH: Normal mood and affect Course Course Emergency Course: Patient updated. Resting comfortably. Does seem more alert. Vital Signs Vital signs: Vital Signs Temperature 97.6 F 09/11/24 10:49 Pulse Rate 67 09/11/24 10:49 Respiratory Rate 16 09/11/24 10:49 Blood Pressure 143/71 H 09/11/24 10:49 Pulse Oximetry 100 09/11/24 10:49 Temperature 97.7 F 09/11/24 13:00 Pulse Rate 63 09/11/24 13:00 Respiratory Rate 16 09/11/24 13:00 Blood Pressure 115/63 09/11/24 13:00 Pulse Oximetry 98 09/11/24 13:00 MDM - Seizure MDM Narrative Medical decision making narrative: Patient presents to the emergency department from her facility for 2 seizures this morning. Patient is afebrile and nontoxic appearing. Her vitals are stable. She is pleasantly confused, although does have history of dementia. She has had no further seizures in the ER. She was given a g of Keppra IV. No concerning findings on her blood work or urine. COVID, influenza and RSV screens are negative. CT brain with chronic findings. Chest x-ray without acute cardiopulmonary abnormality. Patient updated. Resting comfortably. Does seem more alert. We attempted multiple times to get ahold of her daughter without success. Patient will be discharged back to her facility. Differential Diagnosis Differential diagnosis: Likely focal seizure, generalized seizure and epileptic seizure Lab Data Attestation: I reviewed the patient's lab results. 09/11/24 11:31 09/11/24 11:31 Labs: Lab Results 09/11/24 09/11/24 Range/Units 11:31 12:18 WBC 9.5 (4.5-10.0) K/mm3 RBC 4.44 (4.2-5.4) M/mm3 Hgb 13.6 (12.0-15.0) g/dL Hct 41.3 (37.0-47.0) % MCV 93.0 (80-100) fl MCH 30.6 (26-34) pg MCHC 32.9 (32-36) g/dl RDW 12.7 (11.5-14.5) % Plt Count 290 (150-375) k/mm3 MPV 11.0 H (7.4-10.4) fl Immature Gran % (Auto) 0.4 (0-0.5) % Neut % (Auto) 75.3 H (45.5-73.1) % Lymph % (Auto) 16.7 L (18.3-44.2) % Williams % (Auto) 5.3 (2.6-8.5) % Eos % (Auto) 1.8 (0-4.4) % Baso % (Auto) 0.5 (0.2-1.2) % Lymph # (Auto) 1.59 (0.9-3.2) K/mm3 Williams # (Auto) 0.5 (0.1-0.6) K/mm3 Eos # (Auto) 0.2 (0-0.3) K/mm3 Baso # (Auto) 0.1 (0.0-0.1) K/mm3 Abs Immat Gran (auto) 0.04 H (0.00-0.031) K/mm3 Absolute Neuts (auto) 7.2 H (1.3-6.7) K/mm3 Absolute Nucleated RBC 0.000 (0.0-0.012) K/mm3 Nucleated RBC % 0.0 (0.0-0.2) % Sodium 139 (137-145) mmol/L Potassium 4.0 (3.4-5.0) mmol/L Chloride 99 (98-107) mmol/L Carbon Dioxide 29 (22-30) mmol/L Anion Gap 11 (4-12) mmol/L BUN 11 D (7-17) mg/dL Creatinine 0.52 L (0.7-1.0) mg/dL Estim Creat Clear Calc 78 ml/min Estimated GFR > 60 (59 - ) Glucose 135 H (65-110) mg/dL Calcium 9.6 (8.4-10.2) mg/dL Total Bilirubin 0.6 (0.2-1.3) mg/dL AST 21 (14-36) U/L ALT 18 (6-35) U/L Alkaline Phosphatase 143 H (38-126) U/L Total Protein 7.0 (6.3-8.2) g/dL Albumin 4.5 (3.5-5.1) g/dL Urine Color Yellow (Yellow) Urine Appearance Clear (Clear) Urine pH 8.0 (5.0-9.0) Ur Specific [place] 1.007 (1.001-1.035) Urine Protein 1+ H (Negative) mg/dL Urine Glucose (UA) Negative (Negative) mg/dL Urine Ketones Negative (Negative) mg/dL Ur Blood (Man) Negative (Negative) Urine Nitrate Negative (Negative) Urine Bilirubin Negative (Negative) Urine Urobilinogen 0.2 (<2.0) mg/dL Add Ur Microanalysis Reviewed Leukocyte Esterase Rfl Negative (Negative) IRAIS/UL Urine RBC 0-2 (0-2) /hpf Urine WBC 0-5 (0-3) /hpf Ur Squamous Epith Cells None seen (Few) /hpf Urine Bacteria 4+ H /hpf Urine Casts 0-2 Influenza A (RT-PCR) Negative (Negative) Influenza B (RT-PCR) Negative (Negative) RSV (RT-PCR) Negative (Negative) SARS-CoV-2 RNA (RT-PCR) Negative (Negative) Imaging Data Radiologist's impression: ITS Impressions Head CT 09/11/24 11:28 IMPRESSION: 1. Chronic encephalomalacia in the right frontal lobe and right insula, likely sequela of old infarct. No acute intracranial process. 2. Age-related changes including mild diffuse volume loss and extensive nonspecific cerebral white matter hypoattenuation consistent with chronic small vessel ischemic disease. 3. Unchanged right frontal ventricular drain with distal tip at the caval septum pellucidum. 4. Likely embolization coils in the anterior inferior left frontal lobe. Chest X-Ray 09/11/24 11:32 Impression: 1: No acute cardiopulmonary disease. ECG Data EKG #1: ECG completion date: 09/11/24 EKG Interpretation: bradycardia, sinus rhythm, no ST changes and normal QT Critical Care Time Critical Care Time Critical Care Time: No Discharge Plan Discharge Clinical Impression: Seizure disorder Patient Disposition: SC Halfway/Asst Living Condition: Stable Instructions: Epilepsy (ED) Additional Instructions: Return to the emergency department if you experience fever, chest pain, shortness of breath, abdominal pain with nausea and vomiting, weakness, numbness, or any other symptoms that are concerning to you. Continue your seizure medications as prescribed Follow up with your neurologist Patient Language: Lithuanian Prescriptions: No Action polyethylene glycol 3350 [Miralax] 17 gram/dose powder See Rx Instructions .ROUTE .COMPLEX Rx Instructions: Take (17G) by oral route everyday mixed with 8oz. water, juice, soda, coffee or tea; escitalopram oxalate [Lexapro] 10 mg tablet 10 mg PO DAILY Qty: 30 7RF calcium carbonate-vitamin D3 600 mg(1,500mg) -400 unit tablet See Rx Instructions .ROUTE .COMPLEX Qty: 180 3RF Dose Instruction: TAKE 1 TABLET BY MOUTH EVERY MORNING AND BEDTIME Rx Instructions: TAKE 1 TABLET BY MOUTH EVERY MORNING AND BEDTIME potassium chloride 20 mEq/15 mL liquid 10 meq PO DAILY Qty: 1200 2RF clopidogrel [Plavix] 75 mg tablet 75 mg PO .COMPLEX Qty: 90 2RF Rx Instructions: 75 mg PO daily in the am; *CAN BE CRUSHED* furosemide 40 mg tablet See Rx Instructions .ROUTE .COMPLEX Qty: 90 2RF Rx Instructions: Take 1 tablet by mouth every morning at 8am ; *CAN BE CRUSHED* levetiracetam 100 mg/mL solution See Rx Instructions .ROUTE .COMPLEX Qty: 750 3RF Rx Instructions: Increase dose to 15ml in the morning and 10ml at bedtime. lisinopril 5 mg tablet 5 mg PO DAILY Qty: 90 2RF Rx Instructions: *CAN BE CRUSHED* memantine 10 mg tablet 10 mg PO BID Qty: 180 2RF Rx Instructions: *CAN BE CRUSHED* simvastatin 20 mg tablet 20 mg PO .Daily in the Evening Qty: 90 2RF Rx Instructions: *CAN BE CRUSHED* phenytoin 50 mg tablet,chewable 100 mg PO TID Qty: 540 1RF Follow-up/Referrals: Vinny Storm DO [Primary Care Provider] - Stand Alone Forms: Skilled Nursing Discharge
[2024-09-11 12:00] VITALS: BP 122/65; PULSE 66; RESP 16; TEMP 36.4; O2SAT 98
[2024-09-11 12:03] LABS: Alanine Aminotransferase 18 U/L (6-35); Albumin Level 4.5 g/dL (3.5-5.1); Alkaline Phosphatase 143 U/L (38-126); Anion Gap 11 mmol/L (4-12); Aspartate Amino Transferase 21 U/L (14-36); Bilirubin,Total 0.6 mg/dL (0.2-1.3); Blood Urea Nitrogen 11 mg/dL (7-17); Calcium 9.6 mg/dL (8.4-10.2); Carbon Dioxide 29 mmol/L (22-30); Chloride 99 mmol/L (98-107); Estimated CRCL calculation 78 ml/min; Estimated Glomerular Filt Rate > 60; Glucose 135 mg/dL (65-110); Sodium 139 mmol/L (137-145)
[2024-09-11 12:21] LABS: Influenza A QL RT-PCR Negative (Negative); Influenza B QL RT-PCR Negative (Negative); RSV RNA, RT-PCR Negative (Negative); SARS-CoV-2 RNA PCR Negative (Negative)
[2024-09-11 12:42] LABS: Add Urine Microscopic? YES; Appearance Urine Clear (Clear); Bacteria Urine 4+ /hpf; Bilirubin Urine Negative (Negative); Blood Urine Negative (Negative); Color Urine Yellow (Yellow); Glucose Urine UA Negative (Negative); Ketones Urine Negative (Negative); Leukocyte Esterase Ur Negative LEU/UL (Negative); Need Manual Microscopic Reviewed; Nitrate Urine Negative (Negative); Non Pathogenic Casts 0-2; Protein Urine 1+ mg/dL (Negative); RBC Urine 0-2 /hpf (0-2); Specific Grav Ur 1.007 (1.001-1.035); Squamous Epithelial Cell Urine None Seen /hpf (Few); Urobilinogen Urine 0.2 mg/dL (<2.0); WBC Urine 0-5 /hpf (0-3)
[2024-09-11 13:00] VITALS: BP 115/63; PULSE 63; RESP 16; TEMP 36.5; O2SAT 98
[2024-09-11 14:00] VITALS: BP 136/70; PULSE 62; RESP 16; TEMP 36.6; O2SAT 100
== END 2024-09-11 17:38 ==
PROVIDERS: Emergency Provider Physician Assistant; PCP Internal Medicine
DX: G40.909 Epilepsy, unspecified, not intractable, without status epilepticus (principal); Z20.822 Contact with and (suspected) exposure to COVID-19; F01.50 Vascular dementia, unspecified severity, without behavioral disturbance, psychotic disturbance, mood disturbance, and anxiety; E78.5 Hyperlipidemia, unspecified; I10 Essential (primary) hypertension; I69.098 Other sequelae following nontraumatic subarachnoid hemorrhage; Z85.820 Personal history of malignant melanoma of skin; Z87.891 Personal history of nicotine dependence; G93.89 Other specified disorders of brain; R00.1 Bradycardia, unspecified
CPT/HCPCS: 36415; 70450; 71045; 80053; 81001; 85025; 87637; 93005; 96374; 99284; J1953

== ENCOUNTER 2024-10-31 08:49 | Observation (INO) | payer OTHER, SELFPAY ==
[2024-10-31] VITALS (27 sets, daily range): BP systolic 111–155; BP diastolic 51–86; PULSE 60–83; RESP 11–20; TEMP 36.6–36.9; O2SAT 94–100; BMI 22.9
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
--- NOTE | ~2024-10-31 | CT_ITS ---
EXAM: CT brain wo con - 10/31/2024 10:32 CDT History: 74 years old Female with Seizure disorder COMPARISON: 09/11/2024 PROCEDURE: CT of the head without contrast. Axial, sagittal and coronal reformatted planes were nani luated. Automatic exposure control was used for this study. FINDINGS: No interval change since 09/11/2024. Moderate-sized encephalomalacia in the left frontal lobe is again seen. Metallic streak artifact from embolization coils in the anterior-inferior left frontal lobe, a gain noted. Right frontal ventricular drainage catheter extending through the anterior horn of the ri ght lateral ventricle with its distal tip in the cavum septum pellucidum, unchanged. No acute intracranial hemorrhage, acute infarction or abnormal extra-axial fluid collection. Extensiv e scattered white matter hypoattenuation consistent with chronic small vessel ischemic changes. Symme tric mild increased prominence of sulci and ventricles consistent with [id number] age inappropr iate diffuse cerebral volume loss. No mass or mass effect. The orbits paranasal sinuses and mastoid a ir cells are clear. IMPRESSION: No interval change since 09/11/2024. No evidence of acute intracranial hemorrhage. Reviewed, dictated and finalized at location A. IMPRESSION: No interval change since 09/11/2024. No evidence of acute intracranial hemorrhag e.
--- NOTE | 2024-10-31 09:04 | ECG_ITS ---
Test Date: 2024-10-31 09:08:32 Measurements Intervals [place] Rate: 77 P: 55 ME: 194 QRS: 13 QRSD: 86 T: 27 QT: 392 QTc: 445 Interpretive Statements SINUS RHYTHM POSSIBLE RIGHT VENTRICULAR CONDUCTION DELAY CONSIDER INFERIOR INFARCT, AGE INDETERMINATE BASELINE ARTIFACT- I, II, III, AVR, AVL, AVF, V1-V6 ABNORMAL ECG Compared to ECG 09/11/2024 13:38:41 NO SIGNIFICANT CHANGE Electronically Signed On 10-31-2024 09:21:09 CDT by Elia Kelley D.O.
--- OUTSIDE RECORDS SUMMARY | 2024-10-31 09:15 | XMS_ITS | Clinical Summary ---
Author Organization [facility] Address [address] [place] [address] Care Team Providers Care Court Usher Name Role Phone Vinny Storm DO Primary Care Provider [phone] Source Comments [employer] [facility],non-owned Affiliates and Associated Physician Practices is amultiple site organization consisting of ambulatory clinics and hospital sitesin [place], [place], [place] and [place]. This disclosure is being madepursuant to the Care Everywhere program and may not contain all information available regarding this patient. Last updated 18.[employer] Allergies No known active allergies Medications * [...] Comments Blood Pressure 135/14 09/14/2023 7:00 PM RESTORATIVE REHAB AIDE Pulse 59 09/14/2023 7:00 PM RESTORATIVE REHAB AIDE Temperature 37.1 C (98.7 F) 09/14/2023 8:50 AM RESTORATIVE REHAB AIDE Respiratory Rate 18 09/14/2023 7:00 PM RESTORATIVE REHAB AIDE Oxygen Saturation 96% 09/14/2023 7:00 PM RESTORATIVE REHAB AIDE Inhaled Oxygen Concentration - - Weight 82.6 kg (182 lb) 09/14/2023 8:50 AM RESTORATIVE REHAB AIDE Height 172.7 cm (5' 8 ) 09/14/2023 8:50 AM RESTORATIVE REHAB AIDE Body Mass Index 27.67 09/14/2023 8:50 AM RESTORATIVE REHAB AIDE Plan of Treatment Health Maintenance Due Date Last Done Comments BONE DENSITY TESTING 1950 COLOGUARD (AGES 45-75) - COL ON CA SCREENING 1950 COLON MONITORING 1951 COLONOSCOPY - COLON CA SCREENING 1951 CT COLONOGRAPHY - COLON CA SCREENING 1950 Colorectal Cancer Screening 1950 FIT - COLON CA SCREENING 1950 FLEX SIG - COLON CA SCREENING 1950 MAMMOGRAM 1950 MEDICARE AWV 12 MONTHS 1950 HEPATITIS C SCREENING 02/07/1969 DTAP/TDAP/TD VACCINES (1 - Tdap) 1970 PNEUMOCOCCAL VACCINE 50+ (1 of 1 - PCV) 2001 ZOSTER VACCINE (1 of 2) 2001 COVID-19 VACCINE (1 - 2023-2 5 season) 2024 DEPRESSION SCREENING 07/23/2024 MEDICARE AWV CALENDAR YEAR 2024 INFLUENZA VACCINE (Season Ended) 2025 Respiratory Syncytial Virus (RSV) Vaccine Pt: or over 60 yrs (1 - 1-dose 75+ series) 2026 HEPATITIS B VACCINE Aged Out No longe r eligible based on patient's age to complete this topic HIB VACCINE Aged Out No longer eligi ble based on patient's age to complete this topic HPV VACCINE Aged Out No longer eligi ble based on patient's age to complete this topic MENINGOCOCCAL (Group B) VACC INE SHARED DECISION-MAKING Aged Out No longer eligibl e based on patient's age to complete this topic MENINGOCOCCAL GROUPS A/C/Y/W VACCINE Aged Out No longer eligible b ased on patient's age to complete this topic Medical Devices Implanted Type Area Food Safety Officer Device Identifier Shelf Expiration Date Model / Serial / Lot Unknown Aneurysm Coil Unknown Shunt Care Teams Court Usher Relationship Specialty Start Date End Date Vinny Storm DO [address] [place] [address] PCP - General Internal Medicine 09/14/23
--- OUTSIDE RECORDS SUMMARY | 2024-10-31 09:15 | XMS_ITS | Continuity of Care Document ---
Author Organization [facility] Address [address] [place] [address] Phone Care Team Providers Care Farmer General Name Role Phone [facility] Unavailable Unavail able No Anderson Unavailable Unavailable Procedures Procedure Date Vision Svcs Frames Purchases BF Polycarb Sphcyl Meade To +/-4d .12-2d Anti-reflective Coating Tax - Medical Eye Exam & Treatment Refraction Office/outpatient Visit, [facility] Advance Directives Directive Yes / No Effective Date File Name No Information Encounters Encounter Description Practice Location Reason(s) For Visit Diagnoses Date Provider Providers Copied on Encounter [facility], [address] [place] [address] [address], [place], [place], [id number], [place] tel:[phone] [facility] No Information 0 [facility]. [address], [address], [place], [place], [id number], [place]. tel:[phone] Referring Provider: Santi Barlow, [address] [facility] [address], [place], [address]. tel:[phone] pena Provider: No Anderson, [address] [place], [address]. tel:[phone] [facility], [address], [place], [place], [id number], [place] tel:[phone] [facility] No Information -201 0 Yen Eliashil. [address] [place] [address], [address], [place]. tel:[phone] Referring Provider: Santi Barlow, [address] [place] [address], [facility]. tel:[phone] Office/outpa tient Visit, [facility], [address], [place], [place], [id number], [place] tel:[phone] [place] [address] No Information 2-200 9 Yen Santi. [address] [place] [address], [facility], [place]. tel:[phone] Referring Provider: Santi Barlow, [address] [place] [address], [facility]. tel:[phone] Family History Family Member Type Diagnosis Age [...]
--- OUTSIDE RECORDS SUMMARY | 2024-10-31 09:15 | XMS_ITS ---
Author Name HarrietJae bernsteinciro Durant Address [address] [facility] [address] [place] [address] Phone [phone] [facility] Address [address] [place] [address] Phone [phone] Care Team Providers Care Brimmer Blocker Name Role Phone Jae Nunezciro Durant Unavailable Digna Shukla Unavailable [phone] Functional Status No Results Mental Status No Results Allergies and Intolerances Name Onset Date Reaction Severity codeine (Allergy) SunOct 11 14:45:00 EDT 2019 Medications Medication Directions Start Date End Date phenytoin 50 mg chewable tablet 200mg TABLET, CHEWABLE Oral 2 Times Daily Seizure SunFeb 19 13:00:00 EDT 2017Feb 23 01:00:00 EDT 2017 Calcium 600 + D(3) 600 mg (1,500 mg)-400 unit tablet 1 tab TABLET Oral 2 Times Daily SunFeb 09 09:00:00 EDT 2017Feb 23 01:00:00 EDT 2017 Phenytek 200 mg capsule 200mg CAPSULE Or al 2 Times Daily SunFeb 09 09:00:00 EDT 2017Feb 19 13:43:00 EDT 2017 TUBErsol 5 tub. unit/0.1 mL intradermal injection solution 0.1 ml VIAL (ML) Intradermal 1 Time Weekly for 2 Weeks (PPD) 1st injection upon admission. Read between 48 and 72 hours and give 2nd injection 1 week after the 1st if result is negative. If positive result, proceed with chest x-ray to rule out active disease. SunFeb 07 11:00:00 EDT 2017Feb 21 10:59:00 EDT 2017 TUBErsol 5 tub. unit/0.1 mL intradermal injection solution Read Results VIAL (ML) Other 1 Time Weekly for 2 Weeks Read results between 48-72 hours after 1st and 2nd 1 week apart. If positive do chest x-ray to rule out active disease. SunFeb 10 11:00:00 2017Feb 23:00:00 2017 Prevnar 13 (PF) 0.5 mL intramuscular syringe 0.5 SYRINGE (ML) Intramuscular 1 Time Daily for 1 Day Document lot # and expiration SunFeb 07 17:00:00 2017Feb 08 16:59:00 2017 acetaminophen 500 mg tablet 500 mg TABLE T Oral PRN Every 6 Hours SunFeb 06 16:00:00 2017Feb 23 01:00:00 2017 amLODIPine 10 mg tablet 10 mg TABLET Ora l 1 Time Daily SunFeb 07 09:00:00 2017Feb 23 01:00:00 2017 atorvastatin 40 mg tablet 40 mg TABLET O ral 1 Time Daily SunFeb 07 21:00:00 2017Feb 23 01:00:00 2017 bisacodyl 10 mg rectal suppository 1 suppository SUPPOSITORY, RECTAL Rectal PRN 1 Time Daily SunFeb 06 16:00:00 2017Feb 23 01:00:00 2017 cholecalciferol (vitamin D3) 1,000 unit tablet 2000 units TABLET Oral 1 Time Daily SunFeb 07 09:00:00 2017Feb 08 15:51:00 2017 clopidogrel 75 mg tablet 75 mg TABLET Or al 1 Time Daily SunFeb 07 09:00:00 2017Feb 23 01:00:00 2017 diclofenac 1 % topical gel 2 gms GEL (GR AM) Topical PRN 3 Times Daily SunFeb 06 16:00:00 2017Feb 23 01:00:00 2017 enoxaparin 40 mg/0.4 mL subcutaneous syringe 0.4 mL SYRINGE (ML) Subcutaneous 1 Time Daily SunFeb 07 09:00:00 2017Feb 20 14:41:00 2017 Miralax 17 gram oral powder packet 17 gm POWDER IN PACKET (EA) Oral 1 Time Daily SunFeb 07 09:00:00 2017Feb 23 01:00:00 2017 potassium chloride ER 10 mEq capsule,extended release 10 mEq CAPSULE, EXTENDED RELEASE Oral 1 Time Daily SunFeb 07 09:00:00 2017Feb 23 01:00:00 EDT 2017 senna 8.6 mg tablet 8.6 mg TABLET Oral 1 Time Daily SunFeb 07 09:00:00 ED2017Feb 23 01:00:00 EDT 2017 phenytoin sodium extended 300 mg capsule 300 mg CAPSULE Oral 1 Time Daily SunFeb 07 21:00:00 EDT 2017Feb 08 16:12:00 EDT 2017 Problems Active Concerns * Dysarthria following cerebral infarction* Code: * Start Date: SunFeb 06 00:00:00 EDT 2017 * End Date: * Text: * Facial weakness following cerebral infarction* Code: * Start Date: SunFeb 06 00:00:00 EDT 2017 * End Date: * Text: * Hemiplegia and hemiparesis following cerebral infarction affecting left non- dominant side* Code: * Start Date: SunFeb 06 00:00:00 ED2017 * End Date: * Text: * Cognitive social or emotional deficit following cerebral infarction* Code: * Start Date: SunFeb 06 00:00:00 EDT 2017 * End Date: * Text: * Epilepsy, unspecified, not intractable, without status epilepticus* Code: * Start Date: SunFeb 06 00:00:00 EDT 2017 * End Date: * Text: * Personal history of other diseases of the circulatory system* Code: * Start Date: SunFeb 06 00:00:00 EDT 2017 * End Date: * Text: * Presence of cerebrospinal fluid drainage device* Code: * Start Date: SunFeb 06 00:00:00 ED2017 * End Date: * Text: * Essential (primary) hypertension* Code: * Start Date: SunFeb 06 00:00:00 EDT 2017 * End Date: * Text: * Hyperlipidemia, unspecified* Code: * Start Date: SunFeb 06 00:00:00 EDT 2017 * End Date: * Text: * Personal history of nicotine dependence* Code: * Start Date: SunFeb 06 00:00:00 EDT 2017 * End Date: * Text: * Hypokalemia* Code: * Start Date: SunFeb 06 00:00:00 EDT 2017 * End Date: * Text: * Vitamin D deficiency, unspecified* Code: * Start Date: SunFeb 06 00:00:00 EDT 2017 * End Date: * Text: * Urinary tract infection, site not specified* Code: * Start Date: SunFeb 06 00:00:00 EDT 2018 * End Date: * Text: Reason for Referral Past Medical History
[2024-10-31] MEDS: levETIRAcetam 1500MG/NACL100ML 1,500 MG/100 ML BAG 400 MG IVPB (09:34)
[2024-10-31 09:39] LABS: Add Urine Microscopic? YES; Appearance Urine Clear (Clear); Bacteria Urine 4+ /hpf; Bilirubin Urine Negative (Negative); Blood Urine Negative (Negative); Color Urine Yellow (Yellow); Glucose Urine UA Negative (Negative); Ketones Urine Trace mg/dL (Negative); Leukocyte Esterase Ur Negative LEU/UL (Negative); Nitrate Urine Positive (Negative); Protein Urine 2+ mg/dL (Negative); Specific Grav Ur 1.012 (1.001-1.035); Squamous Epithelial Cell Urine None Seen /hpf (Few); Urobilinogen Urine 0.2 mg/dL (<2.0); WBC Urine 0-5 /hpf (0-3); pH Urine 5.5 (5.0-9.0)
[2024-10-31 10:09] LABS: Influenza A QL RT-PCR Negative (Negative); Influenza B QL RT-PCR Negative (Negative); RSV RNA, RT-PCR Negative (Negative); SARS-CoV-2 RNA PCR Negative (Negative)
[2024-10-31 10:46] LABS: Basophils Percent Auto 0.4 % (0.2-1.2); Eosinophils Percent Auto 0.4 % (0-4.4); Hematocrit 35.7 % (37.0-47.0); Hemoglobin 11.9 g/dL (12.0-15.0); Immature Granulocyte Absolute 0.04 K/mm3 (0.00-0.031); Immature Granulocyte Percent A 0.4 % (0-0.5); Lymphocytes Absolute Auto 0.84 K/mm3 (0.9-3.2); Lymphocytes Percent Auto 7.9 % (18.3-44.2); Mean Corpuscular HGB Conc 33.3 g/dl (32-36); Mean Corpuscular Hemoglobin 31.7 pg (26-34); Mean Corpuscular Volume 95.2 fl (80-100); Mean Platelet Volume 10.9 fl (7.4-10.4); Monocytes Absolute Auto 0.7 K/mm3 (0.1-0.6); Monocytes Percent Auto 6.2 % (2.6-8.5); Neutrophils Percent Auto 84.7 % (45.5-73.1); Platelet Count Result 274 k/mm3 (150-375); Red Blood Count 3.75 M/mm3 (4.2-5.4); Red Cell Distribution Width 14.3 % (11.5-14.5); White Blood Count 10.6 K/mm3 (4.5-10.0)
[2024-10-31 11:03] LABS: Alanine Aminotransferase 18 U/L (6-35); Albumin Level 4.2 g/dL (3.5-5.1); Alkaline Phosphatase 123 U/L (38-126); Anion Gap 8 mmol/L (4-12); Aspartate Amino Transferase 18 U/L (14-36); Bilirubin,Total 0.4 mg/dL (0.2-1.3); Blood Urea Nitrogen 12 mg/dL (7-17); Calcium 9.1 mg/dL (8.4-10.2); Carbon Dioxide 27 mmol/L (22-30); Chloride 103 mmol/L (98-107); Estimated CRCL calculation 79 ml/min; Estimated Glomerular Filt Rate > 60; Glucose 122 mg/dL (65-110); Lipase 83 U/L (23-300); Magnesium 1.9 mg/dL (1.6-2.3); Phosphorus 2.7 mg/dL (2.5-4.5); Potassium 3.4 mmol/L (3.4-5.0); Sodium 138 mmol/L (137-145)
--- NOTE | 2024-10-31 14:17 | ED.GENADULT ---
HPI - General Adult General Chief complaint: Seizure Stated complaint: seizure Time Seen by Provider: 10/31/24 08:55 History of Present Illness HPI narrative: This is a 74-year-old female with history of seizures presenting for breakthrough seizure. On morning rounds the [facility] they found her to be foaming at mouth. Seizure continued for approximately 1 minute before resolving. EMS was called and she was brought to the hospital. Patient is postictal and cannot provide any information Related Data Home Medications ?Medication ?Instructions ?Recorded ?Confirmed ?Last Taken ?Type polyethylene glycol 3350 17 See Rx Instructions .Route .COMPLEX 09/01/19 07/08/24 Unknown History gram/dose oral powder (Miralax) Allergies Allergy/AdvReac Type Severity Reaction Status Date / Time codeine Allergy Unknown Hives Verified 07/08/24 10:14 [facility] Past Medical History Medical History Unspecified convulsions Other sequelae following nontraumatic subarachnoid hemorrhage Other cerebrovascular disease Vascular dementia, unspecified severity, without behavioral disturbance, psychotic disturbance, mood disturbance, and anxiety Anemia History of stroke with residual deficit Aneurysm Shunt, 2002 Stroke Melanoma Arthritis Seizures HLD (hyperlipidemia) HTN (hypertension) Family History Family History Father Family history of heart disease in male family member before age 55 Family history of cardiovascular disease Hypertension Mother Cerebrovascular accident Social History Social History Smoking status: Former smoker Tobacco type: cigarettes Alcohol intake: never Substance use: never Do You Feel Safe in your Home?: Yes Lack of Transportation: No Lack of Food: Never True Current Housing: I Have Housing Concerned About Future Housing: No Difficulty Paying Gas/Electric Bills: No Difficulty Paying for Meds: No Currently Unemployed: No Education: High School Diploma/GED Difficulty w/ Childcare or Family Care: No Living arrangements: [facility] Additional living arrangements comments: [facility] Exam Narrative: APPEARANCE: Postictal, response to pain, smells of urine Head: atraumatic. EYES: EOMI, NOSE: Atraumatic NECK: Trachea midline RESPIRATORY: No increased rate of breathing CTAB CARDIOVASCULAR: RRR, ABDOMINAL: Non-distended soft nontender MUSCULOSKELETAl: No obvious deformities NEURO: Arousable, moving for 4 extremities to pain SKIN:: Warm, dry. Normal color PSYCHIATRIC: Lethargic Course Vital Signs Vital signs: Vital Signs Temperature 98.0 F 10/31/24 08:54 Pulse Rate 81 10/31/24 08:54 Respiratory Rate 20 10/31/24 08:54 Blood Pressure 151/86 H 10/31/24 08:54 Pulse Oximetry 96 10/31/24 08:54 Oxygen Delivery Room Air 10/31/24 08:54 Temperature 98.0 F 10/31/24 08:54 Pulse Rate 68 10/31/24 14:31 Respiratory Rate 13 10/31/24 14:31 Blood Pressure 132/73 10/31/24 14:31 Pulse Oximetry 96 10/31/24 12:01 Oxygen Delivery Room Air 10/31/24 09:25 Medical Decision Making MDM Narrative Medical decision making narrative: -Course: 74-year-old female history of seizures presenting for breakthrough seizure. Patient loaded with Keppra. Patient is postictal and can not provide any information. CT brain unremarkable. Shunt series intact. Laboratory studies within normal limits. Straight cath urine showed positive nitrites and +4 bacteria but no white blood cells. Cultures pending. Will start on ceftriaxone until culture results return. On re-evaluation the patient is still postictal. Patient will be placed in observation for prolonged postictal. Dilantin and keppra levels ordered. -DDX includes but is not limited to: Breakthrough seizure, sepsis UTI pneumonia dehydration viral syndrome Vital Signs Vital Signs: Vital Signs Temperature 98.0 F 10/31/24 08:54 Pulse Rate 81 10/31/24 08:54 Respiratory Rate 20 10/31/24 08:54 Blood Pressure 151/86 H 10/31/24 08:54 Pulse Oximetry 96 10/31/24 08:54 Oxygen Delivery Room Air 10/31/24 08:54 Temperature 98.0 F 10/31/24 08:54 Pulse Rate 68 10/31/24 14:31 Respiratory Rate 13 10/31/24 14:31 Blood Pressure 132/73 10/31/24 14:31 Pulse Oximetry 96 10/31/24 12:01 Oxygen Delivery Room Air 10/31/24 09:25 Lab Data 10/31/24 10:25 10/31/24 10:24 Labs: Lab Results 10/31/24 10/31/24 10/31/24 Range/Units 09:28 10:24 10:25 WBC 10.6 H (4.5-10.0) K/mm3 RBC 3.75 L (4.2-5.4) M/mm3 Hgb 11.9 L (12.0-15.0) g/dL Hct 35.7 L (37.0-47.0) % MCV 95.2 (80-100) fl MCH 31.7 (26-34) pg MCHC 33.3 (32-36) g/dl RDW 14.3 (11.5-14.5) % Plt Count 274 (150-375) k/mm3 MPV 10.9 H (7.4-10.4) fl Immature Gran % (Auto) 0.4 (0-0.5) % Neut % (Auto) 84.7 H (45.5-73.1) % Lymph % (Auto) 7.9 L (18.3-44.2) % Citrus % (Auto) 6.2 (2.6-8.5) % Eos % (Auto) 0.4 (0-4.4) % Baso % (Auto) 0.4 (0.2-1.2) % Lymph # (Auto) 0.84 L (0.9-3.2) K/mm3 Citrus # (Auto) 0.7 H (0.1-0.6) K/mm3 Eos # (Auto) 0.0 (0-0.3) K/mm3 Baso # (Auto) 0.0 (0.0-0.1) K/mm3 Abs Immat Gran (auto) 0.04 H (0.00-0.031) K/mm3 Absolute Neuts (auto) 9.0 H (1.3-6.7) K/mm3 Absolute Nucleated RBC 0.000 (0.0-0.012) K/mm3 Nucleated RBC % 0.0 (0.0-0.2) % Sodium 138 (137-145) mmol/L Potassium 3.4 (3.4-5.0) mmol/L Chloride 103 (98-107) mmol/L Carbon Dioxide 27 (22-30) mmol/L Anion Gap 8 (4-12) mmol/L BUN 12 (7-17) mg/dL Creatinine 0.54 L (0.7-1.0) mg/dL Estim Creat Clear Calc 79 ml/min Estimated GFR > 60 (59 - ) Glucose 122 H (65-110) mg/dL Calcium 9.1 (8.4-10.2) mg/dL Phosphorus 2.7 (2.5-4.5) mg/dL Magnesium 1.9 (1.6-2.3) mg/dL Total Bilirubin 0.4 (0.2-1.3) mg/dL AST 18 (14-36) U/L ALT 18 (6-35) U/L Alkaline Phosphatase 123 (38-126) U/L Total Protein 7.0 (6.3-8.2) g/dL Albumin 4.2 (3.5-5.1) g/dL Lipase 83 (23-300) U/L Urine Color Yellow (Yellow) Urine Appearance Clear (Clear) Urine pH 5.5 (5.0-9.0) Ur Specific [place] 1.012 (1.001-1.035) Urine Protein 2+ H (Negative) mg/dL Urine Glucose (UA) Negative (Negative) mg/dL Urine Ketones Trace H (Negative) mg/dL Ur Blood (Man) Negative (Negative) Urine Nitrate Positive H (Negative) Urine Bilirubin Negative (Negative) Urine Urobilinogen 0.2 (<2.0) mg/dL Leukocyte Esterase Rfl Negative (Negative) IRAIS/UL Urine RBC 3-5 H (0-2) /hpf Urine WBC 0-5 (0-3) /hpf Ur Squamous Epith Cells None seen (Few) /hpf Urine Bacteria 4+ H /hpf Urine Casts 3-5 Influenza A (RT-PCR) Negative (Negative) Influenza B (RT-PCR) Negative (Negative) RSV (RT-PCR) Negative (Negative) SARS-CoV-2 RNA (RT-PCR) Negative (Negative) Discharge Plan Discharge Clinical Impression: Breakthrough seizure, Acute UTI Patient Disposition: Still a Patient Condition: Stable Patient Language: Micronesian Prescriptions: No Action polyethylene glycol 3350 [Miralax] 17 gram/dose powder See Rx Instructions .ROUTE .COMPLEX Rx Instructions: Take (17G) by oral route everyday mixed with 8oz. water, juice, soda, coffee or tea; escitalopram oxalate [Lexapro] 10 mg tablet 10 mg PO DAILY Qty: 30 7RF calcium carbonate-vitamin D3 600 mg(1,500mg) -400 unit tablet See Rx Instructions .ROUTE .COMPLEX Qty: 180 3RF Dose Instruction: TAKE 1 TABLET BY MOUTH EVERY MORNING AND BEDTIME Rx Instructions: TAKE 1 TABLET BY MOUTH EVERY MORNING AND BEDTIME potassium chloride 20 mEq/15 mL liquid 10 meq PO DAILY Qty: 1200 2RF clopidogrel [Plavix] 75 mg tablet 75 mg PO .COMPLEX Qty: 90 2RF Rx Instructions: 75 mg PO daily in the am; *CAN BE CRUSHED* furosemide 40 mg tablet See Rx Instructions .ROUTE .COMPLEX Qty: 90 2RF Rx Instructions: Take 1 tablet by mouth every morning at 8am ; *CAN BE CRUSHED* levetiracetam 100 mg/mL solution See Rx Instructions .ROUTE .COMPLEX Qty: 750 3RF Rx Instructions: Increase dose to 15ml in the morning and 10ml at bedtime. lisinopril 5 mg tablet 5 mg PO DAILY Qty: 90 2RF Rx Instructions: *CAN BE CRUSHED* memantine 10 mg tablet 10 mg PO BID Qty: 180 2RF Rx Instructions: *CAN BE CRUSHED* simvastatin 20 mg tablet 20 mg PO .Daily in the Evening Qty: 90 2RF Rx Instructions: *CAN BE CRUSHED* phenytoin 50 mg tablet,chewable 100 mg PO TID Qty: 540 1RF Follow-up/Referrals: Vinny Storm, [Primary Care Provider] -
[2024-10-31] MEDS: SODIUM CHLORIDE 0.9% IV 1,000 ML 150 ML IV CONT (15:39)
--- NOTE | 2024-10-31 15:43 | PC.NURSE ---
first attempt to call report at this time.
[2024-10-31 15:45] LABS: Phenytoin Dilantin 11 ug/mL (10-20)
--- NOTE | 2024-10-31 16:20 | ADMGEN ---
This patient, Latricia Gunter, was admitted to Medical Room 341-01. Patient/family oriented to hospital policies and general routines including ID bracelet, bed and alarms, visiting hours, pain management, procedures, bathroom and other care routines, personal items, smoking policy, room service/diet, and visiting hours. Information on how to activate the Rapid Response Team has been discussed. Patient/Family are encouraged to report perceived risks to care and to ask questions if they do not understand what they are told or what they should do.
--- NOTE | 2024-10-31 23:24 | PM.IMHP ---
H&P: HPI History of Present Illness Date/Time: 10/31/24 23:24 Chief Complaint: Seizures Narrative: 74 y/o F with PMH of seizures, dementia, CVA, aneurysm s/p shunt (2001), melanoma, HLD, HTN presents here with a breakthrough seizure. The patient presents here from [facility] via EMS on 10/31 for further evaluation of recurrent seizure activity. HPI obtained through EMS report and ED provider report as the patient remains post-ictal. EMS report that during morning rounds, staff found the patient having a grand mal seizure and foaming at the mouth. They reported the spleen 1 minute and resolved without intervention. The patient has a past medical history significant for dementia, stroke with residual deficits, aneurysm with shunt placement in 2001, and seizures. At baseline, the patient's facility reports she is verbal and able to use a wheelchair. Of note, they reported she had not received her morning medications. The patient is currently reporting no complaints. Denies fever, chills, body aches, dizziness, headache, focal numbness/weakness, abdominal pain, dysuria, or urinary frequency. Initial VS at presentation: 98? F, HR 81, RR 20, 151/86, and 96% on RA. ED workup showed: WBC 10.6, hemoglobin 11.9, no significant electrolyte derangements, creatinine 0.54 and GFR >60, glucose 122, UA suggestive of UTI, viral PCR negative. Head CT showed no interval change since 09/11/2024, no evidence of acute intracranial hemorrhage. Shunt series XR showed no evidence of discontinuity of [employer] shunt. Review of Systems Review of Systems: All systems reviewed & are unremarkable except as noted in HPI and below (Limited, A&O x1) [facility] Past Medical History Medical History Unspecified convulsions Other sequelae following nontraumatic subarachnoid hemorrhage Other cerebrovascular disease Vascular dementia, unspecified severity, without behavioral disturbance, psychotic disturbance, mood disturbance, and anxiety Anemia History of stroke with residual deficit Aneurysm Shunt, 2001 Stroke Melanoma Arthritis Seizures HLD (hyperlipidemia) HTN (hypertension) Family History Family History Father Family history of heart disease in male family member before age 55 Family history of cardiovascular disease Hypertension Mother Cerebrovascular accident Social History Social History Smoking status: Former smoker Alcohol intake: unknown Substance use: unknown Do You Feel Safe in your Home?: Yes Lack of Transportation: No Lack of Food: Never True Current Housing: I Have Housing Concerned About Future Housing: No Difficulty Paying Gas/Electric Bills: No Difficulty Paying for Meds: No Currently Unemployed: No Education: High School Diploma/GED Difficulty w/ Childcare or Family Care: No Living arrangements: retirement Additional living arrangements comments: [facility] concerns: No (unknown) Meds Home Medications and Allergies Home Medications ?Medication ?Instructions ?Recorded ?Confirmed ?Type polyethylene glycol 3350 17 See Rx Instructions .Route .COMPLEX 09/01/19 10/31/24 History gram/dose oral powder (Miralax) calcium 600 mg (as See Rx Instructions .Route 08/16/20 10/31/24 Rx carbonate)-vitamin D3 10 mcg (400 .COMPLEX #180 tabs unit) tablet clopidogrel 75 mg tablet (Plavix) 75 mg PO .COMPLEX #90 tabs 01/29/24 10/31/24 Rx furosemide 40 mg tablet See Rx Instructions .Route 01/29/24 10/31/24 Rx .COMPLEX #90 tabs levetiracetam 100 mg/mL oral See Rx Instructions .Route 01/29/24 10/31/24 Rx solution .COMPLEX #750 mL lisinopril 5 mg tablet 5 mg PO DAILY #90 tabs 01/29/24 10/31/24 Rx memantine 10 mg tablet 10 mg PO BID #180 tabs 01/29/24 10/31/24 Rx potassium chloride 20 mEq/15 mL 10 meq (7.5 mL) PO DAILY #1,200 mL 01/29/24 10/31/24 Rx oral liquid simvastatin 20 mg tablet 20 mg PO .Daily in the Evening #90 01/29/24 10/31/24 Rx tabs phenytoin 50 mg chewable tablet 100 mg (2 x 50 mg) PO TID #540 tabs 02/20/24 10/31/24 Rx escitalopram oxalate 10 mg tablet 10 mg PO DAILY #30 tabs 05/07/24 10/31/24 Rx (Lexapro) acetaminophen 500 mg tablet 1,000 mg PO Q8H PRN pain 10/31/24 10/31/24 History tramadol 50 mg tablet 50 mg PO Q6-8H PRN pain 10/31/24 10/31/24 History Allergies Allergy/AdvReac Type Severity Reaction Status Date / Time codeine Allergy Unknown Hives Verified 07/08/24 10:14 Vital Signs Vital Signs - 24 hr 10/31/24 08:54 10/31/24 08:59 10/31/24 09:01 Temperature 98.0 F Pulse Rate 81 83 80 Respiratory Rate 20 16 16 Blood Pressure 151/86 H 148/78 H 151/86 H Pulse Oximetry 96 99 98 Oxygen Delivery Room Air 10/31/24 09:02 10/31/24 09:02 10/31/24 09:16 Temperature Pulse Rate 80 77 Respiratory Rate 20 Blood Pressure 155/70 H Pulse Oximetry 96 Oxygen Delivery Room Air 10/31/24 09:20 10/31/24 09:25 10/31/24 09:30 Temperature Pulse Rate 75 Respiratory Rate 15 Blood Pressure Pulse Oximetry 100 94 97 Oxygen Delivery Room Air Room Air 10/31/24 09:45 10/31/24 10:00 10/31/24 10:26 Temperature Pulse Rate 73 68 67 Respiratory Rate 16 16 11 L Blood Pressure 131/53 L Pulse Oximetry 99 Oxygen Delivery 10/31/24 10:27 10/31/24 10:31 10/31/24 11:16 Temperature Pulse Rate 66 68 72 Respiratory Rate 14 11 L 19 Blood Pressure 115/52 L Pulse Oximetry 98 97 Oxygen Delivery 10/31/24 11:30 10/31/24 11:49 10/31/24 12:01 Temperature Pulse Rate 66 75 71 Respiratory Rate 12 14 12 Blood Pressure 153/61 H 122/69 Pulse Oximetry 98 97 96 Oxygen Delivery 10/31/24 12:31 10/31/24 13:01 10/31/24 13:31 Temperature Pulse Rate 70 71 71 Respiratory Rate 20 12 19 Blood Pressure 122/70 122/73 143/73 H Pulse Oximetry Oxygen Delivery 10/31/24 14:01 10/31/24 14:31 Temperature Pulse Rate 67 68 Respiratory Rate 13 13 Blood Pressure 132/67 132/73 Pulse Oximetry Oxygen Delivery Exam Narrative: A/Ox1 Const: General: comfortable and no acute distress Other: , female, overweight body habitus, nontoxic appearance HENMT: Face/Nose/Sinus: Normal nares present Mouth: Yes moist mucous membranes Eyes: General: appearance normal, both eyes and all related structures Sclera: sclerae normal Pupils: Equal, round and reactive pupils present EOM: EOMs intact bilaterally Resp: Effort & Inspection: normal respiratory effort Auscultation: clear to auscultation bilaterally Cardio: Rate: regular rate Rhythm: regular rhythm Other: S1-S2 present without murmur, rub, ectopy GI: Other: Abdomen soft, nondistended, nontender. Normoactive bowel sounds in all quadrants. Skin: General skin exam: normal color and no rashes or lesions noted Wounds: no wounds Neuro: Other: A&O x1. Moving all extremities. Speech clear. Extrem: General: normal to inspection Psych: Other: Blunted affect. Poor insight and judgment. Pleasant. H&P: Results Labs Labs: Short CBC 10/31/24 Range/Units 10:25 WBC 10.6 H (4.5-10.0) K/mm3 Hgb 11.9 L (12.0-15.0) g/dL Hct 35.7 L (37.0-47.0) % Plt Count 274 (150-375) k/mm3 BMP 10/31/24 10:24 Sodium 138 Potassium 3.4 Chloride 103 Carbon Dioxide 27 BUN 12 Creatinine 0.54 L Glucose 122 H Calcium 9.1 Liver Function 10/31/24 Range/Units 10:24 Total Bilirubin 0.4 (0.2-1.3) mg/dL AST 18 (14-36) U/L ALT 18 (6-35) U/L Alkaline Phosphatase 123 (38-126) U/L Albumin 4.2 (3.5-5.1) g/dL Urine 10/31/24 Range/Units 09:28 Urine Color Yellow (Yellow) Urine Appearance Clear (Clear) Urine pH 5.5 (5.0-9.0) Ur Specific [place] 1.012 (1.001-1.035) Urine Protein 2+ H (Negative) mg/dL Urine Glucose (UA) Negative (Negative) mg/dL Assessment and Plan Assessment and plan (1) Breakthrough seizure: Code(s): G40.919 - Epilepsy, unspecified, intractable, without status epilepticus Status: Acute Assessment and Plan: Head CT showed no interval change and no evidence of acute intracranial hemorrhage. Shunt series XR showed no evidence of discontinuity [employer] shunt. Given Keppra 1.5G IV as loading dose. Check Keppra and Dilantin levels. Neurology consulted, on service on 11/01. Continue home Keppra and Dilantin. Seizure precautions. May have breakthrough secondary to active infection, UTI suspected. See below. Remained altered this afternoon, felt to be consistent with postictal state. neuro checks q.4. Currently awake, alert, moving all extremities, A&O x1. (2) Acute UTI: Code(s): N39.0 - Urinary tract infection, site not specified Status: Acute Assessment and Plan: Urine showed 2+ protein, trace ketones, positive nitrates, 3-5 RBC, no epithelial cells or leuks, and 4+ bacteria. Reviewed previous micro, grew E coli resistant to Augmentin, Ancef, and Unasyn in 2022. Started on ceftriaxone on 10/31. Follow urine culture. IV fluids at 150 mL/hr x1L. (3) HTN (hypertension): Qualifiers: Hypertension type: essential hypertension Qualified Code(s): I10 - Essential (primary) hypertension Code(s): I10 - Essential (primary) hypertension Status: Acute Assessment and Plan: Chronic, currently 132/73. Continue home lisinopril 5 mg daily. Monitor BP. Plan Diet: Heart healthy GI Prophylaxis: Not currently indicated DVT Prophylaxis: SCDs Lines: Peripheral Code Status: Full code Quality VTE Prophylaxis VTE prophylaxis: mechanical ordered Hospitalist [facility] Advance Care Plan I have confirmed that the patient's Advanced Care Plan is present, code status is documented, or surrogate decision maker is listed in patient medical record.: Yes Medication Reconciliation I have utilized all available resources to obtain, update and review the patients current medications (includes all prescriptions, OTC, herbals, cannabis, and nutritional supplements).: Yes
[2024-11-01] VITALS (10 sets, daily range): BP systolic 114–154; BP diastolic 52–73; PULSE 55–61; RESP 16–18; TEMP 36.1–36.6; O2SAT 97–100
[2024-11-01 05:44] LABS: Basophils Absolute Auto 0.1 K/mm3 (0.0-0.1); Basophils Percent Auto 0.7 % (0.2-1.2); Eosinophils Absolute Auto 0.2 K/mm3 (0-0.3); Eosinophils Percent Auto 2.5 % (0-4.4); Hematocrit 36.3 % (37.0-47.0); Hemoglobin 11.7 g/dL (12.0-15.0); Immature Granulocyte Absolute 0.02 K/mm3 (0.00-0.031); Immature Granulocyte Percent A 0.3 % (0-0.5); Lymphocytes Absolute Auto 1.95 K/mm3 (0.9-3.2); Lymphocytes Percent Auto 28.6 % (18.3-44.2); Mean Corpuscular HGB Conc 32.2 g/dl (32-36); Mean Corpuscular Hemoglobin 31.3 pg (26-34); Mean Corpuscular Volume 97.1 fl (80-100); Mean Platelet Volume 10.4 fl (7.4-10.4); Monocytes Absolute Auto 0.6 K/mm3 (0.1-0.6); Monocytes Percent Auto 9.4 % (2.6-8.5); Neutrophils Percent Auto 58.5 % (45.5-73.1); Platelet Count Result 252 k/mm3 (150-375); Red Blood Count 3.74 M/mm3 (4.2-5.4); White Blood Count 6.8 K/mm3 (4.5-10.0)
[2024-11-01 05:56] LABS: Anion Gap 10 mmol/L (4-12); Blood Urea Nitrogen 8 mg/dL (7-17); Calcium 9.4 mg/dL (8.4-10.2); Carbon Dioxide 24 mmol/L (22-30); Chloride 105 mmol/L (98-107); Estimated CRCL calculation 93 ml/min; Estimated Glomerular Filt Rate > 60; Glucose 100 mg/dL (65-110); Potassium 3.5 mmol/L (3.4-5.0); Sodium 139 mmol/L (137-145)
[2024-11-01] MEDS: CALCIUM/VITAMIN D 500 MG/5 MCG (200 I.U.) TABLET PO ×2 (08:53→20:35)
[2024-11-01] MEDS: PHENYTOIN 50 MG CHEW 100 MG PO ×3 (08:53→17:24)
[2024-11-01] MEDS: POTASSIUM CHLORIDE 20 MEQ PACKET (FOR LIQUID) 10 MEQ PO (08:53)
[2024-11-01] MEDS: FUROSEMIDE 40 MG TABLET PO (08:54)
[2024-11-01] MEDS: polyethylene glycoL 3350 17 GM POWD.PACK PO (08:54)
[2024-11-01] MEDS: levETIRAcetam ORAL SOL 500 MG/5 ML UDC 1500 MG PO (08:54)
[2024-11-01] MEDS: CLOPIDOGREL BISULFATE 75 MG TABLET PO (08:54)
[2024-11-01] MEDS: ESCITALOPRAM OXALATE 10 MG TABLET PO (08:54)
[2024-11-01] MEDS: lisinopriL 5 MG TABLET PO (08:54)
[2024-11-01] MEDS: MEMANTINE 10 MG TABLET PO ×2 (08:54→20:35)
--- NOTE | 2024-11-01 11:18 | P.CONNEU_ITS ---
Assessment and Plan Assessment and plan (1) Acute UTI: Code(s): N39.0 - Urinary tract infection, site not specified Status: Acute (2) Breakthrough seizure: Code(s): G40.919 - Epilepsy, unspecified, intractable, without status epilepticus Status: Acute (3) History of stroke with residual deficit: Code(s): I69.30 - Unspecified sequelae of cerebral infarction Status: Acute (4) Status post ventriculoatrial shunt placement: Code(s): Z98.2 - Presence of cerebrospinal fluid drainage device Status: Acute Plan 1. History of epilepsy with breakthrough seizure without evidence of acute intracranial bleed and the shunt series documenting the tissues intact patient was loaded with Keppra in the emergency room that is 1.5g intravenously and was continued on home dose of Keppra and Dilantin breakthrough seizure were attributed to the possibility of infection that is why she is in the hospital and has been diagnosed to have acute UTI. will continue the treatment as such the only question could be the with the V need to continue the Dilantin because of the possibility of long-term side effect or continue the treatment as such I would discuss further. She is being followed by Dr. Jorge Rowe in the office with the ongoing diagnosis as mentioned above Consult date: 11/01/24 HPI: Latricia Gunter is a 74 year old femaleHas been admitted to the hospital through the emergency room for complaints of breakthrough seizures. 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 She is a former smoker, never alcohol intake or substance user, on initial exam in the emergency room she was documented to be postictal with normal vital signs, normal CBC, normal BMP, normal masters scan, normal UA except 4+ bacteria, negative for influenza a influenza B RSV and SARs COVID, her medication particularly included Keppra, lisinopril, memantine, and phenytoin 50mg chewable tablets 2 of them 3 times a day. Initial CT scan in the emergency room was negative for the bleed she was noted to have moderate size encephalomalacia in the left frontal lobe with metallic streak artifacts from the embolization coils in the anterior inferior left frontal lobe and right frontal ventricular drainage catheter extending through the anterior horn of the right lateral ventricle with distal tip in the cavum septum pellucidum unchanged from previous study but without evidence of any bleed or hydrocephalus. Shunt series were done in the ER which revealed no evidence of discontinuity of the [employer] shunt. Review of Systems 2 Review of Systems: All systems reviewed & are unremarkable except as noted in HPI and below PMFSH Past Medical History Medical History Unspecified convulsions Other sequelae following nontraumatic subarachnoid hemorrhage Other cerebrovascular disease Vascular dementia, unspecified severity, without behavioral disturbance, psychotic disturbance, mood disturbance, and anxiety Anemia History of stroke with residual deficit Aneurysm Shunt, 2001 Stroke Melanoma Arthritis Seizures HLD (hyperlipidemia) HTN (hypertension) Family History Family History Father Family history of heart disease in male family member before age 55 Family history of cardiovascular disease Hypertension Mother Cerebrovascular accident Social History Social History Smoking status: Former smoker Alcohol intake: unknown Substance use: unknown Do You Feel Safe in your Home?: Yes Lack of Transportation: No Lack of Food: Never True Current Housing: I Have Housing Concerned About Future Housing: No Difficulty Paying Gas/Electric Bills: No Difficulty Paying for Meds: No Currently Unemployed: No Education: High School Diploma/GED Difficulty w/ Childcare or Family Care: No [place] [facility] Additional living arrangements comments: [facility] Spiritual care concerns: No (unknown) Meds Home Medications and Allergies Home Medications ?Medication ?Instructions ?Recorded ?Confirmed ?Type polyethylene glycol 3350 17 See Rx Instructions .Route .COMPLEX 09/01/19 10/31/24 History gram/dose oral powder (Miralax) calcium 600 mg (as See Rx Instructions .Route 08/16/20 10/31/24 Rx carbonate)-vitamin D3 10 mcg (400 .COMPLEX #180 tabs unit) tablet clopidogrel 75 mg tablet (Plavix) 75 mg PO .COMPLEX #90 tabs 01/29/24 10/31/24 Rx furosemide 40 mg tablet See Rx Instructions .Route 01/29/24 10/31/24 Rx .COMPLEX #90 tabs levetiracetam 100 mg/mL oral See Rx Instructions .Route 01/29/24 10/31/24 Rx solution .COMPLEX #750 mL lisinopril 5 mg tablet 5 mg PO DAILY #90 tabs 01/29/24 10/31/24 Rx memantine 10 mg tablet 10 mg PO BID #180 tabs 01/29/24 10/31/24 Rx potassium chloride 20 mEq/15 mL 10 meq (7.5 mL) PO DAILY #1,200 mL 01/29/24 10/31/24 Rx oral liquid simvastatin 20 mg tablet 20 mg PO .Daily in the Evening #90 01/29/24 10/31/24 Rx tabs phenytoin 50 mg chewable tablet 100 mg (2 x 50 mg) PO TID #540 tabs 02/20/24 10/31/24 Rx escitalopram oxalate 10 mg tablet 10 mg PO DAILY #30 tabs 05/07/24 10/31/24 Rx (Lexapro) acetaminophen 500 mg tablet 1,000 mg PO Q8H PRN pain 10/31/24 10/31/24 History tramadol 50 mg tablet 50 mg PO Q6-8H PRN pain 10/31/24 10/31/24 History Allergies Allergy/AdvReac Type Severity Reaction Status Date / Time codeine Allergy Unknown Hives Verified 07/08/24 10:14 Vital Signs Vital Signs - 24 hr 10/31/24 11:30 10/31/24 11:49 10/31/24 12:01 Temperature Pulse Rate 66 75 71 Respiratory Rate 12 14 12 Blood Pressure 153/61 H 122/69 Pulse Oximetry 98 97 96 Oxygen Delivery 10/31/24 12:31 10/31/24 13:01 10/31/24 13:31 Temperature Pulse Rate 70 71 71 Respiratory Rate 20 12 19 Blood Pressure 122/70 122/73 143/73 H Pulse Oximetry Oxygen Delivery 10/31/24 14:01 10/31/24 14:31 10/31/24 15:01 Temperature Pulse Rate 67 68 67 Respiratory Rate 13 13 13 Blood Pressure 132/67 132/73 111/54 L Pulse Oximetry 97 Oxygen Delivery 10/31/24 15:31 10/31/24 16:40 10/31/24 16:46 Temperature 36.9 C Pulse Rate 63 68 68 Respiratory Rate 12 20 20 Blood Pressure 136/51 L 115/61 Pulse Oximetry 99 98 98 Oxygen Delivery Room Air 10/31/24 20:00 10/31/24 20:00 10/31/24 20:30 Temperature 36.6 C Pulse Rate 60 60 Respiratory Rate 16 Blood Pressure 137/56 L Pulse Oximetry 98 Oxygen Delivery Room Air 11/01/24 00:00 11/01/24 00:00 11/01/24 04:00 Temperature 36.6 C Pulse Rate 55 L 57 L 56 L Respiratory Rate 18 Blood Pressure 154/73 H Pulse Oximetry 100 Oxygen Delivery 11/01/24 04:00 11/01/24 08:19 11/01/24 09:12 Temperature 36.6 C 36.4 C Pulse Rate 57 L 61 59 L Respiratory Rate 18 17 Blood Pressure 139/68 149/69 H Pulse Oximetry 99 100 Oxygen Delivery Exam 2 Narrative: Exam this morning revealed her to be awake alert able to follow the few instructions eyes or and very present, head normocephalic, ear nose throat examination normal no spontaneous nystagmus followed the fingers in all 4 quadrants without any nystagmus, facial grimace is symmetrical head tilted to the left side she was able to protrude tongue out, she was able to move both upper and lower extremities on asphalt but reflexes were brisk both plantar responses were abnormal that is upgoing she had difficulties in performing finger to nose to finger she was unable to do heel to knee to goins. Results Labs 11/01/24 05:34 11/01/24 05:34 Labs: Short CBC 11/01/24 Range/Units 05:34 WBC 6.8 (4.5-10.0) K/mm3 Hgb 11.7 L (12.0-15.0) g/dL Hct 36.3 L (37.0-47.0) % Plt Count 252 (150-375) k/mm3 BMP 11/01/24 05:34 Sodium 139 Potassium 3.5 Chloride 105 Carbon Dioxide 24 BUN 8 Creatinine 0.45 L Glucose 100 Calcium 9.4
--- NOTE | 2024-11-01 16:55 | P.PNIM_ITS ---
Progress Note: A&P Assessment and Plan (1) Breakthrough seizure: Code(s): G40.919 - Epilepsy, unspecified, intractable, without status epilepticus Status: Acute Assessment and Plan: Breakthrough seizure secondary to possible suspected UTI * Head CT was negative for any acute findings * Shunt series was negative for discontinuity of [employer] shunt * Patient was given 1.5 g IV Keppra, loading dose * Dilantin level was normal at 11, Keppra level pending * Neurology consulted * Continue home dose of Keppra and Dilantin * Continue seizure precautions * Continue neuro checks (2) Acute UTI: Code(s): N39.0 - Urinary tract infection, site not specified Status: Acute Assessment and Plan: * UA showed 2+ protein, trace ketone, positive nitrate, 3-5 urine RBC, 4+ bacteria * Urine culture obtained and pending * Previous cultures showed E coli which was resistant to Augmentin, Ancef and Unasyn * Continue Rocephin (3) HTN (hypertension): Qualifiers: Hypertension type: essential hypertension Qualified Code(s): I10 - Essential (primary) hypertension Code(s): I10 - Essential (primary) hypertension Status: Acute Assessment and Plan: * Blood pressure ranging 114/52 to 154/73 * Continue lisinopril . Time Spent With Patient Time with patient: 25 - 35 minutes Subjective Date/time seen: 11/01/24 16:55 Interval history: Interval summary: This is a 74-year-old female with a significant past medical history of seizures, dementia, CVA, aneurysm status post shunt in 2001, melanoma, hyperlipidemia, hypertension who presented to the hospital the for evaluation of seizure activity from [place] [id number] [facility]. Workup in the hospital included a head CT which was negative for any acute intracranial changes. Imaging shunt series was negative for evidence of disc continuity of [employer] shunt. Initial labs showed a white blood cell count of 10.6, hemoglobin 11.9, blood sugar ranging 100-122. UA was obtained which showed 2+ urine protein, trace urine ketone, positive nitrate, 3-5 urine RBC, 4+ bacteria. FENA 20 in level was 11. Keppra level pending. Respiratory panel was negative for influenza a and B, RSV, COVID. Urine culture was obtained and pending. EKG showed sinus rhythm with a rate of 77, QTC 445. Patient was given Rocephin while in the ED. patient was given 1.5 g IV loading dose Keppra. Neurology was consulted. Subjective: Patient is alert and oriented x1. She is following commands today. Labs and imaging reviewed. Review of Systems Review of Systems: ROS unobtainable: Yes unobtainable due to mental status Exam Narrative: General: In no acute distress, well nourished Head: atraumatic, no encephalopathy Eyes: PERRLA, sclera clear ENT: moist mucous membranes, nasal passages clear Neck: supple, no JVD, no adenopathy, trachea midline Cardiac: Normal S1 and S2. No murmur, gallops or friction rubs, peripheral p ulses intact. Respiratory: Lungs clear to auscultation, no adventitious lung sounds currently on room air Gastrointestinal: soft, non-distended, non-tender, normoactive bowel sounds. : voiding without difficulty. Extremities: Weakness noted and left upper extremity, left lower extremity Skin: clean, dry, intact. No wounds or lesions. Neuro: Alert and oriented x1, confused Objective Data Vital Signs Vital Signs: Vital Signs - 24 hr 10/31/24 20:00 10/31/24 20:00 10/31/24 20:30 Temperature 98 F Pulse Rate 60 60 Respiratory Rate 16 Blood Pressure 137/56 L Pulse Oximetry 98 Oxygen Delivery Room Air 11/01/24 00:00 11/01/24 00:00 11/01/24 04:00 Temperature 97.9 F Pulse Rate 55 L 57 L 56 L Respiratory Rate 18 Blood Pressure 154/73 H Pulse Oximetry 100 Oxygen Delivery 11/01/24 04:00 11/01/24 08:19 11/01/24 09:12 Temperature 97.9 F 97.6 F Pulse Rate 57 L 61 59 L Respiratory Rate 18 17 Blood Pressure 139/68 149/69 H Pulse Oximetry 99 100 Oxygen Delivery 11/01/24 12:00 11/01/24 12:36 11/01/24 12:55 Temperature 97.0 F L Pulse Rate 57 L 60 Respiratory Rate 16 Blood Pressure 136/61 Pulse Oximetry 98 99 Oxygen Delivery Room Air 11/01/24 15:33 Temperature 97.1 F L Pulse Rate 58 L Respiratory Rate 16 Blood Pressure 114/52 L Pulse Oximetry 97 Oxygen Delivery Intake/Output Intake/Output: Intake & Output 04/09/25 10/30/24 10/31/24 11/01/24 23:59 23:59 23:59 23:59 Intake Total 350 340 Output Total 300 900 Balance 50 -560 Meds/Results Medications: Active Medications Generic Name Dose Route Start Last Admin Trade Name Freq PRN Reason Stop Dose Admin Acetaminophen 650 mg 10/31/24 15:23 Acetaminophen Elixir 325 Mg/10.15 Ml Udc PO Q6H PRN Mild Pain (1-3) or Fever Calcium Carbonate 500 mg 11/01/24 09:00 11/01/24 08:53 Calcium/Vitamin D 500 Mg/5 Mcg (200 I.U.) Tablet PO 500 mg Q12HR JANICE Administration Clopidogrel Bisulfate 75 mg 11/01/24 09:00 11/01/24 08:54 Clopidogrel Bisulfate 75 Mg Tablet PO 75 mg QAM JANICE Administration Escitalopram Oxalate 10 mg 11/01/24 09:00 11/01/24 08:54 Escitalopram Oxalate 10 Mg Tablet PO 10 mg DAILY JANICE Administration Furosemide 40 mg 11/01/24 08:00 11/01/24 08:54 Furosemide 40 Mg Tablet PO 40 mg DAILY@0800 JANICE Administration Ceftriaxone Sodium 1 gm in 50 mls @ 100 mls/hr 11/01/24 15:00 11/01/24 15:13 Rocephin 1 Gm/Ns 50 Ml IVPB 100 mls/hr Q24H JANICE Administration Levetiracetam 1,500 mg 11/01/24 09:00 11/01/24 08:54 Levetiracetam Oral Jahaira 500 Mg/5 Ml Udc PO 1,500 mg QAM JANICE Administration Levetiracetam 1,000 mg 11/01/24 21:00 Levetiracetam Oral Jahaira 500 Mg/5 Ml Udc PO QHS JANICE Lisinopril 5 mg 11/01/24 09:00 11/01/24 08:54 Lisinopril 5 Mg Tablet PO 5 mg DAILY JANICE Administration Memantine 10 mg 11/01/24 09:00 11/01/24 08:54 Memantine 10 Mg Tablet PO 10 mg Q12HR JANICE Administration Ondansetron HCl 4 mg 10/31/24 15:23 Ondansetron Inj 4 Mg/2 Ml Vial IV PUSH Q6H PRN Nausea And Vomiting Phenytoin 100 mg 11/01/24 09:00 11/01/24 12:27 Phenytoin 50 Mg Chew PO 100 mg TID JANICE Administration Polyethylene Glycol 17 gm 11/01/24 09:00 11/01/24 08:54 Polyethylene Glycol 3350 17 Gm Powd.Pack PO 17 gm DAILY JANICE Administration Potassium Chloride 10 meq 11/01/24 09:00 11/01/24 08:53 Potassium Chloride 20 Meq Packet (For Liquid) PO 10 meq QAM JANICE Administration Simvastatin 20 mg 11/01/24 21:00 Simvastatin 20 Mg Tablet PO QHS JANICE Tramadol HCl 50 mg 10/31/24 23:26 Tramadol Hcl (*Crx) 50 Mg Tablet PO Q6-8H PRN pain 4-6 Radiology Results: ITS Impressions Head CT 10/31/24 10:45 IMPRESSION: No interval change since 09/11/2024. No evidence of acute intracranial hemorrhage. Imaging Shunt Series 10/31/24 11:32 Impression: 1: No evidence for discontinuity of ventriculoperitoneal shunt. Labs Labs: Laboratory Results - last 24 hr 11/01/24 05:34 WBC 6.8 RBC 3.74 L Hgb 11.7 L Hct 36.3 L MCV 97.1 MCH 31.3 MCHC 32.2 RDW 14.0 Plt Count 252 MPV 10.4 Immature Gran % (Auto) 0.3 Neut % (Auto) 58.5 Lymph % (Auto) 28.6 Gonzales % (Auto) 9.4 H Eos % (Auto) 2.5 Baso % (Auto) 0.7 Lymph # (Auto) 1.95 Gonzales # (Auto) 0.6 Eos # (Auto) 0.2 Baso # (Auto) 0.1 Abs Immat Gran (auto) 0.02 Absolute Neuts (auto) 4.0 Absolute Nucleated RBC 0.000 Nucleated RBC % 0.0 Sodium 139 Potassium 3.5 Chloride 105 Carbon Dioxide 24 Anion Gap 10 BUN 8 Creatinine 0.45 L Estim Creat Clear Calc 93 Estimated GFR > 60 Glucose 100 Calcium 9.4 Quality VTE Prophylaxis VTE prophylaxis: mechanical ordered
[2024-11-01] MEDS: SIMVASTATIN 20 MG TABLET PO (20:35)
[2024-11-01] MEDS: levETIRAcetam ORAL SOL 500 MG/5 ML UDC 1000 MG PO (20:35)
[2024-11-02] VITALS (11 sets, daily range): BP systolic 108–149; BP diastolic 50–76; PULSE 51–65; RESP 15–16; TEMP 36.1–37; O2SAT 96–99
[2024-11-02] MEDS: polyethylene glycoL 3350 17 GM POWD.PACK PO (08:50)
[2024-11-02] MEDS: CLOPIDOGREL BISULFATE 75 MG TABLET PO (08:51)
[2024-11-02] MEDS: PHENYTOIN 50 MG CHEW 100 MG PO ×3 (08:51→17:36)
[2024-11-02] MEDS: MEMANTINE 10 MG TABLET PO ×2 (08:51→20:31)
[2024-11-02] MEDS: lisinopriL 5 MG TABLET PO (08:51)
[2024-11-02] MEDS: CALCIUM/VITAMIN D 500 MG/5 MCG (200 I.U.) TABLET PO ×2 (08:51→20:31)
[2024-11-02] MEDS: ESCITALOPRAM OXALATE 10 MG TABLET PO (08:51)
[2024-11-02] MEDS: FUROSEMIDE 40 MG TABLET PO (08:51)
[2024-11-02] MEDS: POTASSIUM CHLORIDE 20 MEQ PACKET (FOR LIQUID) 10 MEQ PO (08:51)
[2024-11-02] MEDS: levETIRAcetam ORAL SOL 500 MG/5 ML UDC 1500 MG PO (08:52)
--- NOTE | 2024-11-02 12:19 | P.PNIM_ITS ---
Progress Note: A&P Assessment and Plan (1) Breakthrough seizure: Code(s): G40.919 - Epilepsy, unspecified, intractable, without status epilepticus Status: Acute Assessment and Plan: Head CT showed no interval change and no evidence of acute intracranial hemorrhage. Shunt series XR showed no evidence of discontinuity EXTENSION COURSE COORDINATOR shunt. Given Keppra 1.5G IV as loading dose. Check Keppra and Dilantin levels. Neurology consulted, on service on 11/01. Keppra and Dilantin continued on admission. May have had breakthrough secondary to active infection, UTI suspected. Alert x1 but answering questions appears close to baseline still lethargic with bilateral lower extremity weakness. patient is still weak postictal PT/OT pending prior to returning to assisted living facility. * Continue seizure precautions * Continue neuro checks (2) Acute UTI: Code(s): N39.0 - Urinary tract infection, site not specified Status: Acute Assessment and Plan: UA showed 2+ protein, trace ketone, positive nitrate, 3-5 urine RBC, 4+ bacteria, Previous cultures showed E coli which was resistant to Augmentin, Ancef and Unasyn. Urine culture showed no growth however I will continue to treat considering patient was nitrate positive with bacteriuria * Continue Rocephin (3) HTN (hypertension): Qualifiers: Hypertension type: essential hypertension Qualified Code(s): I10 - Essential (primary) hypertension Code(s): I10 - Essential (primary) hypertension Status: Acute Assessment and Plan: * Blood pressure ranging 114/52 to 154/73 * Continue lisinopril * BP per unit protocol . Plan Code status: Full code per patient DVT prophylaxis: SCD's Stress ulcer prophylaxis: NA PT/OT notes: PT/OT pending Disposition: patient continues admission to the medical unit after breakthrough seizure patient progressing slowly back to baseline mental status PT and OT have been ordered for further evaluation may need evaluation by her assisted living facility prior to returning. Time Spent With Patient Time with patient: 15 - 25 minutes Subjective Date/time seen: 11/02/24 12:19 Interval history: Interval summary: This is a 74-year-old female with a significant past medical history of seizures, dementia, CVA, aneurysm status post shunt in 2001, melanoma, hyperlipidemia, hypertension who presented to the hospital the for evaluation of seizure activity from [address] [facility]. Workup in the hospital included a head CT which was negative for any acute intracranial changes. Imaging shunt series was negative for evidence of disc continuity of EXTENSION COURSE COORDINATOR shunt. UA With suspicious for urinary tract infection patient was then admitted for further evaluation and treatment of breakthrough seizures and UTI Subjective: 11/01/24 patient is alert and oriented x1 was able to tell me her name and that she was not in any pain resolves tell me she had not had a seizure overnight patient unable to tell me her date of or where she is with this appears to be her baseline. Still with some lethargy. Review of Systems Review of Systems: All systems reviewed & are unremarkable except as noted in HPI and below (Limited, A&O x1) ROS unobtainable: Yes unobtainable due to mental status Exam Const: General: comfortable and no acute distress Other: Lethargic pleasant female HENMT: Face/Nose/Sinus: Normal nares present Mouth: Yes moist mucous membranes Eyes: General: appearance normal, both eyes and all related structures Pupils: Equal, round and reactive pupils present Resp: Effort & Inspection: normal respiratory effort Auscultation: clear to auscultation bilaterally Cardio: Rate: regular rate Rhythm: regular rhythm Other: S1-S2 present without murmur, rub, ectopy GI: GI Palp: Yes Soft to palpation Auscultation: normal bowel sounds Skin: General skin exam: normal color and no rashes or lesions noted Wounds: no wounds Neuro: Cranial nerves: Yes Equal, round and reactive pupils present Motor exam (neuro): Abnormal motor strength present Other: A&O x1. Moving all extremities strength is weak BLE Extrem: General: normal to inspection Psych: Other: Blunted affect. Pleasant. withdrawn Objective Data Vital Signs Vital Signs: Vital Signs - 24 hr 11/01/24 12:36 11/01/24 12:55 11/01/24 15:33 Temperature 97.0 F L 97.1 F L Pulse Rate 60 58 L Respiratory Rate 16 16 Blood Pressure 136/61 114/52 L Pulse Oximetry 98 99 97 Oxygen Delivery Room Air 11/01/24 16:00 11/01/24 20:00 11/01/24 20:00 Temperature Pulse Rate 60 61 Respiratory Rate Blood Pressure Pulse Oximetry Oxygen Delivery Room Air 11/01/24 20:00 11/02/24 00:00 11/02/24 00:00 Temperature 97.3 F L 98.6 F Pulse Rate 56 L 55 L 59 L Respiratory Rate 18 16 Blood Pressure 122/73 133/76 Pulse Oximetry 98 96 Oxygen Delivery 11/02/24 04:00 11/02/24 04:00 11/02/24 07:59 Temperature 98.1 F 98.2 F Pulse Rate 53 L 51 L 63 Respiratory Rate 16 16 Blood Pressure 149/63 H 137/65 Pulse Oximetry 99 99 Oxygen Delivery 11/02/24 08:40 Temperature Pulse Rate Respiratory Rate Blood Pressure Pulse Oximetry 99 Oxygen Delivery Room Air Intake/Output Intake/Output: Intake & Output 10/30/24 10/31/24 11/01/24 11/02/24 23:59 23:59 23:59 23:59 Intake Total 350 580 410 Output Total 300 1000 975 Balance 29 -495 -562 Meds/Results Medications: Active Medications Generic Name Dose Route Start Last Admin Trade Name Freq PRN Reason Stop Dose Admin Acetaminophen 650 mg 10/31/24 15:23 Acetaminophen Elixir 325 Mg/10.15 Ml Udc PO Q6H PRN Mild Pain (1-3) or Fever Calcium Carbonate 500 mg 11/01/24 09:00 11/02/24 08:51 Calcium/Vitamin D 500 Mg/5 Mcg (200 I.U.) Tablet PO 500 mg Q12HR JANICE Administration Clopidogrel Bisulfate 75 mg 11/01/24 09:00 11/02/24 08:51 Clopidogrel Bisulfate 75 Mg Tablet PO 75 mg QAM JANICE Administration Escitalopram Oxalate 10 mg 11/01/24 09:00 11/02/24 08:51 Escitalopram Oxalate 10 Mg Tablet PO 10 mg DAILY JANICE Administration Furosemide 40 mg 11/01/24 08:00 11/02/24 08:51 Furosemide 40 Mg Tablet PO 40 mg DAILY@0800 JANICE Administration Ceftriaxone Sodium 1 gm in 50 mls @ 100 mls/hr 11/01/24 15:00 11/01/24 15:13 Rocephin 1 Gm/Ns 50 Ml IVPB 100 mls/hr Q24H JANICE Administration Levetiracetam 1,500 mg 11/01/24 09:00 11/02/24 08:52 Levetiracetam Oral Jahaira 500 Mg/5 Ml Udc PO 1,500 mg QAM JANICE Administration Levetiracetam 1,000 mg 11/01/24 21:00 11/01/24 20:35 Levetiracetam Oral Jahaira 500 Mg/5 Ml Udc PO 1,000 mg QHS JANICE Administration Lisinopril 5 mg 11/01/24 09:00 11/02/24 08:51 Lisinopril 5 Mg Tablet PO 5 mg DAILY JANICE Administration Memantine 10 mg 11/01/24 09:00 11/02/24 08:51 Memantine 10 Mg Tablet PO 10 mg Q12HR JANICE Administration Ondansetron HCl 4 mg 10/31/24 15:23 Ondansetron Inj 4 Mg/2 Ml Vial IV PUSH Q6H PRN Nausea And Vomiting Phenytoin 100 mg 11/01/24 09:00 11/02/24 12:11 Phenytoin 50 Mg Chew PO 100 mg TID JANICE Administration Polyethylene Glycol 17 gm 11/01/24 09:00 11/02/24 08:50 Polyethylene Glycol 3350 17 Gm Powd.Pack PO 17 gm DAILY JANICE Administration Potassium Chloride 10 meq 11/01/24 09:00 11/02/24 08:51 Potassium Chloride 20 Meq Packet (For Liquid) PO 10 meq QAM JANICE Administration Simvastatin 20 mg 11/01/24 21:00 11/01/24 20:35 Simvastatin 20 Mg Tablet PO 20 mg QHS JANICE Administration Tramadol HCl 50 mg 10/31/24 23:26 Tramadol Hcl (*Crx) 50 Mg Tablet PO Q6-8H PRN pain 4-6 Radiology Results: ITS Impressions Head CT 10/31/24 10:45 IMPRESSION: No interval change since 09/11/2024. No evidence of acute intracranial hemorrhage. Imaging Shunt Series 10/31/24 11:32 Impression: 1: No evidence for discontinuity of ventriculoperitoneal shunt. Quality VTE Prophylaxis VTE prophylaxis: mechanical ordered -Patient's previous records reviewed on admission -ER notes reviewed in detail on admission -discussed all findings and current treatment plan with patient/Family/POA -Consultations reviewed for recommendations -Patient's disposition for safe discharge discussed with outpatient case manager Dictation performed by [employer] direct speech recognition software, therefore calciminer variants and typographical errors may occur. Hospitalist MIPS Advance Care Plan I have confirmed that the patient's Advanced Care Plan is present, code status is documented, or surrogate decision maker is listed in patient medical record.: Yes Medication Reconciliation I have utilized all available resources to obtain, update and review the patients current medications (includes all prescriptions, OTC, herbals, cannabis, and nutritional supplements).: Yes The patient is not eligible for med reconciliation; the patient is in a emergent medical situation where delaying treatment would jeopardize the patients health.: No
[2024-11-02] MEDS: levETIRAcetam ORAL SOL 500 MG/5 ML UDC 1000 MG PO (20:30)
[2024-11-02] MEDS: SIMVASTATIN 20 MG TABLET PO (20:31)
[2024-11-03] VITALS (7 sets, daily range): BP systolic 112–142; BP diastolic 53–64; PULSE 51–70; RESP 16–18; TEMP 35.9–36.6; O2SAT 97–99
[2024-11-03 05:49] LABS: Hematocrit 35.7 % (37.0-47.0); Hemoglobin 11.5 g/dL (12.0-15.0); Mean Corpuscular HGB Conc 32.2 g/dl (32-36); Mean Corpuscular Hemoglobin 31.6 pg (26-34); Mean Corpuscular Volume 98.1 fl (80-100); Mean Platelet Volume 10.8 fl (7.4-10.4); Platelet Count Result 252 k/mm3 (150-375); Red Blood Count 3.64 M/mm3 (4.2-5.4); Red Cell Distribution Width 14.1 % (11.5-14.5); White Blood Count 6.1 K/mm3 (4.5-10.0)
[2024-11-03 06:09] LABS: Alanine Aminotransferase 18 U/L (6-35); Albumin Level 3.9 g/dL (3.5-5.1); Alkaline Phosphatase 108 U/L (38-126); Anion Gap 6 mmol/L (4-12); Aspartate Amino Transferase 19 U/L (14-36); Bilirubin,Total 0.3 mg/dL (0.2-1.3); Blood Urea Nitrogen 22 mg/dL (7-17); Calcium 9.7 mg/dL (8.4-10.2); Carbon Dioxide 29 mmol/L (22-30); Chloride 104 mmol/L (98-107); Estimated CRCL calculation 68 ml/min; Estimated Glomerular Filt Rate > 60; Glucose 100 mg/dL (65-110); Sodium 139 mmol/L (137-145)
[2024-11-03] MEDS: polyethylene glycoL 3350 17 GM POWD.PACK PO (08:31)
[2024-11-03] MEDS: POTASSIUM CHLORIDE 20 MEQ PACKET (FOR LIQUID) 10 MEQ PO (08:32)
[2024-11-03] MEDS: PHENYTOIN 50 MG CHEW 100 MG PO ×2 (08:32→12:37)
[2024-11-03] MEDS: levETIRAcetam ORAL SOL 500 MG/5 ML UDC 1500 MG PO (08:32)
[2024-11-03] MEDS: CALCIUM/VITAMIN D 500 MG/5 MCG (200 I.U.) TABLET PO (08:32)
[2024-11-03] MEDS: MEMANTINE 10 MG TABLET PO (08:33)
[2024-11-03] MEDS: FUROSEMIDE 40 MG TABLET PO (08:33)
[2024-11-03] MEDS: CLOPIDOGREL BISULFATE 75 MG TABLET PO (08:33)
[2024-11-03] MEDS: lisinopriL 5 MG TABLET PO (08:33)
[2024-11-03] MEDS: ESCITALOPRAM OXALATE 10 MG TABLET PO (08:33)
--- NOTE | 2024-11-03 12:21 | P.PNNEUR_ITS ---
Progress Note: A&P Assessment and Plan (1) Breakthrough seizure: Code(s): G40.919 - Epilepsy, unspecified, intractable, without status epilepticus Status: Acute (2) Status post ventriculoatrial shunt placement: Code(s): Z98.2 - Presence of cerebrospinal fluid drainage device Status: Acute Plan I noted her urine cultures negative. Her son shunt on the right side is functioning. Her Dilantin level was the level and Keppra level was 27 and urine cultures are negative. Out suggest continue the same treatment from seizures point of view at this time. I noted that she carries diagnosis of dementia and stroke and she is currently on Plavix and memantine and simvastatin in addition to his anticonvulsants. I shall be glad to see her in Neurology Clinic from the point of view of seizures various neurological problem unless he is already following with somebody us were. Subjective Date/time seen: 11/03/24 12:21 Interval history: The patient is 74-year-old with history of seizure disorder and a ventriculoper itoneal shunt on the right side. She denies any specific symptoms. She has not had any seizures in the past 24 hours. She is currently on Keppra 2500 mg a day and Dilantin 300 mg a day. She is not able to give me much more in the way of history with regard to the number of seizures she has had in the last 6 months or so. Review of Systems Review of Systems: All systems reviewed & are unremarkable except as noted in HPI and below Exam Narrative: Fully conscious alert. No aphasia or dysarthria. Cranial nerves injured testing intact. Motor system moving both upper lower limbs was normal strength comparable on both sides. No involuntary movements are seen. No cogwheeling or tremor. Shunt was noted on the right side which seems to pump well. Objective Data Vital Signs Vital Signs: Vital Signs - 24 hr 11/02/24 14:00 11/02/24 16:00 11/02/24 16:48 Temperature 97.0 F L 97.0 F L Pulse Rate 59 L 55 L 56 L Respiratory Rate 16 16 Blood Pressure 111/50 L 120/54 L Pulse Oximetry 97 97 Oxygen Delivery 11/02/24 20:00 11/02/24 20:00 11/02/24 22:11 Temperature 97.1 F L Pulse Rate 61 56 L Respiratory Rate 15 Blood Pressure 108/57 L Pulse Oximetry 97 Oxygen Delivery Room Air 11/03/24 00:00 11/03/24 02:00 11/03/24 04:00 Temperature 97.3 F L Pulse Rate 56 L 56 L 51 L Respiratory Rate 18 Blood Pressure 112/53 L Pulse Oximetry 97 Oxygen Delivery 11/03/24 06:00 11/03/24 08:00 Temperature 97.4 F L 97.8 F Pulse Rate 53 L 55 L Respiratory Rate 18 18 Blood Pressure 126/55 L 142/55 H Pulse Oximetry 99 97 Oxygen Delivery Intake/Output Intake/Output: Intake & Output 10/31/24 11/01/24 11/02/24 11/03/24 23:59 23:59 23:59 23:59 Intake Total 350 630 820 240 Output Total 300 1000 1175 700 Balance 25 -370 -355 -460 Meds/Results Medications: Active Medications Generic Name Dose Route Start Last Admin Trade Name Freq PRN Reason Stop Dose Admin Acetaminophen 650 mg 10/31/24 15:23 Acetaminophen Elixir 325 Mg/10.15 Ml Udc PO Q6H PRN Mild Pain (1-3) or Fever Calcium Carbonate 500 mg 11/01/24 09:00 11/03/24 08:32 Calcium/Vitamin D 500 Mg/5 Mcg (200 I.U.) Tablet PO 500 mg Q12HR JANICE Administration Clopidogrel Bisulfate 75 mg 11/01/24 09:00 11/03/24 08:33 Clopidogrel Bisulfate 75 Mg Tablet PO 75 mg QAM JANICE Administration Escitalopram Oxalate 10 mg 11/01/24 09:00 11/03/24 08:33 Escitalopram Oxalate 10 Mg Tablet PO 10 mg DAILY JANICE Administration Furosemide 40 mg 11/01/24 08:00 11/03/24 08:33 Furosemide 40 Mg Tablet PO 40 mg DAILY@0800 JANICE Administration Ceftriaxone Sodium 1 gm in 50 mls @ 100 mls/hr 11/01/24 15:00 11/02/24 15:32 Rocephin 1 Gm/Ns 50 Ml IVPB 100 mls/hr Q24H JANICE Administration Levetiracetam 1,500 mg 11/01/24 09:00 11/03/24 08:32 Levetiracetam Oral Jahaira 500 Mg/5 Ml Udc PO 1,500 mg QAM JANICE Administration Levetiracetam 1,000 mg 11/01/24 21:00 11/02/24 20:30 Levetiracetam Oral Jahaira 500 Mg/5 Ml Udc PO 1,000 mg QHS JANICE Administration Lisinopril 5 mg 11/01/24 09:00 11/03/24 08:33 Lisinopril 5 Mg Tablet PO 5 mg DAILY JANICE Administration Memantine 10 mg 11/01/24 09:00 11/03/24 08:33 Memantine 10 Mg Tablet PO 10 mg Q12HR JANICE Administration Ondansetron HCl 4 mg 10/31/24 15:23 Ondansetron Inj 4 Mg/2 Ml Vial IV PUSH Q6H PRN Nausea And Vomiting Phenytoin 100 mg 11/01/24 09:00 11/03/24 08:32 Phenytoin 50 Mg Chew PO 100 mg TID JANICE Administration Polyethylene Glycol 17 gm 11/01/24 09:00 11/03/24 08:31 Polyethylene Glycol 3350 17 Gm Powd.Pack PO 17 gm DAILY JANICE Administration Potassium Chloride 10 meq 11/01/24 09:00 11/03/24 08:32 Potassium Chloride 20 Meq Packet (For Liquid) PO 10 meq QAM JAINCE Administration Simvastatin 20 mg 11/01/24 21:00 11/02/24 20:31 Simvastatin 20 Mg Tablet PO 20 mg QHS JANICE Administration Tramadol HCl 50 mg 10/31/24 23:26 Tramadol Hcl (*Crx) 50 Mg Tablet PO Q6-8H PRN pain 4-6 Radiology Results: ITS Impressions Head CT 10/31/24 10:45 IMPRESSION: No interval change since 09/11/2024. No evidence of acute intracranial hemorrhage. Imaging Shunt Series 10/31/24 11:32 Impression: 1: No evidence for discontinuity of ventriculoperitoneal shunt. Labs Labs: Laboratory Results - last 24 hr 11/03/24 05:24 WBC 6.1 RBC 3.64 L Hgb 11.5 L Hct 35.7 L MCV 98.1 MCH 31.6 MCHC 32.2 RDW 14.1 Plt Count 252 MPV 10.8 H Sodium 139 Potassium 4.0 Chloride 104 Carbon Dioxide 29 Anion Gap 6 BUN 22 H D Creatinine 0.64 L Estim Creat Clear Calc 68 Estimated GFR > 60 Glucose 100 Calcium 9.7 Magnesium 2.0 Total Bilirubin 0.3 AST 19 ALT 18 Alkaline Phosphatase 108 Total Protein 7.0 Albumin 3.9
--- NOTE | 2024-11-03 13:55 | P.DS_ITS ---
DS: Admitting Diagnosis Discharge Date 11/03/2024 Admitting Diagnosis Breakthrough seizure/UTI DS: Discharge Diagnosis Discharge Diagnosis (1) Breakthrough seizure: Code(s): G40.919 - Epilepsy, unspecified, intractable, without status epilepticus Status: Acute (2) Acute UTI: Code(s): N39.0 - Urinary tract infection, site not specified Status: Acute (3) HTN (hypertension): Qualifiers: Hypertension type: essential hypertension Qualified Code(s): I10 - Essential (primary) hypertension Code(s): I10 - Essential (primary) hypertension Status: Acute Assessment and Plan: * . Plan Disposition: Discharge to Assisted Living DS: Summary Hospital Course Reason for hospitalization: Breakthrough seizure/UTI Hospital Course: 74 y/o F with PMH of seizures, dementia, CVA, aneurysm s/p shunt (2001), m remi, HLD, HTN presents here with a breakthrough seizure. Patient had presented from [facility] via EMS on 10/31 for further evaluation of recurrent seizure activity. The patient has a past medical history significant for dementia, stroke with residual deficits, aneurysm with shunt placement in 2001, and seizures. At baseline, the patient's facility reports she is verbal and able to use a wheelchair. Of note, they reported she had not received her morning medications. The patient is currently reporting no complaints. Denies fever, chills, body aches, dizziness, headache, focal numbness/weakness, abdominal pain, dysuria, or urinary frequency. Initial VS at presentation: 98? F, HR 81, RR 20, 151/86, and 96% on RA. ED workup showed: WBC 10.6, hemoglobin 11.9, no significant electrolyte derangements, creatinine 0.54 and GFR >60, glucose 122, UA suggestive of UTI, viral PCR negative. Head CT showed no interval change since 09/11/2024, no evidence of acute intracranial hemorrhage. Shunt series XR showed no evidence of discontinuity of CHEMIST HELPER shunt. Head CT showed no interval change and no evidence of acute intracranial hemorrhage. Shunt series XR showed no evidence of discontinuity CHEMIST HELPER shunt. Given Keppra 1.5G IV as loading dose. Check Keppra and Dilantin levels. Neurology consulted, on service on 11/01. Keppra and Dilantin continued on admission. May have had breakthrough secondary to active infection, UTI suspected. Alert x1 but answering questions appears close to baseline still lethargic with bilateral lower extremity weakness. patient was weak postictal PT/OT had been ordered she was seen the following day with no further weakness or deficits and back to baseline mentally. UA had not grown anything but due to nitrate positive and seizure and did treat empirically with Augmentin for 4 more days after she had received ceftriaxone IV. Patient was discharged back to assisted living in no acute complaints at time of discharge will continue current m edication for seizures and follow-up with her Neurologist outpatient. Status at Discharge Functional status at discharge: independent ambulation Overall status at discharge: patient is back to baseline Time Spent with Patient Time attestation: Total time spent providing and/or coordinating discharge services: Time spent: Greater than 30 minutes Exam Const: General: comfortable and no acute distress Other: Alert at baseline answering questions HENMT: Face/Nose/Sinus: Normal nares present Mouth: Yes moist mucous membranes Eyes: General: appearance normal, both eyes and all related structures Sclera: sclerae normal Pupils: Equal, round and reactive pupils present EOM: EOMs intact bilaterally Resp: Effort & Inspection: normal respiratory effort Auscultation: clear to auscultation bilaterally Cardio: Rate: regular rate Rhythm: regular rhythm Other: S1-S2 present without murmur, rub, ectopy GI: Auscultation: normal bowel sounds Other: Abdomen soft, nondistended, nontender. Normoactive bowel sounds in all quadrants. Skin: General skin exam: normal color and no rashes or lesions noted Wounds: no wounds Neuro: Cranial nerves: Yes Equal, round and reactive pupils present Motor exam (neuro): 5/5 motor strength present throughout Sensory Exam: normal sensation Other: A&O x1. Moving all extremities Extrem: General: normal to inspection Psych: Other: Blunted affect. Pleasant. withdrawn DS: Data Data Completed and Pending Labs on day of discharge: Labs from last 24 hours 11/03/24 05:24 WBC 6.1 RBC 3.64 L Hgb 11.5 L Hct 35.7 L MCV 98.1 MCH 31.6 MCHC 32.2 RDW 14.1 Plt Count 252 MPV 10.8 H Sodium 139 Potassium 4.0 Chloride 104 Carbon Dioxide 29 Anion Gap 6 BUN 22 H D Creatinine 0.64 L Estim Creat Clear Calc 68 Estimated GFR > 60 Glucose 100 Calcium 9.7 Magnesium 2.0 Total Bilirubin 0.3 AST 19 ALT 18 Alkaline Phosphatase 108 Total Protein 7.0 Albumin 3.9 Discharge Plan Discharge Attending physician on discharge: Sonido Bocanegra Consulting providers: Oliverio Mckay; Norah Aponte; Sara Nagy; Elia Kelley; Blake Carlson; Erick Nunez; Ty Camp Discharging Clinician: Norah Aponte Anticipated Discharge Date/Time: 11/03/24 09:47 Patient Disposition: NH Fdc/Asst Living Activity: may shower and as tolerated Diet: heart healthy Discharge Instructions: Seizures: * Seek immediate attention for breakthrough seizures * follow-up with Neurology outpatient as scheduled * Continue with currently prescribed medication UTI: * I have prescribed oral antibiotic please complete as indicated How can you care for yourself at home? ? Keep track of any new symptoms or changes in your symptoms. ? Rest until you feel better. ? Be safe with medicines. Take your medicines exactly as prescribed. Call your doctor if you think you are having a problem with your medicine. ? Do not drive after taking a prescription pain medicine. ? Ensure to follow-up with primary care physician as indicated and provide updated medication list provided to you at discharge. When should you call for help? Call 911 anytime you think you may need emergency care. For example, call if: ? You passed out (lost consciousness). Call your doctor now or seek immediate medical care if: ? You have new symptoms like fever, difficulty breathing, Chest pain, vomiting, or rash. ? You have new or different pain. ? You are confused and are having trouble thinking clearly. ? Your symptoms are getting worse. Watch closely for changes in your health, and be sure to contact your doctor if: ? You do not get better as expected. Patient Instructions: Antibiotic Form, Epilepsy (DC), Recurrent Seizures in Adults (DC), Urinary Tract Infection in Older Adults (DC) Patient Language: Swedish Stand Alone Forms: General Discharge Information, [facility] Discharge Follow-up/Referrals: Oliverio Mckay MD [Physician] - Keep Reg. Scheduled Appt. (Dr. Albino Rowe) Vinny Storm, DO [Primary Care Provider] - 2 Weeks Discharge Medications: New amoxicillin-pot clavulanate 875-125 mg tablet 1 tablet PO Q12H Qty: 6 0RF Continued polyethylene glycol 3350 [Miralax] 17 gram/dose powder See Rx Instructions .ROUTE .COMPLEX Rx Instructions: Take (17G) by oral route everyday mixed with 8oz. water, juice, soda, coffee or tea; escitalopram oxalate [Lexapro] 10 mg tablet 10 mg PO DAILY Qty: 30 7RF tramadol 50 mg tablet 50 mg PO Q6-8H PRN (Reason: pain) acetaminophen 500 mg tablet 1,000 mg PO Q8H PRN (Reason: pain) calcium carbonate-vitamin D3 600 mg(1,500mg) -400 unit tablet See Rx Instructions .ROUTE .COMPLEX Qty: 180 3RF Dose Instruction: TAKE 1 TABLET BY MOUTH EVERY MORNING AND BEDTIME Rx Instructions: TAKE 1 TABLET BY MOUTH EVERY MORNING AND BEDTIME potassium chloride 20 mEq/15 mL liquid 10 meq PO DAILY Qty: 1200 2RF clopidogrel [Plavix] 75 mg tablet 75 mg PO .COMPLEX Qty: 90 2RF Rx Instructions: 75 mg PO daily in the am; *CAN BE CRUSHED* furosemide 40 mg tablet See Rx Instructions .ROUTE .COMPLEX Qty: 90 2RF Rx Instructions: Take 1 tablet by mouth every morning at 8am ; *CAN BE CRUSHED* levetiracetam 100 mg/mL solution See Rx Instructions .ROUTE .COMPLEX Qty: 750 3RF Rx Instructions: Increase dose to 15ml in the morning and 10ml at bedtime. lisinopril 5 mg tablet 5 mg PO DAILY Qty: 90 2RF Rx Instructions: *CAN BE CRUSHED* memantine 10 mg tablet 10 mg PO BID Qty: 180 2RF Rx Instructions: *CAN BE CRUSHED* simvastatin 20 mg tablet 20 mg PO .Daily in the Evening Qty: 90 2RF Rx Instructions: *CAN BE CRUSHED* phenytoin 50 mg tablet,chewable 100 mg PO TID Qty: 540 1RF Date of admission: 10/31/24 14:59 Primary Care Provider: Vinny Storm Admitting Provider: Cornelius Hampton Attending physician on admission: Sherry Turcios Condition: Stable Quality VTE Prophylaxis VTE prophylaxis: mechanical ordered Hospitalist MIPS Heart Failure (Exclusion) Patient has history of Heart Transplant or Left Ventricular Assistive Device?: No IF YES, STOP HERE Heart Failure (Qualifier) Patient has current or prior documentation of LVEF less than or equal to 40%, or mod/servere depressed LVSF?: No IF NO, STOP HERE
[2024-11-04 06:53] LABS: Levetiracetam Keppra 29.8 mcg/mL (6.0-46.0)
== END 2024-11-03 16:32 ==
LOC: ANHED 14:58 → ANH3MED 11-01 07:09
PROVIDERS: Nurse Practitioner Family; Student in an Organized Health Care Education/Training Program; Admitting Provider General Practice; Emergency Provider Emergency Medicine; PCP Internal Medicine; Visit Provider Nurse Practitioner Acute Care
DX: G40.919 Epilepsy, unspecified, intractable, without status epilepticus (principal); N39.0 Urinary tract infection, site not specified; I10 Essential (primary) hypertension; F01.50 Vascular dementia, unspecified severity, without behavioral disturbance, psychotic disturbance, mood disturbance, and anxiety; I67.9 Cerebrovascular disease, unspecified; E78.5 Hyperlipidemia, unspecified; M19.90 Unspecified osteoarthritis, unspecified site; Z20.822 Contact with and (suspected) exposure to COVID-19; Z85.820 Personal history of malignant melanoma of skin; Z86.73 Personal history of transient ischemic attack (TIA), and cerebral infarction without residual deficits; Z86.79 Personal history of other diseases of the circulatory system; Z87.891 Personal history of nicotine dependence; Z79.899 Other long term (current) drug therapy; Z98.2 Presence of cerebrospinal fluid drainage device
CPT/HCPCS: 36415; 70250; 70450; 71045; 74018; 80048; 80053; 80177; 80185; 81001; 83690; 83735; 84100; 85025; 85027; 87086; 87637; 93005; 96365; 96375; 97166; 99285; A9270; G0378; J0696; J1953; J7030

== ENCOUNTER 2025-04-20 09:58 | Emergency (ER) | payer OTHER, SELFPAY ==
--- OUTSIDE RECORDS SUMMARY | 2009-12-12 19:00 | XMS_ITS | Continuity of Care Document ---
Author Organization [facility] Address [address] [place] [address] Phone Care Team Providers Care Wildland [employer] Specialist Name Role Phone [facility] Unavailable Unavail able No Anderson Unavailable Unavailable Procedures Procedure Date Vision Svcs Frames Purchases BF Polycarb Sphcyl [place] To +/-4d .12-2d Anti-reflective Coating Tax - Medical Eye Exam & Treatment Refraction Office/outpatient Visit, [facility] Advance Directives Directive Yes / No Effective Date File Name No Information Encounters Encounter Description Practice Location Reason(s) For Visit Diagnoses Date Provider Providers Copied on Encounter [facility], [address] [place] [address] [address], [place], [place], [id number], [place] tel:[phone] [facility] No Information 0 [facility]. [address], [address], [place], [place], [id number], [place]. tel:[phone] Referring Provider: Santi Barlow, [address], [place], [address]. tel:[phone] pena Provider: No Anderson, [address] [place], [address]. tel:[phone] [facility], [address], [place], [place], [id number], [place] tel:[phone] [facility] No Information -201 0 Yen Eliashil. [address] [place] [address], [address], [place]. tel:[phone] Referring Provider: Santi Barlow, [address] [place] [address], [facility]. tel:[phone] Office/outpa tient Visit, [facility], [address], [place], [place], [id number], [place] tel:[phone] [place] [address] No Information 2-200 9 Yen Santi. [address] [place] [address], [facility], [place]. tel:[phone] Referring Provider: Santi Barlow, [address] [place] [address], [facility]. tel:[phone] Family History Family Member Type Diagnosis Age At Onset No Information Payers Payer name Insurance type Covered alliance party ID Authoriza tion(s) No Information Social History Type Description Quantity Date Captured Comments Sex Female Smoking Status No Information Chief Complaint And Reason For Visit No Information Reason For Referral Reason For Referral No Information History Of Present Illness Encounter Date Complaint History Of Prese nt Illness No Information Functional Status Date Functional Assessmen t No Information Instructions Date Instruction Additional Infor mation No Information Assessments Type Assessment Date No Information Patient Care Teams Name Effective Dates (start - stop) Status Members No Information
[2025-04-20] VITALS (15 sets, daily range): BP systolic 135–172; BP diastolic 55–116; PULSE 55–63; RESP 10–20; TEMP 36.6; O2SAT 98–100
--- NOTE | ~2025-04-20 | XR_ITS ---
EXAMINATION: XR shunt series, 04/20/2025 12:00 CDT HISTORY: seizure COMPARISON: No comparisons available. Technique: Multiple view. Findings: Visualized portions of the right-sided shunt appear grossly intact. 18 within the pelvis. The remaining visualized soft tissues and osseous structures demonstrate mild cardiomegaly with COPD changes. There are metallic radiopaque foreign bodies overlying the left upper hemithorax. Severe degenerative changes with scoliosis of the visualized thoracolumbar spine. Nonspecific bowel gas pattern. IMPRESSION: Visualized shunt appears intact Reviewed, dictated and finalized at location P.
--- NOTE | ~2025-04-20 | CT_ITS ---
EXAMINATION: CT brain tammy andrews, 04/20/2025 12:08 CDT HISTORY: seizure COMPARISON: No comparisons available. Technique: Axial images obtained of the brain without contrast. One or more of the following dose reduction techniques were used: automated exposure control, adjustment of the mA and/or kV according to patient size, use of iterative reconstruction technique. Findings: There are remote bilateral basal ganglia lacunar infarcts. No acute infarct or hemorrhage. No midline shift or mass effect. No extra-axial fluid collections. Mastoid air cells unremarkable. Sinuses and orbits unremarkable. No acute fracture. There is a right-sided SHEET TAILER shunt terminating in the right frontal horn, there is no hydrocephalus, sequelae of previous intervention noted with encephalomalacia in the left frontal lobe and the right frontal lobe. Impression: 1.No acute intracranial abnormality. Reviewed, dictated and finalized at location P. Impression: 1.No acute intracranial abnormality.
--- NOTE | 2025-04-20 10:10 | ECG_ITS ---
Test Date: 2025-04-20 10:10:19 Measurements Intervals [place] Rate: 60 P: 55 TN: 174 QRS: 21 QRSD: 93 T: 44 QT: 414 QTc: 417 Interpretive Statements SINUS RHYTHM INCOMPLETE RIGHT BUNDLE BRANCH BLOCK LOW QRS VOLTAGE IN PRECORDIAL LEADS BASELINE ARTIFACT- I, II, III, AVR, AVL, AVF, V1-V6 BORDERLINE ECG Compared to ECG 10/31/2024 09:08:32 NO SIGNIFICANT CHANGE Electronically Signed On 04-22-2025 13:57:27 CDT by Elia Kelley D.O.
--- NOTE | 2025-04-20 10:26 | ED_ITS ---
HPI - Seizure General Chief Complaint: Seizure Stated Complaint: seizure Time Seen by Provider: 04/20/25 10:16 Source: patient, EMS, RN notes reviewed and old records reviewed Mode of arrival: EMS Limitations: dementia History of Present Illness HPI Narrative: This is is a 75 year old female with history of dementia and epilepsy who presents for evaluation after having a seizure. EMS reports she had 45 second seizure. Patient is at her baseline of Alert and oriented to person. EMS reported to nursing patient had seizure while eating. Nursing states patient did not seem to be postictal. Seizure History: Yes Related Data Allergies Allergy/AdvReac Type Severity Reaction Status Date / Time codeine Allergy Unknown Hives Verified 04/20/25 10:09 COUNTS INCLUDE 234 BEDS AT THE [facility] Past Medical History Medical History Unspecified convulsions Other sequelae following nontraumatic subarachnoid hemorrhage Other cerebrovascular disease Vascular dementia, unspecified severity, without behavioral disturbance, psychotic disturbance, mood disturbance, and anxiety Anemia History of stroke with residual deficit Aneurysm Shunt, 2001 Stroke Melanoma Arthritis Seizures HLD (hyperlipidemia) HTN (hypertension) Family History Family History Father Family history of heart disease in male family member before age 55 Family history of cardiovascular disease Hypertension Mother Cerebrovascular accident Social History Social History Smoking status: Former smoker Alcohol intake: unknown Substance use: unknown Do You Feel Safe in your Home?: Yes Lack of Transportation: No Lack of Food: Never True Current Housing: I Have Housing Concerned About Future Housing: No Difficulty Paying Gas/Electric Bills: No Difficulty Paying for Meds: No Currently Unemployed: No Education: High School Diploma/GED Difficulty w/ Childcare or Family Care: No Living arrangements: long term Additional living arrangements comments: [facility][1] concerns: No (unknown) Exam 2 Const: General: no acute distress and alert Nutritional Appearance: well nourished Other: oriented to person HENMT: Head: normal to inspection Face and sinus: normal facial exam and sinuses nontender Mouth: Yes Normal oral and palatal mucosa present, Yes lip normal and Yes moist mucous membranes Eyes: Pupils: Equal, round and reactive pupils present EOM: EOMs intact bilaterally Neck: Neck: normal visual inspection Chest: Chest palpation & inspection: normal inspection of the chest Resp: Effort & Inspection: normal respiratory effort Auscultation: clear to auscultation bilaterally Cardio: Rate: regular rate Rhythm: regular rhythm Heart sounds: no murmurs GI: GI Palp: Yes Soft to palpation, No Tenderness to palpation present (GI), No Guarding due to palpation present (GI) and No Rigid due to palpation A uscultation: normal bowel sounds Neuro: Other: at baseline oriented to person, moving all extremities Psych: Appearance: grossly normal Mental Status: mental status grossly normal Affect: normal affect Course Reevaluation(s) Reevaluation #1: Patient is at her baseline. She was given dose of dilantin as her dilantin level is borderline low. She is stable for discharge. Date: 04/20/25 Time: 14:33 Consultations Consultation #1: I spoke with Dr. Carlson with neurology. He recommend that her dilantin be increased to 130 mg in the morning and 200 mg in the evening. He also recommends increasing Keppra to 1500 mg BID. He recommends giving her dilantin 400 mg now Date: 04/20/25 Time: 13:03 Vital Signs Vital signs: Vital Signs Temperature 97.9 F 04/20/25 10:02 Pulse Rate 63 04/20/25 10:02 Respiratory Rate 15 04/20/25 10:02 Blood Pressure 172/72 H 04/20/25 10:02 Pulse Oximetry 100 04/20/25 10:02 Oxygen Delivery Room Air 04/20/25 10:02 Temperature 97.9 F 04/20/25 10:02 Pulse Rate 58 L 04/20/25 13:45 Respiratory Rate 16 04/20/25 13:45 Blood Pressure 140/116 H 04/20/25 12:32 Pulse Oximetry 100 04/20/25 13:37 Oxygen Delivery Room Air 04/20/25 10:08 MDM - Seizure MDM Narrative Medical decision making narrative: Patient with history of dementia, epilepsy, CHAIR FINISHER shunt. PAtient is at baseline. Given the history, I ordered CT brain, shunt series, dilantin level, urinalysis. CT brain is negative for hydrocephalus. CHAIR FINISHER shunt appears intact. Dilantin level at 10. Keppra level pending. Urinalysis only nitrate with no wbc. Culture pending. I do not think she needs antibiotics at this time. Previous UA with no grown. NEurology consulted. Recommended to increase both dilantin and keppra. Patient at baseline so discharged back to facility. Differential Diagnosis Differential diagnosis: Likely epileptic seizure and other (infection, dehydration) Medical Records Attestation: I reviewed the patient's medical records. Lab Data Attestation: I reviewed the patient's lab results. 04/20/25 10:55 04/20/25 10:55 Labs: Lab Results 04/20/25 04/20/25 Range/Units 10:12 10:55 WBC 7.2 (4.5-10.0) K/mm3 RBC 4.03 L (4.2-5.4) M/mm3 Hgb 12.6 (12.0-15.0) g/dL Hct 38.7 (37.0-47.0) % MCV 96.0 (80-100) fl MCH 31.3 (26-34) pg MCHC 32.6 (32-36) g/dl RDW 12.6 (11.5-14.5) % Plt Count 273 (150-375) k/mm3 MPV 10.4 (7.4-10.4) fl Immature Gran % (Auto) 0.4 (0-0.5) % Neut % (Auto) 69.4 (45.5-73.1) % Lymph % (Auto) 20.5 (18.3-44.2) % [place] % (Auto) 6.7 (2.6-8.5) % Eos % (Auto) 2.2 (0-4.4) % Baso % (Auto) 0.8 (0.2-1.2) % Lymph # (Auto) 1.47 (0.9-3.2) K/mm3 [place] # (Auto) 0.5 (0.1-0.6) K/mm3 Eos # (Auto) 0.2 (0-0.3) K/mm3 Baso # (Auto) 0.1 (0.0-0.1) K/mm3 Abs Immat Gran (auto) 0.03 (0.00-0.031) K/mm3 Absolute Neuts (auto) 5.0 (1.3-6.7) K/mm3 Absolute Nucleated RBC 0.000 (0.0-0.012) K/mm3 Nucleated RBC % 0.0 (0.0-0.2) % Sodium 140 (137-145) mmol/L Potassium 4.2 (3.4-5.0) mmol/L Chloride 103 (98-107) mmol/L Carbon Dioxide 31 H (22-30) mmol/L Anion Gap 6 (4-12) mmol/L BUN 12 D (7-17) mg/dL Creatinine 0.59 L (0.7-1.0) mg/dL Estim Creat Clear Calc 60 ml/min Estimated GFR > 60 (59 - ) Glucose 117 H (65-110) mg/dL POC Capillary Glucose 116 H (65-105) mg/dl Calcium 9.4 (8.4-10.2) mg/dL Total Bilirubin 0.4 (0.2-1.3) mg/dL AST 21 (14-36) U/L ALT 23 (6-35) U/L Alkaline Phosphatase 128 H (38-126) U/L Total Protein 7.0 (6.3-8.2) g/dL Albumin 4.2 (3.5-5.1) g/dL Urine Color Yellow (Yellow) Urine Appearance Cloudy H (Clear) Urine pH 8.0 (5.0-9.0) Ur Specific [place] 1.010 (1.001-1.035) Urine Protein Negative (Negative) mg/dL Urine Glucose (UA) Negative (Negative) mg/dL Urine Ketones Negative (Negative) mg/dL Ur Blood (Man) Negative (Negative) Urine Nitrate Positive H (Negative) Urine Bilirubin Negative (Negative) Urine Urobilinogen 0.2 (<2.0) mg/dL Leukocyte Esterase Rfl Negative (Negative) IRAIS/UL Urine RBC 0-2 (0-2) /hpf Urine WBC 0-5 (0-3) /hpf Ur Squamous Epith Cells None seen (Few) /hpf Urine Bacteria 4+ /hpf Urine Casts 0-2 Phenytoin 10 (10-20) ug/mL Levetiracetam Pending Imaging Data Radiologist's impression: ITS Impressions Head CT 04/20/25 12:18 Impression: 1.No acute intracranial abnormality. Imaging Shunt Series 04/20/25 12:30 IMPRESSION: Visualized shunt appears intact Discharge Plan Discharge Clinical Impression: Seizures Patient Disposition: Home Condition: Stable Instructions: Epilepsy (ED) Additional Instructions: You need to increase your Keppra to 1500 mg in the morning and 1500 mg in the evening. You also need to increased Dilantin to 130 mg in the morning and 200 mg in the evening. Patient Language: Niuean Prescriptions: No Action calcium carbonate-vitamin D3 600 mg(1,500mg) -400 unit tablet See Rx Instructions .ROUTE .COMPLEX Qty: 180 3RF Dose Instruction: TAKE 1 TABLET BY MOUTH EVERY MORNING AND BEDTIME Rx Instructions: TAKE 1 TABLET BY MOUTH EVERY MORNING AND BEDTIME clopidogrel [Plavix] 75 mg tablet 75 mg PO ONCE Qty: 90 0RF Rx Instructions: NEEDS APPOINTMENT FOR FURTHER REFILLS furosemide 40 mg tablet 40 mg PO DAILY Qty: 90 0RF Rx Instructions: NEEDS APPOINTMENT FOR FURTHER REFILLS lisinopril 5 mg tablet 5 mg PO DAILY Qty: 90 0RF Rx Instructions: NEEDS APPOINTMENT FOR FURTHER REFILLS phenytoin 50 mg tablet,chewable 100 mg PO TID Qty: 540 1RF Rx Instructions: NEEDS APPOINTMENT FOR FURTHER REFILLS escitalopram oxalate [Lexapro] 10 mg tablet 10 mg PO DAILY Qty: 90 0RF Rx Instructions: NEEDS APPOINTMENT FOR FURTHER REFILLS polyethylene glycol 3350 [Miralax] 17 gram/dose powder See Rx Instructions .ROUTE .COMPLEX Qty: 476 0RF Rx Instructions: Take (17G) by oral route everyday mixed with 8oz. water, juice, soda, coffee or tea; memantine 10 mg tablet 10 mg PO BID Qty: 180 0RF Rx Instructions: NEEDS APPOINTMENT FOR FURTHER REFILLS levetiracetam 100 mg/mL solution See Rx Instructions .ROUTE .COMPLEX Qty: 750 0RF Rx Instructions: Increase dose to 15ml in the morning and 10ml at bedtime. potassium chloride 20 mEq/15 mL liquid 10 meq PO DAILY Qty: 450 0RF simvastatin 20 mg tablet 20 mg PO .COMPLEX Qty: 90 0RF Rx Instructions: NEEDS APPOINTMENT FOR FURTHER REFILLS Frequency: Daily in the Evening acetaminophen 500 mg tablet 1,000 mg PO Q8H PRN (Reason: pain) Qty: 120 0RF Follow-up/Referrals: Vinny Storm, [Primary Care Provider, Internal Medicine]
[2025-04-20 11:02] LABS: Hematocrit 38.7 % (37.0-47.0); Hemoglobin 12.6 g/dL (12.0-15.0); Immature Granulocyte Percent A 0.4 % (0-0.5); Lymphocytes Absolute Auto 1.47 K/mm3 (0.9-3.2); Mean Corpuscular HGB Conc 32.6 g/dl (32-36); Mean Corpuscular Hemoglobin 31.3 pg (26-34); Mean Corpuscular Volume 96.0 fl (80-100); Nucleated Red Blood Cells Absolute Auto 0.000 K/mm3 (0.0-0.012); Nucleated Red Blood Cells Perc 0.0 % (0.0-0.2); Platelet Count Result 273 k/mm3 (150-375); Red Blood Count 4.03 M/mm3 (4.2-5.4); White Blood Count 7.2 K/mm3 (4.5-10.0)
[2025-04-20 11:09] LABS: Add Urine Microscopic? YES; Appearance Urine Cloudy (Clear); Glucose Urine UA Negative (Negative); Leukocyte Esterase Ur Negative LEU/UL (Negative); Nitrate Urine Positive (Negative); Non Pathogenic Casts 0-2; Specific Grav Ur 1.010 (1.001-1.035)
--- OUTSIDE RECORDS SUMMARY | 2025-04-20 11:10 | XMS_ITS | Clinical Summary ---
Author Organization [facility] Address [address] [place] [address] Care Team Providers Care Machine Set Up Technician Name Role Phone Vinny Storm DO Primary Care Provider [phone] Source Comments [facility],non-owned Affiliates and Associated Physician Practices is amultiple site organization consisting of ambulatory clinics and hospital sitesin [place], [place], [place] and [place]. This disclosure is being madepursuant to the Care Everywhere program and may not contain all information available regarding this patient. Last updated 18.[facility] Allergies No known active allergies Medications * Be aware that medications may not be up to date on this document. Alwaysverify current medications with the patient. 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 Gender Identity Not on file Sexual Orientation Not on file Last Filed Vital Signs Vital Sign Reading Time Taken Comments Blood Pressure 135/14 09/14/2023 7:00 PM SENIOR COGNOS DEVELOPER Pulse 59 09/14/2023 7:00 PM SENIOR COGNOS DEVELOPER Temperature 37.1 C (98.7 F) 09/14/2023 8:50 AM SENIOR COGNOS DEVELOPER Respiratory Rate 18 09/14/2023 7:00 PM SENIOR COGNOS DEVELOPER Oxygen Saturation 96% 09/14/2023 7:00 PM SENIOR COGNOS DEVELOPER Inhaled Oxygen Concentration - - Weight 82.6 kg (182 lb) 09/14/2023 8:50 AM SENIOR COGNOS DEVELOPER Height 172.7 cm (5' 8) 09/14/2023 8:50 AM SENIOR COGNOS DEVELOPER Body Mass Index 27.67 09/14/2023 8:50 AM SENIOR COGNOS DEVELOPER Plan of Treatment Health Maintenance Due Date [...] 2001 ZOSTER VACCINE (1 of 2) 2001 DEPRESSION SCREENING 07/23/2024 COVID-19 VACCINE (1 - 2023-2 5 season) 2025 INFLUENZA VACCINE (#1) 2025 Respiratory Syncytial Virus (RSV) Vaccine Pt: [...] this topic Medical Devices Implanted Type Area Automatic Lehr Operator Device Identifier Shelf Expiration Date Model / Serial / Lot Unknown Aneurysm Coil Unknown Shunt Insurance Care Teams Machine Set Up Technician Relationship Specialty Start Date End Date Vinny Storm DO [address] [place] [id number] PCP - General Internal Medicine 09/14/23
[2025-04-20 11:34] LABS: Alanine Aminotransferase 23 U/L (6-35); Albumin Level 4.2 g/dL (3.5-5.1); Alkaline Phosphatase 128 U/L (38-126); Anion Gap 6 mmol/L (4-12); Aspartate Amino Transferase 21 U/L (14-36); Bilirubin,Total 0.4 mg/dL (0.2-1.3); Blood Urea Nitrogen 12 mg/dL (7-17); Calcium 9.4 mg/dL (8.4-10.2); Carbon Dioxide 31 mmol/L (22-30); Chloride 103 mmol/L (98-107); Estimated CRCL calculation 60 ml/min; Estimated Glomerular Filt Rate > 60; Glucose 117 mg/dL (65-110); Potassium 4.2 mmol/L (3.4-5.0); Sodium 140 mmol/L (137-145); Total Protein 7.0 g/dL (6.3-8.2)
[2025-04-20] MEDS: PHENYTOIN SODIUM 100 MG EXTENDED RELEASE CAP 400 MG PO (13:17)
== END 2025-04-20 15:26 ==
PROVIDERS: Emergency Provider General Practice; PCP Internal Medicine
DX: G40.909 Epilepsy, unspecified, not intractable, without status epilepticus (principal); F03.90 Unspecified dementia, unspecified severity, without behavioral disturbance, psychotic disturbance, mood disturbance, and anxiety; Z79.899 Other long term (current) drug therapy
CPT/HCPCS: 36415; 70250; 70450; 71045; 74018; 80053; 80177; 80185; 81001; 82948; 85025; 87086; 87186; 93005; 99284; A9270

== ENCOUNTER 2025-04-30 14:47 | Emergency (ER) | payer OTHER, SELFPAY ==
[2025-04-30 14:56] VITALS: BP 146/58; PULSE 61; RESP 14; TEMP 36.9; O2SAT 97
[2025-04-30 15:02] VITALS: PULSE 58; O2SAT 100
--- NOTE | 2025-04-30 15:03 | ED.SEIZURE ---
HPI - Seizure General Chief Complaint: Seizure Stated Complaint: Seizure Time Seen by Provider: 04/30/25 14:51 Source: patient, EMS and old records reviewed History of Present Illness HPI Narrative: This is a 75-year-old female with history of epilepsy presenting to the ED via EMS for seizure. Per EMS, patient was sitting at table at her facility when she began to slump over to her right side when staff noticed and eased her to the floor when she began to have convulsions. Seizures reportedly lasted less than 1 minute. She has had no additional seizure activity since then and is returning to baseline per EMS. The patient does have dementia and baseline is A/O x1. History is otherwise limited due to this. Seizure History: Yes Related Data Allergies Allergy/AdvReac Type Severity Reaction Status Date / Time codeine Allergy Unknown Hives Verified 04/30/25 15:04 Review of Systems Review of Systems: ROS unobtainable: Yes unobtainable due to mental status PMFSH Past Medical History Medical History Unspecified convulsions Other sequelae following nontraumatic subarachnoid hemorrhage Other cerebrovascular disease Vascular dementia, unspecified severity, without behavioral disturbance, psychotic disturbance, mood disturbance, and anxiety Anemia History of stroke with residual deficit Aneurysm Shunt, 2002 Stroke Melanoma Arthritis Seizures HLD (hyperlipidemia) HTN (hypertension) Family History Family History Father Family history of heart disease in male family member before age 55 Family history of cardiovascular disease Hypertension Mother Cerebrovascular accident Social History Social History Smoking status: Former smoker Alcohol intake: unknown Substance use: unknown Do You Feel Safe in your Home?: Yes Lack of Transportation: No Lack of Food: Never True Current Housing: I Have Housing Concerned About Future Housing: No Difficulty Paying Gas/Electric Bills: No Difficulty Paying for Meds: No Currently Unemployed: No Education: High School Diploma/GED Difficulty w/ Childcare or Family Care: No Living arrangements: [facility] Additional living arrangements comments: [facility] care concerns: No (unknown) Exam Narrative: APPEARANCE: No acute distress, nontoxic, resting in bed EYES: EOMI HEENT: Normocephalic, atraumatic, OMM RESPIRATORY: No respiratory distress Clear to auscultation bilaterally with no rhonchi wheezing or rales. CARDIOVASCULAR: Regular rate and rhythm without murmurs rubs or gallops. ABDOMINAL: Soft, nontender, nondistended, no rebound or guarding MUSCULOSKELETAl: Moves all extremities. No clubbing, cyanosis or edema. NEURO: AAO x1. Following commands, speech normal, no focal deficits SKIN:: Warm, dry. No rashes lesions or abrasions PSYCHIATRIC: Normal affect/mood, Course Vital Signs Vital signs: Vital Signs Temperature 98.4 F 04/30/25 14:56 Pulse Rate 61 04/30/25 14:56 Respiratory Rate 14 04/30/25 14:56 Blood Pressure 146/58 H 04/30/25 14:56 Pulse Oximetry 97 04/30/25 14:56 Oxygen Delivery Room Air 04/30/25 14:56 Temperature 98.1 F 04/30/25 17:05 Pulse Rate 62 04/30/25 17:05 Respiratory Rate 14 04/30/25 17:05 Blood Pressure 134/52 L 04/30/25 17:05 Pulse Oximetry 97 04/30/25 17:05 Oxygen Delivery Room Air 04/30/25 15:02 MDM - Seizure MDM Narrative Medical decision making narrative: 75-year-old [facility]. On initial evaluation, patient was in no acute distress, afebrile, hemodynamically stable. She was A/O x1 which is baseline per penitentiary. No longer having seizure activity. No focal deficits. UA was obtained which was consistent with UTI. Patient will be started on Bactrim. She was monitored in the ED for 1 hour with no return seizure activity. She does have close neurologic follow-up per [facility]. Patient was deemed appropriate for discharge at this time. Differential Diagnosis Differential diagnosis: Likely intractable seizure disorder, generalized seizure, epileptic seizure and status epilepticus Medical Records Attestation: I reviewed the patient's medical records. Lab Data Attestation: I reviewed the patient's lab results. Labs: Lab Results 04/30/25 Range/Units 15:30 Urine Color Yellow (Yellow) Urine Appearance Cloudy H (Clear) Urine pH 7.0 (5.0-9.0) Ur Specific [place] 1.014 (1.001-1.035) Urine Protein Negative (Negative) mg/dL Urine Glucose (UA) Negative (Negative) mg/dL Urine Ketones Negative (Negative) mg/dL Ur Blood (Man) Negative (Negative) Urine Nitrate Positive H (Negative) Urine Bilirubin Negative (Negative) Urine Urobilinogen 1.0 (<2.0) mg/dL Leukocyte Esterase Rfl Trace H (Negative) IRAIS/UL Urine RBC 0-2 (0-2) /hpf Urine WBC 0-5 (0-3) /hpf Ur Squamous Epith Cells Occasional (Few) /hpf Urine Bacteria 4+ H /hpf Urine Casts 3-5 Discharge Plan Discharge Clinical Impression: Acute UTI, Seizure Patient Disposition: Home Condition: Stable Instructions: Antibiotic Form, Epilepsy (ED), Urinary Tract Infection in Older Adults (ED) Patient Language: [place] Prescriptions: New sulfamethoxazole-trimethoprim [Bactrim DS] 800-160 mg tablet 1 tablet PO Q12H 7 Days Qty: 14 0RF No Action calcium carbonate-vitamin D3 600 mg(1,500mg) -400 unit tablet See Rx Instructions .ROUTE .COMPLEX Qty: 180 3RF Dose Instruction: TAKE 1 TABLET BY MOUTH EVERY MORNING AND BEDTIME Rx Instructions: TAKE 1 TABLET BY MOUTH EVERY MORNING AND BEDTIME clopidogrel [Plavix] 75 mg tablet 75 mg PO ONCE Qty: 90 0RF Rx Instructions: NEEDS APPOINTMENT FOR FURTHER REFILLS furosemide 40 mg tablet 40 mg PO DAILY Qty: 90 0RF Rx Instructions: NEEDS APPOINTMENT FOR FURTHER REFILLS lisinopril 5 mg tablet 5 mg PO DAILY Qty: 90 0RF Rx Instructions: NEEDS APPOINTMENT FOR FURTHER REFILLS phenytoin 50 mg tablet,chewable 100 mg PO TID Qty: 540 1RF Rx Instructions: NEEDS APPOINTMENT FOR FURTHER REFILLS escitalopram oxalate [Lexapro] 10 mg tablet 10 mg PO DAILY Qty: 90 0RF Rx Instructions: NEEDS APPOINTMENT FOR FURTHER REFILLS polyethylene glycol 3350 [Miralax] 17 gram/dose powder See Rx Instructions .ROUTE .COMPLEX Qty: 476 0RF Rx Instructions: Take (17G) by oral route everyday mixed with 8oz. water, juice, soda, coffee or tea; memantine 10 mg tablet 10 mg PO BID Qty: 180 0RF Rx Instructions: NEEDS APPOINTMENT FOR FURTHER REFILLS levetiracetam 100 mg/mL solution See Rx Instructions .ROUTE .COMPLEX Qty: 750 0RF Rx Instructions: Increase dose to 15ml in the morning and 10ml at bedtime. potassium chloride 20 mEq/15 mL liquid 10 meq PO DAILY Qty: 450 0RF simvastatin 20 mg tablet 20 mg PO .COMPLEX Qty: 90 0RF Rx Instructions: NEEDS APPOINTMENT FOR FURTHER REFILLS Frequency: Daily in the Evening acetaminophen 500 mg tablet 1,000 mg PO Q8H PRN (Reason: pain) Qty: 120 0RF Follow-up/Referrals: Vinny Storm DO [Primary Care Provider, Internal Medicine] Stand Alone Forms: [facility] Discharge
[2025-04-30 15:43] LABS: Add Urine Microscopic? YES; Appearance Urine Cloudy (Clear); Glucose Urine UA Negative (Negative); Leukocyte Esterase Ur Trace LEU/UL (Negative); Nitrate Urine Positive (Negative); Specific Grav Ur 1.014 (1.001-1.035)
[2025-04-30 16:18] VITALS: BP 131/50; PULSE 60; RESP 15; O2SAT 99
[2025-04-30] MEDS: SULFAMETHOXAZOLE/TRIMETHOPRIM 800/160 MG DS TABLET 1 TAB PO (16:18)
[2025-04-30 17:05] VITALS: BP 134/52; PULSE 62; RESP 14; TEMP 36.7; O2SAT 97
== END 2025-04-30 17:08 ==
PROVIDERS: Emergency Provider Student in an Organized Health Care Education/Training Program; PCP Internal Medicine
DX: G40.909 Epilepsy, unspecified, not intractable, without status epilepticus (principal); N39.0 Urinary tract infection, site not specified; I10 Essential (primary) hypertension; I69.098 Other sequelae following nontraumatic subarachnoid hemorrhage; E78.5 Hyperlipidemia, unspecified; F01.50 Vascular dementia, unspecified severity, without behavioral disturbance, psychotic disturbance, mood disturbance, and anxiety; Z86.2 Personal history of diseases of the blood and blood-forming organs and certain disorders involving the immune mechanism; Z85.820 Personal history of malignant melanoma of skin; Z87.891 Personal history of nicotine dependence; Z79.02 Long term (current) use of antithrombotics/antiplatelets; Z79.899 Other long term (current) drug therapy
CPT/HCPCS: 81001; 87077; 87086; 87186; 99284; A9270

== ENCOUNTER 2025-05-03 18:56 | Emergency (ER) | payer OTHER, SELFPAY ==
--- OUTSIDE RECORDS SUMMARY | 2009-12-12 19:00 | XMS_ITS | Continuity of Care Document ---
Author Organization [facility] Address [address] [place] [address] Phone Care Team Providers Care Graphite Grinder Name Role Phone [facility] Unavailable Unavail able No Anderson Unavailable Unavailable Procedures Procedure Date Vision Svcs Frames Purchases BF Polycarb Sphcyl [place] To +/-4d .12-2d Anti-reflective Coating Tax - Medical Eye Exam & Treatment Refraction Office/outpatient Visit, [facility] Advance Directives Directive Yes / No Effective Date File Name No Information Encounters Encounter Description Practice Location Reason(s) For Visit Diagnoses Date Provider Providers Copied on Encounter [facility], [address] [place] [address] [address], [place], [place], [id number], [place] tel:[phone] [facility] No Information 0 [facility]. [address], [address], [place], [place], [id number], [place]. tel:[phone] Referring Provider: Santi Barlow, [address], [place], [address]. tel:[phone] pena Provider: No Anderson, [address], [place], [address]. tel:[phone] [facility], [address], [place], [place], [id number], [place] tel:[phone] [facility] No Information -201 0 Yen Eliashil. [address] [place] [address], [address], [place]. tel:[phone] Referring Provider: Santi Barlow, [address] [place] [address], [facility] tel:[phone] Office/outpa tient Visit, [facility], [address], [place], [place], [id number], [place] tel:[phone] [place] [address] No Information 2-200 9 Yen Santi. [address] [place] [address], [facility], [place]. tel:[phone] Referring Provider: Santi Barlow, [address] [place] [address], [facility] tel:[phone] Family History Family Member Type Diagnosis Age [...]
[2025-05-03] VITALS (13 sets, daily range): BP systolic 120–146; BP diastolic 46–63; PULSE 60–66; RESP 11–18; TEMP 36.8; O2SAT 93–100
--- NOTE | ~2025-05-03 | XR_ITS ---
EXAMINATION: XR pelvis 1-2V, 05/03/2025 20:12 CDT HISTORY: fall COMPARISON: No comparisons available. Findings: No acute fracture or malalignment. Moderate degenerative changes Soft tissues unremarkable. Impression: No acute fracture or malalignment. Reviewed, dictated and finalized at location P. Impression: No acute fracture or malalignment.
--- NOTE | ~2025-05-03 | CT_ITS ---
CT HEAD NON-CONTRAST CT C-SPINE CT FACE Clinical History: fall head injury Comparison: CT brain 04/20/2025 Technique: Unenhanced axial images skull base to vertex. Coronal, sagittal reformats. Axial images thoracic inlet to skull base. Sagittal and coronal reformats. CT images acquired with automatic exposure control for dose reduction DLP: 681 mGy-cm Findings: Head: Age-related atrophy. Right frontal LEAD QA ANALYST shunt with catheter tip along septum pellucidum. Large encephalomalacia/chronic infarct right frontal lobe. Extensive white matter microvascular ischemic changes. Embolization coil left frontal lobe. Sulci, ventricles: Unremarkable. No intracerebral hemorrhage. No evidence acute territorial infarct. No mass effect, midline shift, intra-/extra-axial fluid collection. Bony calvarium intact. Visualized paranasal sinuses: Clear. Mastoid air cells: Clear. C-spine: No acute fracture. Grade 1 anterolisthesis C3 on 4. Straightening of normal cervical lordosis. Moderate degenerative changes. Disc disease C5-7.. Prevertebral soft tissues within normal limits. Visualized lung apices: Clear. Visualized thyroid: Unremarkable. No enlarged cervical nodes. CT face: No fractures. IMPRESSION: HEAD: 1. No acute intracranial findings. C-SPINE: 1. No acute fracture. CT FACE: 1. No fracture. Reviewed, dictated and finalized at location R. IMPRESSION: HEAD: 1. No acute intracranial findings. C-SPINE: 1. No acute fracture. CT FACE: 1. No fracture.
--- NOTE | ~2025-05-03 | XR_ITS ---
EXAMINATION: XR chest 1V, 05/03/2025 20:12 CDT HISTORY: fall COMPARISON: No comparisons available. Technique: Single view. Findings: Minimal left basilar infiltrate. No pneumothorax. Heart is normal size. Mediastinal and hilar contours are within normal limits. Bony thorax no acute abnormality. Metallic radiopaque foreign bodies overlying the left hemithorax. Impression: Small left lower lobe pneumonia Reviewed, dictated and finalized at location P. Impression: Small left lower lobe pneumonia
--- NOTE | ~2025-05-03 | XR_ITS ---
EXAMINATION: XR hand LT min 3V, 05/03/2025 20:12 CDT HISTORY: injury COMPARISON: No comparisons available. Findings: No acute fracture or malalignment. Moderate degenerative changes Soft tissues unremarkable. Impression: No acute fracture or malalignment. Reviewed, dictated and finalized at location P. Impression: No acute fracture or malalignment.
--- NOTE | ~2025-05-03 | XR_ITS ---
EXAMINATION: XR humerus LT, 05/03/2025 20:12 CDT HISTORY: fall COMPARISON: No comparisons available. Findings: No acute fracture or malalignment. Severe degenerative changes Soft tissues unremarkable. Impression: No acute fracture or malalignment. Reviewed, dictated and finalized at location P. Impression: No acute fracture or malalignment.
--- NOTE | ~2025-05-03 | CT_ITS ---
EXAMINATION: CT chest abdomen pelvis w con DATE: 05/03/2025 22:02 INDICATION: Fall. TECHNIQUE: Computed tomography (CT) of the chest, abdomen, and pelvis was performed with 100 mL Omnipaque 350 intravenous contrast. Automated exposure control and iterative reconstruction technique were employed. The dose-length product was 895.27 mGy-cm. COMPARISON: CT abdomen and pelvis 12/17/2023 FINDINGS: CHEST CT: The lungs demonstrate mild atelectasis. No pleural effusion. 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 The heart size is normal. There are coronary artery calcifications. No pericardial effusion. There is chronic height loss of multiple vertebral bodies. There are chronic compression fractures of T10 and T12. There is moderate thoracic spondylosis. There is thoracolumbar dextroscoliosis. ABDOMEN/PELVIS CT: The liver is normal. There is a 14 mm hypodense mass in the spleen without change, likely a cyst or granulomatous disease. There are changes of cholecystectomy. The pancreas, adrenal glands, and right kidney are normal. There is cortical thinning of left kidney. There is diverticulosis of the colon without evidence of diverticulitis. There is a large volume of stool in the colon. The appendix is normal. A ventriculoperitoneal shunt is noted. There are no pathologically enlarged lymph nodes. There is a small volume of pelvic ascites. There are chronic compression fractures of L1 and L4. IMPRESSION: 1. 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 2. Small volume of pelvic ascites. Reviewed, dictated and finalized at location E.
--- NOTE | ~2025-05-03 | XR_ITS ---
EXAMINATION: XR hand RT min 3V, 05/03/2025 20:12 CDT HISTORY: injury COMPARISON: No comparisons available. Findings: No acute fracture or malalignment. Moderate degenerative changes Soft tissues unremarkable. Impression: No acute fracture or malalignment. Reviewed, dictated and finalized at location P. Impression: No acute fracture or malalignment.
--- NOTE | 2025-05-03 19:23 | ECG_ITS ---
Test Date: 2025-05-03 23:28:20 Measurements Intervals [place] Rate: 61 P: 60 CO: 178 QRS: -14 QRSD: 86 T: 38 QT: 418 QTc: 423 Interpretive Statements SINUS RHYTHM LOW QRS VOLTAGE IN PRECORDIAL LEADS POSSIBLE RIGHT VENTRICULAR CONDUCTION DELAY POSSIBLE ANTERIOR MYOCARDIAL INFARCTION , PROBABLY OLD BASELINE ARTIFACT- I, II, III, AVR, AVL, AVF, V1-V6 ABNORMAL ECG Compared to ECG 04/20/2025 10:10:19 NO SIGNIFICANT CHANGE Electronically Signed On 05-04-2025 06:21:06 CDT by Elia Kelley D.O.
--- NOTE | 2025-05-03 19:27 | ED_ITS ---
HPI - Fall General Chief Complaint: Fall Stated Complaint: head injury Time Seen by Provider: 05/03/25 19:13 Source: patient and EMS Mode of arrival: EMS Limitations: dementia History of Present Illness HPI Narrative: Patient is a 75-year-old female presenting emergency department by EMS from [facility] is a intermediate status post a ground level fall, this was reportedly witnessed, skin tears present to bilateral dorsum of hands, hematoma to the left side of the head, epistaxis from the right nostril. Patient at baseline is alert orient times 1-2. Patient reportedly takes Plavix. No reported use of I had regulation. No reported loss of consciousness. Patient denies any pain at this time. Related Data Allergies Allergy/AdvReac Type Severity Reaction Status Date / Time codeine Allergy Unknown Hives Verified 05/03/25 19:12 Review of Systems 2 Review of Systems: ROS unobtainable: Yes unobtainable due to mental status PMFSH Past Medical History Medical History Unspecified convulsions Other sequelae following nontraumatic subarachnoid hemorrhage Other cerebrovascular disease Vascular dementia, unspecified severity, without behavioral disturbance, psychotic disturbance, mood disturbance, and anxiety Anemia History of stroke with residual deficit Aneurysm Shunt, 2002 Stroke Melanoma Arthritis Seizures HLD (hyperlipidemia) HTN (hypertension) Family History Family History Father Family history of heart disease in male family member before age 55 Family history of cardiovascular disease Hypertension Mother Cerebrovascular accident Social History Social History Smoking status: Former smoker Alcohol intake: unknown Substance use: unknown Do You Feel Safe in your Home?: Yes Lack of Transportation: No Lack of Food: Never True Current Housing: I Have Housing Concerned About Future Housing: No Difficulty Paying Gas/Electric Bills: No Difficulty Paying for Meds: No Currently Unemployed: No Education: High School Diploma/GED Difficulty w/ Childcare or Family Care: No Living arrangements: intermediate Additional living arrangements comments: [facility] care concerns: No (unknown) Exam 2 Narrative: CONST: No acute distress. Well nourished. HENMT: Head is normocephalic and atraumatic. Dry mucous membranes. No posterior oropharynx erythema. Dried blood in the right nostril, no active bleeding. No septal hematoma bilaterally. Midface stable. EYES: No scleral icterus. No conjunctival injection or pallor. PERRL. NECK: No meningeal signs. RESP: Able to speak in full sentences. Normal respiratory effort. CTAB. CARDIO: Regular rate. Regular rhythm. 2+ DP and radial pulses bilaterally. GI: Nondistended. No tenderness to palpation. Soft. : No CVA tenderness to palpation. SKIN: No rashes. NEURO: Oriented x1. Moves all extremities. EXTREM/MSK/BACK: No pedal edema. No midline vertebral tenderness to palpation or palpable step-offs. Mild tenderness palpation of the left humerus, no palpable deformities, no overlying skin changes. Bilateral dorsum of the hands small superficial hemostatic skin tears, no bony tenderness to palpation, no snuffbox tenderness to palpation bilaterally. PSYCH: Normal affect. Course Vital Signs Vital signs: Vital Signs Respiratory Rate 18 05/03/25 19:03 Blood Pressure 120/52 L 05/03/25 19:03 Temperature 98.2 F 05/03/25 19:13 Pulse Rate 65 05/03/25 22:11 Respiratory Rate 14 05/03/25 22:11 Blood Pressure 146/56 H 05/03/25 22:11 Pulse Oximetry 98 05/03/25 22:11 MDM - Fall MDM Narrative Medical decision making narrative: Patient presents with the above complaint. Initial vitals are remarkable for no significant abnormalities. Physical examination as noted above. Differential diagnosis includes was not limited to: Fracture, contusion, sprain, strain, skin tear, dehydration, other acute traumatic injuries. Plan discussed: Laboratory analysis, EKG, imaging, continues cardiac monitoring continuous pulse oximetry, tetanus booster for tetanus prophylaxis, IV fluids. EKG reveals sinus rhythm, rate 61, indeterminate axis, no ST elevations or depressions. CT of the chest reveals no evidence of acute intrathoracic abnormality. No focal consolidation, pleural effusion or pneumothorax. Cardiomegaly. Moderate T12 compression fracture deformity. CT of the abdomen pelvis reveals no acute intra-abdominal abnormality or solid organ injury. No free air or ascites. Urinary bladder wall thickening, nonspecific. Correlate with urinalysis. Cholecystectomy. Hepatic steatosis. Mild L1 and L4 compression fracture deformities. CT facial reveals no evidence of acute fracture of the facial bones. Orbital singh and globes are intact. Paranasal sinuses are clear. CT of the cervical spine reveals no evidence acute fracture or traumatic subluxation. No high-grade central canal stenosis. Multilevel spondylosis. CT of the head reveals no evidence of acute intracranial abnormality. Right frontal approach RETIREMENT CONSULTANT shunt catheter. Stable ventricular size. Chronic microvascular ischemic changes. Atrophy. Right frontal encephalomalacia. No intracranial hemorrhage, mass effect or edema. No skull fracture. Left humerus x-ray reveals no evidence of acute fracture or dislocation. Right hand x-ray reveals no evidence of acute fracture or dislocation. Left hand x-ray reveals no evidence of acute fracture or dislocation. Patient does not have any midline tenderness palpation in the T12 or L1 or L4 region. Review of old imaging reports notes multiple compression deformities. CBC is without any significant abnormalities. Comprehensive metabolic panel reveals a BUN of 25, glucose 126. Troponin is less than 0.012. Lipase is 148. TSH is 1.81. Total creatine kinase is 42. Lactic acid is 2.2. Magnesium is 2.3. Coags are within normal limits. Urinalysis has a turbid appearance, 1+ blood, 3-5 rbc's, many squamous epithelial cells, rare bacteria, budding yeast present. Patient was reassessed at the bedside. No changes in physical exam. Patient is in no acute distress. The patient has remained stable throughout the entire ED visit. Counseled patient regarding diagnostic results and potential diagnosis. Anticipatory guidance provided. Patient instructed to follow up with PCP within 2-3 days. Patient counseled on: false reassurance from an emergency department evaluation; no current evidence of a medical emergency; return immediately for any new, recurrent, worsening, concerning, or refractory symptoms. Patient prescribed diflucan. Prescription sent to preferred pharmacy. Medications discussed with patient. Additional verbal and printed discharge instructions were given and discussed with the patient. Patient verbally acknowledges understanding of condition and discharge instructions. All questions were answered to the patient's satisfaction. Patient is in agreement with the plan of care. The patient is stable for discharge and was discharged without incident. Lab Data 05/03/25 21:37 05/03/25 20:18 Labs: Lab Results 05/03/25 05/03/25 05/03/25 Range/Units 20:18 21:37 22:44 WBC 8.0 (4.5-10.0) K/mm3 RBC 3.95 L (4.2-5.4) M/mm3 Hgb 12.6 (12.0-15.0) g/dL Hct 38.1 (37.0-47.0) % MCV 96.5 (80-100) fl MCH 31.9 (26-34) pg MCHC 33.1 (32-36) g/dl RDW 12.7 (11.5-14.5) % Plt Count 268 (150-375) k/mm3 MPV 10.7 H (7.4-10.4) fl Immature Gran % (Auto) 0.3 (0-0.5) % Neut % (Auto) 61.6 (45.5-73.1) % Lymph % (Auto) 27.5 (18.3-44.2) % [place] % (Auto) 7.9 (2.6-8.5) % Eos % (Auto) 2.1 (0-4.4) % Baso % (Auto) 0.6 (0.2-1.2) % Lymph # (Auto) 2.19 (0.9-3.2) K/mm3 [place] # (Auto) 0.6 (0.1-0.6) K/mm3 Eos # (Auto) 0.2 (0-0.3) K/mm3 Baso # (Auto) 0.1 (0.0-0.1) K/mm3 Abs Immat Gran (auto) 0.02 (0.00-0.031) K/mm3 Absolute Neuts (auto) 4.9 (1.3-6.7) K/mm3 Absolute Nucleated RBC 0.000 (0.0-0.012) K/mm3 Nucleated RBC % 0.0 (0.0-0.2) % PT 12.4 (11.1-14.7) Seconds INR 0.9 APTT 26.2 (22.3-36.8) Seconds Sodium 142 (137-145) mmol/L Potassium 4.6 (3.4-5.0) mmol/L Chloride 105 (98-107) mmol/L Carbon Dioxide 29 (22-30) mmol/L Anion Gap 8 (4-12) mmol/L BUN 25 H D (7-17) mg/dL Creatinine 0.83 (0.7-1.0) mg/dL Estim Creat Clear Calc Not Reportable Estimated GFR > 60 (59 - ) Glucose 126 H (65-110) mg/dL Lactic Acid 2.2 H (0.7-2.0) mmol/L Calcium 10.1 (8.4-10.2) mg/dL Magnesium 2.3 (1.6-2.3) mg/dL Total Bilirubin 0.4 (0.2-1.3) mg/dL AST 26 (14-36) U/L ALT 23 (6-35) U/L Alkaline Phosphatase 134 H (38-126) U/L Total Creatine Kinase 42 (30-135) U/L Troponin I < 0.012 (0.000-0.034) ng/mL Total Protein 7.4 (6.3-8.2) g/dL Albumin 4.4 (3.5-5.1) g/dL Lipase 148 (23-300) U/L TSH (Reflex) 1.810 (0.465-4.68) uIU/mL Urine Color Yellow (Yellow) Urine Appearance Turbid H (Clear) Urine pH 8.5 (5.0-9.0) Ur Specific [place] 1.024 (1.001-1.035) Urine Protein Negative (Negative) mg/dL Urine Glucose (UA) Negative (Negative) mg/dL Urine Ketones Negative (Negative) mg/dL Ur Blood (Man) 1+ H (Negative) Urine Nitrate Negative (Negative) Urine Bilirubin Negative (Negative) Urine Urobilinogen 1.0 (<2.0) mg/dL Leukocyte Esterase Rfl Negative (Negative) IRAIS/UL Urine RBC 3-5 H (0-2) /hpf Urine WBC 0-5 (0-3) /hpf Ur Squamous Epith Cells Many H (Few) /hpf Urine Bacteria Rare /hpf Urine Casts 0-2 Urine Yeast (Budding) Present H (None) /hpf Discharge Plan Discharge Clinical Impression: Fall, Skin tear, Candidiasis, Epistaxis, Contusion Patient Disposition: NH Assisted/Asst Living Condition: Stable Instructions: Antibiotic Form, Yeast Infection (ED), Contusion in Adults (ED), Skin Tear (ED), Fall Prevention (ED) Additional Instructions: Follow-up with your primary care physician the next 2-3 days for reassessment, take Tylenol as needed for any discomfort, soap water to your wounds with fresh bandages daily, take a dose of Diflucan in 3 days, return immediately to the emergency department for any new or concerning symptoms especially any emergent concerns for life, limb, eyesight. Patient Language: [place] Prescriptions: New fluconazole 150 mg tablet 150 mg PO ONCE Qty: 1 0RF Rx Instructions: as a single dose, take on 05/06/2025. No Action sulfamethoxazole-trimethoprim [Bactrim DS] 800-160 mg tablet 1 tablet PO Q12H 7 Days Qty: 14 0RF calcium carbonate-vitamin D3 600 mg(1,500mg) -400 unit tablet See Rx Instructions .ROUTE .COMPLEX Qty: 180 3RF Dose Instruction: TAKE 1 TABLET BY MOUTH EVERY MORNING AND BEDTIME Rx Instructions: TAKE 1 TABLET BY MOUTH EVERY MORNING AND BEDTIME clopidogrel [Plavix] 75 mg tablet 75 mg PO ONCE Qty: 90 0RF Rx Instructions: NEEDS APPOINTMENT FOR FURTHER REFILLS furosemide 40 mg tablet 40 mg PO DAILY Qty: 90 0RF Rx Instructions: NEEDS APPOINTMENT FOR FURTHER REFILLS lisinopril 5 mg tablet 5 mg PO DAILY Qty: 90 0RF Rx Instructions: NEEDS APPOINTMENT FOR FURTHER REFILLS phenytoin 50 mg tablet,chewable 100 mg PO TID Qty: 540 1RF Rx Instructions: NEEDS APPOINTMENT FOR FURTHER REFILLS escitalopram oxalate [Lexapro] 10 mg tablet 10 mg PO DAILY Qty: 90 0RF Rx Instructions: NEEDS APPOINTMENT FOR FURTHER REFILLS polyethylene glycol 3350 [Miralax] 17 gram/dose powder See Rx Instructions .ROUTE .COMPLEX Qty: 476 0RF Rx Instructions: Take (17G) by oral route everyday mixed with 8oz. water, juice, soda, coffee or tea; memantine 10 mg tablet 10 mg PO BID Qty: 180 0RF Rx Instructions: NEEDS APPOINTMENT FOR FURTHER REFILLS levetiracetam 100 mg/mL solution See Rx Instructions .ROUTE .COMPLEX Qty: 750 0RF Rx Instructions: Increase dose to 15ml in the morning and 10ml at bedtime. potassium chloride 20 mEq/15 mL liquid 10 meq PO DAILY Qty: 450 0RF simvastatin 20 mg tablet 20 mg PO .COMPLEX Qty: 90 0RF Rx Instructions: NEEDS APPOINTMENT FOR FURTHER REFILLS Frequency: Daily in the Evening acetaminophen 500 mg tablet 1,000 mg PO Q8H PRN (Reason: pain) Qty: 120 0RF Follow-up/Referrals: Vinny Storm DO [Primary Care Provider, Internal Medicine] - 2 Days Stand Alone Forms: Prison Discharge Time of Disposition: 23:34
[2025-05-03 20:48] LABS: Alanine Aminotransferase 23 U/L (6-35); Albumin Level 4.4 g/dL (3.5-5.1); Alkaline Phosphatase 134 U/L (38-126); Anion Gap 8 mmol/L (4-12); Aspartate Amino Transferase 26 U/L (14-36); Bilirubin,Total 0.4 mg/dL (0.2-1.3); Blood Urea Nitrogen 25 mg/dL (7-17); Calcium 10.1 mg/dL (8.4-10.2); Carbon Dioxide 29 mmol/L (22-30); Chloride 105 mmol/L (98-107); Creatine Kinase 42 U/L (30-135); Estimated Glomerular Filt Rate > 60; Glucose 126 mg/dL (65-110); Lipase 148 U/L (23-300); Magnesium 2.3 mg/dL (1.6-2.3); Potassium 4.6 mmol/L (3.4-5.0); Sodium 142 mmol/L (137-145); Total Protein 7.4 g/dL (6.3-8.2); Troponin I < 0.012 ng/mL (0.000-0.034)
[2025-05-03 21:30] LABS: Thyroid Stimulating Hormone Reflex 1.810 uIU/mL (0.465-4.68)
[2025-05-03] MEDS: SODIUM CHLORIDE 0.9% IV 1,000 ML 999 ML IV CONT (21:38)
[2025-05-03 21:44] LABS: Hematocrit 38.1 % (37.0-47.0); Hemoglobin 12.6 g/dL (12.0-15.0); Immature Granulocyte Percent A 0.3 % (0-0.5); Lymphocytes Absolute Auto 2.19 K/mm3 (0.9-3.2); Mean Corpuscular HGB Conc 33.1 g/dl (32-36); Mean Corpuscular Hemoglobin 31.9 pg (26-34); Mean Corpuscular Volume 96.5 fl (80-100); Nucleated Red Blood Cells Absolute Auto 0.000 K/mm3 (0.0-0.012); Nucleated Red Blood Cells Perc 0.0 % (0.0-0.2); Platelet Count Result 268 k/mm3 (150-375); Red Blood Count 3.95 M/mm3 (4.2-5.4); White Blood Count 8.0 K/mm3 (4.5-10.0)
[2025-05-03 22:07] LABS: INR 0.9; Prothrombin Time 12.4 Seconds (11.1-14.7)
[2025-05-03] MEDS: TETANUS,DIPHTHERIA,AC PERTUSSIS ADULT (0.5 ML) BOOSTRIX IM (22:07)
[2025-05-03 22:08] LABS: Partial Thromboplastin Time 26.2 Seconds (22.3-36.8)
[2025-05-03 23:16] LABS: Add Urine Microscopic? YES; Appearance Urine Turbid (Clear); Budding Yeast Urine Present /hpf; Glucose Urine UA Negative (Negative); Leukocyte Esterase Ur Negative LEU/UL (Negative); Nitrate Urine Negative (Negative); Non Pathogenic Casts 0-2; Specific Grav Ur 1.024 (1.001-1.035)
[2025-05-03] MEDS: FLUCONAZOLE 150 MG TABLET PO (23:47)
[2025-05-04 00:08] VITALS: PULSE 61; RESP 11
[2025-05-04 00:15] VITALS: PULSE 60; RESP 10
--- NOTE | 2025-05-04 08:04 | PC.NURSE ---
Patient placed on bed alarm
[2025-05-04 08:36] VITALS: BP 151/79; PULSE 72; RESP 16; O2SAT 99
== END 2025-05-04 10:29 ==
PROVIDERS: Emergency Provider Student in an Organized Health Care Education/Training Program; PCP Internal Medicine
DX: S00.93XA Contusion of unspecified part of head, initial encounter (principal); S61.412A Laceration without foreign body of left hand, initial encounter; S61.411A Laceration without foreign body of right hand, initial encounter; R04.0 Epistaxis; Z23 Encounter for immunization; F01.50 Vascular dementia, unspecified severity, without behavioral disturbance, psychotic disturbance, mood disturbance, and anxiety; I69.098 Other sequelae following nontraumatic subarachnoid hemorrhage; I69.30 Unspecified sequelae of cerebral infarction; I67.89 Other cerebrovascular disease; I10 Essential (primary) hypertension; E78.5 Hyperlipidemia, unspecified; M19.90 Unspecified osteoarthritis, unspecified site; Z85.820 Personal history of malignant melanoma of skin; Z87.891 Personal history of nicotine dependence; Z90.49 Acquired absence of other specified parts of digestive tract; Z79.899 Other long term (current) drug therapy; Z79.02 Long term (current) use of antithrombotics/antiplatelets; W18.30XA Fall on same level, unspecified, initial encounter; R94.31 Abnormal electrocardiogram [ECG] [EKG]; I71.22 Aneurysm of the aortic arch, without rupture
CPT/HCPCS: 36415; 70450; 70486; 71045; 71260; 72125; 72170; 73060; 73130; 74177; 80053; 81001; 82550; 83605; 83690; 83735; 84443; 84484; 85025; 85610; 85730; 90471; 90715; 93005; 96360; 99284; A9270; J7030; Q9967

== ENCOUNTER 2025-06-22 12:24 | Emergency (ER) | payer OTHER, SELFPAY ==
[2025-06-22] VITALS (54 sets, daily range): BP systolic 123–157; BP diastolic 56–76; PULSE 54–67; RESP 10–21; TEMP 36.6–36.9; O2SAT 95–100
--- NOTE | ~2025-06-22 | XR_ITS ---
EXAMINATION: XR chest 1V portable COMPARISON: No comparisons available. HISTORY: difficulty breathing? FINDINGS: Mild pulmonary venous congestion. No pneumothorax. Mild cardiomegaly. Mediastinal and hilar contours are within normal limits. Bony thorax no acute abnormality. Miscellaneous: Probable right-sided INTERNATIONAL TRADE TEACHER shunt. Impression: Mild CHF Reviewed, dictated and finalized at location P. OLOGY TECHNICIAN Impression: Mild CHF
--- NOTE | ~2025-06-22 | CT_ITS ---
EXAMINATION: CT brain wo darryl, 06/22/2025 14:20 PRESS OPERATOR HISTORY: hx aneurysm, SAH, CVA; hx SOFTWARE PUBLISHER shunt COMPARISON: No comparisons available. Technique: Axial images obtained of the brain without contrast. One or more of the following dose reduction techniques were used: automated exposure control, adjustment of the mA and/or kV according to patient size, use of iterative reconstruction technique. Findings: There is encephalomalacia within the right frontal lobe with sequelae of previous infarct with artifact from metallic clips related to previous intervention. There is no hydrocephalus or midline shift. No extra-axial fluid collections. No acute infarct or hemorrhage. Mastoid air cells unremarkable. Sinuses and orbits unremarkable. No acute fracture. Right-sided SOFTWARE PUBLISHER shunt terminates in the right frontal horn. Impression: 1.No acute intracranial abnormality. Reviewed, dictated and finalized at location P. S OPERATOR Impression: 1.No acute intracranial abnormality.
--- NOTE | 2025-06-22 12:44 | ECG_ITS ---
Test Date: 2025-06-22 13:47:43 Measurements Intervals [place] Rate: 56 P: 38 MD: 174 QRS: 4 QRSD: 86 T: 30 QT: 419 QTc: 407 Interpretive Statements SINUS BRADYCARDIA POSSIBLE RIGHT VENTRICULAR CONDUCTION DELAY BASELINE ARTIFACT- I, II, III, AVR, AVL, AVF, V1-V3 BORDERLINE ECG Compared to ECG 05/03/2025 23:28:20 NO SIGNIFICANT CHANGE Electronically Signed On 06-22-2025 14:11:44 COMMISSIONS COORDINATOR by Elia Kelley D.O.
[2025-06-22 13:06] LABS: Hematocrit 41.6 % (37.0-47.0); Hemoglobin 13.7 g/dL (12.0-15.0); Immature Granulocyte Percent A 0.2 % (0-0.5); Lymphocytes Absolute Auto 1.47 K/mm3 (0.9-3.2); Mean Corpuscular HGB Conc 32.9 g/dl (32-36); Mean Corpuscular Hemoglobin 32.3 pg (26-34); Mean Corpuscular Volume 98.1 fl (80-100); Nucleated Red Blood Cells Absolute Auto 0.000 K/mm3 (0.0-0.012); Nucleated Red Blood Cells Perc 0.0 % (0.0-0.2); Platelet Count Result 273 k/mm3 (150-375); Red Blood Count 4.24 M/mm3 (4.2-5.4); White Blood Count 5.4 K/mm3 (4.5-10.0)
--- NOTE | 2025-06-22 13:21 | ED.SEIZURE ---
HPI - Seizure General Chief Complaint: Seizure Stated Complaint: focal seizure Time Seen by Provider: 06/22/25 12:51 Source: patient and RN notes reviewed Mode of arrival: EMS Limitations: dementia and other (alert and oriented x1 at baseline) History of Present Illness HPI Narrative: Patient presents with report of possible focal seizure by report. She resides at [facility] and was eating lunch when it is reported that focal seizure activity lasted 3-4 minutes. Unclear of details beyond this. She was seated at the time and did not fall or injure herself. A&O x1 at baseline which is how she reports now. EMS obtained glucose 113mg/dL. History of SAH , epilepsy and vascular dementia. Reportedly disoriented at one point though unclear how. She denies any pain or headache in triage and stated she felt normal. Denies pain to me as well. No chest pain, RUFF, abdominal pain. She initially denies shortness of breath then says yes and points to the pulse oximeter on her finger. States she doesn't like me wearing a mask. Denies cough. She does not know her medications or anything about her health history. Seizure History: Yes Related Data Allergies Allergy/AdvReac Type Severity Reaction Status Date / Time codeine Allergy Unknown Hives Verified 05/14/25 11:10 [facility] Past Medical History Medical History Epilepsy, unspecified, intractable, with status epilepticus Unspecified convulsions Other sequelae following nontraumatic subarachnoid hemorrhage Other cerebrovascular disease Vascular dementia, unspecified severity, without behavioral disturbance, psychotic disturbance, mood disturbance, and anxiety Anemia History of stroke with residual deficit Aneurysm Shunt, 2001 Stroke Melanoma Arthritis Seizures HLD (hyperlipidemia) HTN (hypertension) Family History Family History Father Family history of heart disease in male family member before age 55 Family history of cardiovascular disease Hypertension Mother Cerebrovascular accident Social History Social History Social History: Code Status: POLST signed 03/29/23 lists Full Code (Attempt Resuscitation/CPR) Smoking status: Former smoker Alcohol intake: unknown Substance use: unknown Lack of Transportation: No Lack of Food: Never True Current Housing: I Have Housing Concerned About Future Housing: No Difficulty Paying Gas/Electric Bills: No Difficulty Paying for Meds: No Currently Unemployed: No Education: High School Diploma/GED Difficulty w/ Childcare or Family Care: No Living arrangements: halfway Additional living arrangements comments: [facility] since 01/16/24 Spiritual care concerns: No (unknown) Exam Narrative: GENERAL: Well-appearing, well-nourished, and in no acute distress. HEAD: Normocephalic, atraumatic. EYES: Non injected, non icteric. Pupils grossly equal/symmetric. ENT: Nares clear, no rhinorrhea or epistaxis. Gross auditory acuity intact. NECK: Supple. No meningismus. CHEST: Speaking in full sentences. No respiratory distress. Lungs clear to auscultation bilaterally without wheezes or crackles. HEART: Regular rate and rhythm. . ABDOMEN: Soft, nondistended. No rigidity or guarding. Not peritoneal EXTREMITIES: Normal range of motion. SKIN: Warm, dry, no rash. NEURO: No focal deficits. Alert and oriented to self. Answering simple questions but unclear the validity of her answers. Following commands. Normal speech without aphasia or dysarthria. PSYCH: Congruent mood and affect. Course Vital Signs Vital signs: Vital Signs Temperature 97.8 F 06/22/25 12:23 Pulse Rate 64 06/22/25 12:23 Respiratory Rate 18 06/22/25 12:23 Blood Pressure 133/60 06/22/25 12:23 Pulse Oximetry 98 06/22/25 12:23 Oxygen Delivery Room Air 06/22/25 12:23 Temperature 98.4 F 06/22/25 15:36 Pulse Rate 54 L 06/22/25 21:02 Respiratory Rate 12 06/22/25 21:02 Blood Pressure 152/65 H 06/22/25 21:02 Pulse Oximetry 99 06/22/25 21:02 Oxygen Delivery Room Air 06/22/25 12:23 MDM - Seizure MDM Narrative Medical decision making narrative: 75 yo patient with reported history of vascular dementia, SAH, and epilepsy presents after it was reported she had focal seizure activity for 3-4 minutes while sated. No injury/trauma although the details of what occurred are unclear. It was also reported that she was disoriented but unknown how. A&O x1 on arrival which is her reported baseline. In the emergency department they are afebrile with vital signs within normal limits. Patient cannot recall her antiepileptic medications. Per review of her medication list from the facility she takes 15 mL of 100 milligram/milliliter strength Keppra in the morning (1500) and 10 mL of 100 milligram/milliliter strength Keppra (1000) at night as well as two 50mg (100mg total each dose) t.i.d. phenytoin. Levels of both of these are ordered. She reports having difficulty breathing although appears comfortable, SpO2 97% on room air, non labored and initially shook her head no but states she was when she points to the pulse ox and says that she doesn't like that I am wearing my mask although seems reassured when I explained why I do so. Nodding and saying, You're great. CBC with mild abnormalities on the differential but otherwise without leukocytosis, thrombocytopenia, anemia. Alkaline phosphatase elevated, chronically intermittently seen before. Phenytoin level 12. Lactic acid normal although it was drawn after patient had been in the ED for a bit. Mild CHF per CXR as well as INFIRMARY ATTENDANT shunt suspected. BNP ordered; no history CHF per review of EMR. Will proceed with CT imaging given shunt as history of aneurysm and stroke and SAH. BNP not abnormal, especially for reference range of patient's age. Discussed with Dr Carlson who Recommend 1500mg BID Levitiracitam (15mL of 100mg/mL strength BID) and daily dose 330mg Phenytoin (130 AM and two 100mg at night). Recommends follow up in a few months time with blood levels beforehand for both. Urinalysis unremarkable. Stable for discharge back to facility. EMS transportation is arranged but there is a bit of a delay due to weather/road conditions. She remains otherwise stable in the ED throughout. Rx for supplemental antiepileptic drugs are provided which can be added to current Rx to create the desired dosing recommendations. Differential Diagnosis Differential diagnosis: Likely intractable seizure disorder, focal seizure, generalized seizure, epileptic seizure, status epilepticus and other (infection, recrudescence; intracrnial hemorrhage; shunt malfunction) Lab Data Attestation: I reviewed the patient's lab results. 06/22/25 12:57 06/22/25 13:39 Labs: Lab Results 06/22/25 06/22/25 06/22/25 Range/Units 12:57 13:39 15:44 WBC 5.4 (4.5-10.0) K/mm3 RBC 4.24 (4.2-5.4) M/mm3 Hgb 13.7 (12.0-15.0) g/dL Hct 41.6 (37.0-47.0) % MCV 98.1 (80-100) fl MCH 32.3 (26-34) pg MCHC 32.9 (32-36) g/dl RDW 13.1 (11.5-14.5) % Plt Count 273 (150-375) k/mm3 MPV 10.7 H (7.4-10.4) fl Immature Gran % (Auto) 0.2 (0-0.5) % Neut % (Auto) 60.7 (45.5-73.1) % Lymph % (Auto) 27.4 (18.3-44.2) % Barren % (Auto) 7.8 (2.6-8.5) % Eos % (Auto) 3.2 (0-4.4) % Baso % (Auto) 0.7 (0.2-1.2) % Lymph # (Auto) 1.47 (0.9-3.2) K/mm3 Barren # (Auto) 0.4 (0.1-0.6) K/mm3 Eos # (Auto) 0.2 (0-0.3) K/mm3 Baso # (Auto) 0.0 (0.0-0.1) K/mm3 Abs Immat Gran (auto) 0.01 (0.00-0.031) K/mm3 Absolute Neuts (auto) 3.3 (1.3-6.7) K/mm3 Absolute Nucleated RBC 0.000 (0.0-0.012) K/mm3 Nucleated RBC % 0.0 (0.0-0.2) % PT 12.9 (11.1-14.7) Seconds INR 1.0 APTT 26.1 (22.3-36.8) Seconds Sodium 143 (137-145) mmol/L Potassium 3.5 (3.4-5.0) mmol/L Chloride 106 (98-107) mmol/L Carbon Dioxide 34 H (22-30) mmol/L Anion Gap 3 L (4-12) mmol/L BUN 15 D (7-17) mg/dL Creatinine 0.62 L (0.7-1.0) mg/dL Estim Creat Clear Calc 61 ml/min Estimated GFR > 60 (59 - ) Glucose 130 H (65-110) mg/dL Lactic Acid 2.0 (0.7-2.0) mmol/L Calcium 9.9 (8.4-10.2) mg/dL Total Bilirubin 0.5 (0.2-1.3) mg/dL AST 25 (14-36) U/L ALT 24 (6-35) U/L Alkaline Phosphatase 165 H (38-126) U/L NT-Pro-B Natriuret Pep 124 H (19.9-100) pg/mL Total Protein 7.4 (6.3-8.2) g/dL Albumin 4.3 (3.5-5.1) g/dL Urine Color Yellow (Yellow) Urine Appearance Clear (Clear) Urine pH 7.5 (5.0-9.0) Ur Specific [place] 1.010 (1.001-1.035) Urine Protein Negative (Negative) mg/dL Urine Glucose (UA) Negative (Negative) mg/dL Urine Ketones Negative (Negative) mg/dL Ur Blood (Man) Negative (Negative) Urine Nitrate Negative (Negative) Urine Bilirubin Negative (Negative) Urine Urobilinogen 0.2 (<2.0) mg/dL Leukocyte Esterase Rfl Negative (Negative) IRAIS/UL Phenytoin 12 (10-20) ug/mL Levetiracetam Pending Imaging Data Radiologist's impression: Impressions Chest X-Ray 06/22/25 14:17 Impression: Mild CHF Head CT 06/22/25 14:42 Impression: 1.No acute intracranial abnormality. ECG Data EKG #1: Attestation: I personally reviewed and interpreted this ECG as follows: ECG completion date: 06/22/25 ECG completion time: 13:47 Interpretation: Sinus bradycardia rate of 56 beats per minute. PA interval 174. QRS 86. QT/QTC 419/407. Good R-wave progression across the precordial leads. No T-wave inversions. Discharge Plan Discharge Clinical Impression: Alkaline phosphatase elevation, Mental status change resolved Patient Disposition: [facility] Condition: Stable Instructions: Antibiotic Form, Epilepsy (DC), Altered Mental Status (ED) Additional Instructions: Your work up was unremarkable. The neurologist recommended increasing Keppra to 1500mg BID (so 15mL in the AM and 15ML QHS). Also recommends 330mg total phenytoin daily which can be done BID rather than TID dosing (130mg QAM and 200mg QHS). Also recommends following up in a few months time and obtaining serum levels of both drugs beforehand if possible. These can be ordered as outpatient labs. PCP/facility biomedical equipment support specialist should be able to do this. She can follow up with either her neurologist or, if she doesn't have one, the name of one is listed below. Continue taking other meds as prescribed and return to the ED with new/worsening symptoms. Patient Language: Indonesian Prescriptions: New levetiracetam [Keppra] 100 mg/mL solution 1,500 mg PO Q12H Qty: 473 0RF phenytoin sodium extended 30 mg capsule 30 mg PO DAILY Qty: 30 0RF Rx Instructions: supplement /change order. Take 130mg (100mg + 30mg) QAM and take 200mg QHS (separate order) No Action lisinopril 5 mg tablet 5 mg PO DAILY Qty: 90 0RF simvastatin 20 mg tablet 20 mg PO .COMPLEX Qty: 90 0RF Rx Instructions: Frequency: Daily in the Evening escitalopram oxalate [Lexapro] 10 mg tablet 10 mg PO DAILY Qty: 90 0RF clopidogrel [Plavix] 75 mg tablet 75 mg PO ONCE Qty: 90 0RF furosemide 40 mg tablet 40 mg PO DAILY Qty: 90 0RF calcium carbonate-vitamin D3 600 mg(1,500mg) -400 unit tablet See Rx Instructions .ROUTE .COMPLEX Qty: 180 3RF Dose Instruction: TAKE 1 TABLET BY MOUTH EVERY MORNING AND BEDTIME Rx Instructions: TAKE 1 TABLET BY MOUTH EVERY MORNING AND BEDTIME phenytoin 50 mg tablet,chewable 100 mg PO TID Qty: 540 1RF Rx Instructions: NEEDS APPOINTMENT FOR FURTHER REFILLS polyethylene glycol 3350 [Miralax] 17 gram/dose powder See Rx Instructions .ROUTE .COMPLEX Qty: 476 0RF Rx Instructions: Take (17G) by oral route everyday mixed with 8oz. water, juice, soda, coffee or tea; memantine 10 mg tablet 10 mg PO BID Qty: 180 0RF Rx Instructions: NEEDS APPOINTMENT FOR FURTHER REFILLS levetiracetam 100 mg/mL solution See Rx Instructions .ROUTE .COMPLEX Qty: 750 0RF Rx Instructions: Increase dose to 15ml in the morning and 10ml at bedtime. potassium chloride 20 mEq/15 mL liquid 10 meq PO DAILY Qty: 450 0RF acetaminophen 500 mg tablet 1,000 mg PO Q8H PRN (Reason: pain) Qty: 120 0RF Follow-up/Referrals: Blake Carlson MD [Physician, Neurology] Vinny Storm DO [Primary Care Provider, Internal Medicine] Stand Alone Forms: Alf Discharge Time of Disposition: 16:50
[2025-06-22 13:27] LABS: INR 1.0; Prothrombin Time 12.9 Seconds (11.1-14.7)
[2025-06-22 13:28] LABS: Partial Thromboplastin Time 26.1 Seconds (22.3-36.8)
--- OUTSIDE RECORDS SUMMARY | 2025-06-22 14:01 | XMS_ITS | Clinical Summary ---
Author Organization [facility] [employer] Address [address] [place] [address] Care Team Providers Care Tire Wrapper Name Role Phone Vinny Storm DO Primary Care Provider [phone] Source Comments [facility],non-owned Affiliates and Associated Physician Practices is amultiple site organization consisting of ambulatory clinics and hospital sitesin [place], [place], [place]. This disclosure is being madepursuant to the Care Everywhere program and may not contain all informatio navailable regarding this patient. 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 Gender Identity Not on file Sexual Orientation Not on file Last Filed Vital Signs Vital Sign Reading Time Taken Comments Blood Pressure 135/14 09/14/2023 7:00 PM BOILER OPERATOR Pulse 59 09/14/2023 7:00 PM BOILER OPERATOR Temperature 37.1 C (98.7 F) 09/14/2023 8:50 AM BOILER OPERATOR Respiratory Rate 18 09/14/2023 7:00 PM BOILER OPERATOR Oxygen Saturation 96% 09/14/2023 7:00 PM BOILER OPERATOR Inhaled Oxygen Concentration - - Weight 82.6 kg (182 lb) 09/14/2023 8:50 AM BOILER OPERATOR Height 172.7 cm (5' 8) 09/14/2023 8:50 AM BOILER OPERATOR Body Mass Index 27.67 09/14/2023 8:50 AM BOILER OPERATOR Plan of Treatment Health Maintenance Due Date [...] DEPRESSION SCREENING 07/23/2024 COVID-19 VACCINE (1 - 2024-2 6 season) 2025 INFLUENZA VACCINE (#1) 2025 Respiratory [...] this topic Medical Devices Implanted Type Area Welfare Eligibility Worker Device Identifier Shelf Expiration Date Model / Serial / Lot Unknown Aneurysm Coil Unknown Shunt Insurance [facility] MEDICARE Care Teams Tire Wrapper Relationship Specialty Start Date End Date Vinny Storm DO [address] [place] [phone] PCP - General Internal Medicine 09/14/23
[2025-06-22 14:03] LABS: Alanine Aminotransferase 24 U/L (6-35); Albumin Level 4.3 g/dL (3.5-5.1); Alkaline Phosphatase 165 U/L (38-126); Anion Gap 3 mmol/L (4-12); Aspartate Amino Transferase 25 U/L (14-36); Bilirubin,Total 0.5 mg/dL (0.2-1.3); Blood Urea Nitrogen 15 mg/dL (7-17); Calcium 9.9 mg/dL (8.4-10.2); Carbon Dioxide 34 mmol/L (22-30); Chloride 106 mmol/L (98-107); Estimated CRCL calculation 61 ml/min; Estimated Glomerular Filt Rate > 60; Glucose 130 mg/dL (65-110); Potassium 3.5 mmol/L (3.4-5.0); Sodium 143 mmol/L (137-145); Total Protein 7.4 g/dL (6.3-8.2)
[2025-06-22 14:49] LABS: NT Pro B Type Natriuretic Pept 124 pg/mL (19.9-100)
[2025-06-22 15:53] LABS: Add Urine Microscopic? NO; Appearance Urine Clear (Clear); Glucose Urine UA Negative (Negative); Leukocyte Esterase Ur Negative LEU/UL (Negative); Nitrate Urine Negative (Negative); Specific Grav Ur 1.010 (1.001-1.035)
== END 2025-06-22 22:18 ==
PROVIDERS: Emergency Provider Student in an Organized Health Care Education/Training Program; PCP Internal Medicine
DX: R41.82 Altered mental status, unspecified (principal); R74.8 Abnormal levels of other serum enzymes; R06.02 Shortness of breath; G40.909 Epilepsy, unspecified, not intractable, without status epilepticus; F01.50 Vascular dementia, unspecified severity, without behavioral disturbance, psychotic disturbance, mood disturbance, and anxiety; D64.9 Anemia, unspecified; I10 Essential (primary) hypertension; I69.30 Unspecified sequelae of cerebral infarction; M19.90 Unspecified osteoarthritis, unspecified site; Z85.820 Personal history of malignant melanoma of skin; Z87.891 Personal history of nicotine dependence; Z79.02 Long term (current) use of antithrombotics/antiplatelets; Z79.899 Other long term (current) drug therapy; R00.1 Bradycardia, unspecified; R94.31 Abnormal electrocardiogram [ECG] [EKG]
CPT/HCPCS: 36415; 70450; 71045; 80053; 80177; 80185; 81003; 83605; 83880; 85025; 85610; 85730; 93005; 99284